=== PATIENT | male | born 1990 | race Caucasian/White ===

== ENCOUNTER 2018-10-24 18:57 | Emergency (ER) | payer MEDICAID, OTHER ==
[~2018-10-24] VITALS: Ht 182.9 cm; Wt 72.6 kg
[~2018-10-24 18:57] MED LIST: HUM7525 SQ; INSU100C4 SQ; INSU100I25 SQ; INSU100V12 SQ; MAGN400C PO; NEED-136 SQ; NO HOME MEDS; POTA10TA36 PO; [UNRECOGNIZED DRUG - CODE]
[2018-10-24 19:23] LABS: EOSINOPHILS % (AUTO) 0 % (0-6); LYMPHOCYTES # (AUTO) 1.1 X10'3 (1.1-4.8); NEUTROPHILS # (AUTO) 12.8 X10'3 (1.8-7.7)
[2018-10-24 19:25] LABS: BASOPHILS % (AUTO) 0.1 % (0-1); HEMATOCRIT 42.3 % (42.0-52.0); HEMOGLOBIN 14.5 g/dl (14.0-17.9); MEAN CORPUSCULAR HGB CONC 34.4 g/dL (33.0-36.5); MEAN CORPUSCULAR VOLUME 93.3 FL (78-98); MONOCYTES # (AUTO) 1.4 X10'3 (0-0.9); MONOCYTES % (AUTO) 9.3 % (2-12); NEUTROPHILS % (AUTO) 83.6 % (42-75); PLATELET COUNT 403 X10'3 (140-440); RED BLOOD COUNT 4.53 X10'6 (4.70-6.10); WHITE BLOOD COUNT 15.4 X10'3 (4.5-11.0)
--- NOTE | 2018-10-24 19:27 | NUR ---
IN ROUTE EMS GAVE IL NS
[2018-10-24 19:32] LABS: ALANINE AMINOTRANSFERASE 63 U/L (12-78); ALBUMIN 3.3 G/DL (3.4-5.0); ALBUMIN/GLOBULIN RATIO 0.9 (1.1-1.5); ALKALINE PHOSPHATASE 129 IU/L (46-116); AMYLASE 29 U/L (25-115); ANION GAP 15 (8-16); ASPARTATE AMINO TRANSFERASE 20 U/L (10-37); BILIRUBIN,TOTAL 0.4 MG/DL (0.1-1.0); BLOOD UREA NITROGEN 34 MG/DL (7-18); BUN/CREATININE RATIO 21.1 (5.4-32.0); CALCIUM 8.6 MG/DL (8.5-10.1); CHLORIDE 108 MMOL/L (99-107); CREATININE 1.61 MG/DL (0.60-1.10); GLUCOSE 215 MG/DL (70-104); LIPASE 54 U/L (73-393); POTASSIUM 3.6 MMOL/L (3.5-5.1); SODIUM 146 MMOL/L (135-145); TOTAL CARBON DIOXIDE 22.8 MMOL/L (24-32); TOTAL PROTEIN 7.1 G/DL (6.4-8.2); eGFR 51 ML/MIN
[2018-10-24 19:36] LABS: PROTHROMBIN TIME 10.4 SECONDS (9.0-12.0)
[2018-10-24] MEDS ORDERED: morphine 4 MG/ML inj SYRINge IV ONE (19:55)
[2018-10-24] MEDS ORDERED: normal saline 1000ML IV soln IVB ONE (19:55)
[2018-10-24] MEDS ORDERED: pantoprazole 40 MG vial IV ONE (19:55)
[2018-10-24] MEDS ORDERED: LORazepam 2 mg/ml vial IV ONE (19:55)
[2018-10-24] MEDS ORDERED: ondansetron/PF 4mg/2ml inj IV ONE (19:55)
[2018-10-24] MEDS ORDERED: iohexol 300mg/ml 100ml inj. ONE (20:27)
--- NOTE | 2018-10-24 20:37 | NUR ---
PT TO CT
[2018-10-24] MEDS ORDERED: PANT-47 PO (21:38)
[2018-10-24] MEDS ORDERED: ONDA8TAB13 PO (21:38)
--- NOTE | 2018-10-24 21:53 | NUR ---
Requested to PO challenge patient. Water and apple juice offered and patient chose apple juice. I was unaware the patient was diabetic and saw an order for accucheck which was 274. Dr. May notified of patient's blood sugar and juice provided prior to checking.
[2018-10-24 22:38] VITALS: BP 159/89
== END 2018-10-24 22:43 | disposition home or self-care (01) ==
LOC: ER 18:58
DX: R10.13 Epigastric pain (principal); R11.10 Vomiting, unspecified; E11.65 Type 2 diabetes mellitus with hyperglycemia; F17.200 Nicotine dependence, unspecified, uncomplicated; F12.90 Cannabis use, unspecified, uncomplicated; Z88.2 Allergy status to sulfonamides; Z79.4 Long term (current) use of insulin; Z79.899 Other long term (current) drug therapy
CPT/HCPCS: 36415; 74176; 80053; 82150; 82948; 83690; 85025; 85610; 96374; 96375; 99284; C9113; J2060; J2270; J2405; J7030; Q9967

== ENCOUNTER 2018-10-27 09:11 | Emergency (ER) | payer MEDICAID ==
[~2018-10-27] VITALS: Ht 183.5 cm; Wt 70.0 kg
[~2018-10-27 09:11] MED LIST changes: +ONDA8TAB13 PO; +PANT-47 PO
[2018-10-27] MEDS ORDERED: ondansetron/PF 4mg/2ml inj IV ONE (09:35)
[2018-10-27] MEDS ORDERED: normal saline 1000ML IV soln IVB ONE (09:35)
[2018-10-27] MEDS ORDERED: LORazepam 2 mg/ml vial IV ONE (09:35)
[2018-10-27] MEDS ORDERED: morphine 4 MG/ML inj SYRINge IV ONE (09:40)
[2018-10-27 10:09] LABS: BASOPHILS % (AUTO) 0.4 % (0-1); EOSINOPHILS % (AUTO) 0.4 % (0-6); HEMATOCRIT 40.3 % (42.0-52.0); HEMOGLOBIN 13.8 g/dl (14.0-17.9); LYMPHOCYTES % (AUTO) 27.3 % (21-51); MEAN CORPUSCULAR HEMOGLOBIN 31.4 PG (27.0-31.0); MEAN CORPUSCULAR HGB CONC 34.2 g/dL (33.0-36.5); MEAN CORPUSCULAR VOLUME 91.9 FL (78-98); MEAN PLATELET VOLUME 7.6 FL (7.4-10.4); MONOCYTES # (AUTO) 0.5 X10'3 (0-0.9); MONOCYTES % (AUTO) 6.9 % (2-12); NEUTROPHILS # (AUTO) 4.7 X10'3 (1.8-7.7); PLATELET COUNT 387 X10'3 (140-440); RED BLOOD COUNT 4.38 X10'6 (4.70-6.10); RED CELL DISTRIBUTION WIDTH 11.5 % (11.5-14.5); WHITE BLOOD COUNT 7.2 X10'3 (4.5-11.0)
[2018-10-27 10:24] LABS: PROTHROMBIN TIME 10.5 SECONDS (9.0-12.0)
[2018-10-27 10:28] LABS: ANION GAP 13 (8-16); BLOOD UREA NITROGEN 21 MG/DL (7-18); BUN/CREATININE RATIO 25.3 (5.4-32.0); CHLORIDE 96 MMOL/L (99-107); CREATININE 0.83 MG/DL (0.60-1.10); GLUCOSE 246 MG/DL (70-104); POTASSIUM 3.8 MMOL/L (3.5-5.1); SODIUM 131 MMOL/L (135-145); TOTAL CARBON DIOXIDE 22.2 MMOL/L (24-32)
[2018-10-27 10:29] LABS: ALANINE AMINOTRANSFERASE 48 U/L (12-78); ALBUMIN/GLOBULIN RATIO 0.9 (1.1-1.5); ALKALINE PHOSPHATASE 126 IU/L (46-116); ASPARTATE AMINO TRANSFERASE 23 U/L (10-37); BILIRUBIN,TOTAL 1.1 MG/DL (0.1-1.0); CALCIUM 8.6 MG/DL (8.5-10.1); LIPASE 109 U/L (73-393); TOTAL PROTEIN 6.5 G/DL (6.4-8.2); eGFR > 90 ML/MIN
[2018-10-27 11:24] LABS: CLARITY,URINE CLEAR (Clear); COLOR,URINE YELLOW (Yellow); GLUCOSE, URINE 500 mg/dl (Neg); KETONES,URINE >=80 mg/dl (Neg); LEUKOCYTE ESTERASE ,URINE NEGATIVE (Neg); NITRITES, URINE NEGATIVE (Neg); OCCULT BLOOD,URINE NEGATIVE (Neg); PH,URINE 5.5 (4.8-8.0); PROTEIN,URINE NEGATIVE (Neg)
[2018-10-27 11:25] LABS: UA COLLECTION TYPE URINAL
[2018-10-27 11:34] LABS: URINE AMPHETAMINE SCREEN NEGATIVE (Neg); URINE BARBITUATE SCREEN NEGATIVE (Neg); URINE BENZODIAZEPINES SCREEN NEGATIVE (Neg); URINE CANNABINOID SCREEN POSITIVE (Neg); URINE COCAINE SCREEN NEGATIVE (Neg); URINE METHADONE SCREEN NEGATIVE (Neg); URINE OPIATE SCREEN POSITIVE (Neg); URINE PHENCYCLIDINE SCREEN NEGATIVE (Neg)
[2018-10-27] MEDS ORDERED: PHE12.5T PO (11:58)
[2018-10-27 12:20] VITALS: BP 122/82
== END 2018-10-27 12:22 | disposition home or self-care (01) ==
LOC: ER 09:12
DX: F12.988 Cannabis use, unspecified with other cannabis-induced disorder (principal); R11.2 Nausea with vomiting, unspecified; E10.9 Type 1 diabetes mellitus without complications; R10.10 Upper abdominal pain, unspecified; R10.84 Generalized abdominal pain; Z88.2 Allergy status to sulfonamides; Z79.4 Long term (current) use of insulin
CPT/HCPCS: 36415; 80053; 80305; 81003; 82948; 83690; 85025; 85610; 96374; 96375; 99283; J2060; J2270; J2405; J7030

== ENCOUNTER 2019-09-24 10:22 | Emergency (ER) | payer MEDICAID ==
[~2019-09-24] VITALS: Ht 188 cm; Wt 72.7 kg
[~2019-09-24 10:22] MED LIST changes: +PROM12.512 PO
[2019-09-24] MEDS ORDERED: insulin regular, human 10 units/0.1 ml syringe IV ONE ×2 (10:50→13:30)
[2019-09-24] MEDS ORDERED: insulin regular, human 10 units/0.1 ml syringe SQ ONE ×2 (10:50→13:30)
[2019-09-24] MEDS ORDERED: ondansetron/PF 4mg/2ml inj IV ONE (10:50)
[2019-09-24 11:05] LABS: BASOPHILS % (AUTO) 0.2 % (0-1); EOSINOPHILS % (AUTO) 0 % (0-6); HEMATOCRIT 44.9 % (42.0-52.0); HEMOGLOBIN 15.1 g/dl (14.0-17.9); LYMPHOCYTES # (AUTO) 1.5 X10'3 (1.1-4.8); LYMPHOCYTES % (AUTO) 8.1 % (21-51); MEAN CORPUSCULAR HEMOGLOBIN 30.8 PG (27.0-31.0); MEAN CORPUSCULAR HGB CONC 33.6 g/dL (33.0-36.5); MEAN CORPUSCULAR VOLUME 91.9 FL (78-98); MEAN PLATELET VOLUME 7.8 FL (7.4-10.4); MONOCYTES # (AUTO) 1.2 X10'3 (0-0.9); MONOCYTES % (AUTO) 6.2 % (2-12); NEUTROPHILS # (AUTO) 15.8 X10'3 (1.8-7.7); NEUTROPHILS % (AUTO) 85.5 % (42-75); PLATELET COUNT 414 X10'3 (140-440); RED BLOOD COUNT 4.88 X10'6 (4.70-6.10); WHITE BLOOD COUNT 18.5 X10'3 (4.5-11.0)
[2019-09-24] MEDS ORDERED: LORazepam 2 mg/ml vial IV ONE (11:20)
[2019-09-24] MEDS ORDERED: normal saline 1000ML IV soln IVB ONE (11:20)
[2019-09-24] MEDS ORDERED: diphenhydrAMINE 50 mg/ml inj IV ONE (11:20)
[2019-09-24] MEDS ORDERED: normal saline 1000ml 1,000 ML IV ONE ×2 (11:20)
[2019-09-24] MEDS ORDERED: metoclopramide 5 mg/ml inj IV ONE (11:20)
[2019-09-24 11:31] LABS: ALANINE AMINOTRANSFERASE 70 U/L (12-78); ALBUMIN/GLOBULIN RATIO 1.2 (1.1-1.5); ALKALINE PHOSPHATASE 134 IU/L (46-116); ANION GAP 21 (8-16); ASPARTATE AMINO TRANSFERASE 39 U/L (10-37); BILIRUBIN,TOTAL 1.2 MG/DL (0.1-1.0); BLOOD UREA NITROGEN 28 MG/DL (7-18); BUN/CREATININE RATIO 18.8 (5.4-32.0); CHLORIDE 86 MMOL/L (99-107); CREATININE 1.49 MG/DL (0.60-1.10); POTASSIUM 5.2 MMOL/L (3.5-5.1); SODIUM 125 MMOL/L (135-145); TOTAL CARBON DIOXIDE 17.6 MMOL/L (24-32); TOTAL PROTEIN 7.4 G/DL (6.4-8.2); eGFR 55 ML/MIN
[2019-09-24 11:34] LABS: GLUCOSE 575 MG/DL (70-104)
[2019-09-24 12:51] VITALS: BP 117/76
[2019-09-24 13:08] LABS: CLARITY,URINE CLEAR (Clear); COLOR,URINE YELLOW (Yellow); GLUCOSE, URINE >=1000 mg/dl (Neg); KETONES,URINE >=80 mg/dl (Neg); LEUKOCYTE ESTERASE ,URINE NEGATIVE (Neg); NITRITES, URINE NEGATIVE (Neg); OCCULT BLOOD,URINE NEGATIVE (Neg); PH,URINE 5.5 (4.8-8.0); PROTEIN,URINE NEGATIVE (Neg); UROBILINOGEN,URINE 0.2 E.U/dL (0.2-1.0)
[2019-09-24 13:11] LABS: UA COLLECTION TYPE URINAL
[2019-09-24 13:24] LABS: BACTERIA,URINE NONE SEEN /HPF (Neg); MUCUS STRANDS NONE SEEN /LPF (Neg); RBC,URINE NONE SEEN /HPF (0-2); SQUAMOUS EPITHELIAL CELL,UR NONE SEEN /LPF (FEW); WBC,URINE NONE SEEN /HPF (0-4)
[2019-09-24] MEDS ORDERED: ONDA4TAB12 PO (13:36)
== END 2019-09-24 15:37 | disposition home or self-care (01) ==
LOC: ER 10:22
DX: E10.65 Type 1 diabetes mellitus with hyperglycemia (principal); E86.0 Dehydration; F12.90 Cannabis use, unspecified, uncomplicated; F10.99 Alcohol use, unspecified with unspecified alcohol-induced disorder; Z88.2 Allergy status to sulfonamides; Z79.4 Long term (current) use of insulin; Z79.899 Other long term (current) drug therapy; Y90.9 Presence of alcohol in blood, level not specified
CPT/HCPCS: 36415; 80053; 81001; 82948; 83605; 85025; 96361; 96372; 96374; 96375; 99283; J1200; J1815; J2060; J2405; J2765; J7030

== ENCOUNTER 2019-11-04 11:40 | Emergency (ER) | payer MEDICAID ==
[~2019-11-04] VITALS: Ht 182.9 cm; Wt 74.0 kg
[~2019-11-04 11:40] MED LIST changes: +ONDA4TAB12 PO
[2019-11-04] MEDS ORDERED: normal saline 1000ML IV soln IVB ONE (12:35)
[2019-11-04] MEDS ORDERED: insulin regular, human U-100 3ml vial - multi-dose SQ ONE (12:35)
[2019-11-04] MEDS ORDERED: insulin regular, human U-100 3ml vial - multi-dose IV ONE (12:35)
[2019-11-04] MEDS ORDERED: ondansetron/PF 4mg/2ml inj IV ONE (12:35)
[2019-11-04] MEDS ORDERED: insulin regular, human 10 units/0.1 ml syringe IV ONE (12:35)
[2019-11-04 12:51] LABS: BASOPHILS # (AUTO) 0.1 X10'3 (0-0.2); EOSINOPHILS # (AUTO) 0.2 X10'3 (0-0.9); EOSINOPHILS % (AUTO) 2.1 % (0-6); HEMATOCRIT 46.7 % (42.0-52.0); LYMPHOCYTES # (AUTO) 2.7 X10'3 (1.1-4.8); LYMPHOCYTES % (AUTO) 24.2 % (21-51); MEAN CORPUSCULAR HEMOGLOBIN 31.6 PG (27.0-31.0); MEAN CORPUSCULAR HGB CONC 34.4 g/dL (33.0-36.5); MEAN CORPUSCULAR VOLUME 91.9 FL (78-98); MEAN PLATELET VOLUME 7.6 FL (7.4-10.4); MONOCYTES # (AUTO) 0.5 X10'3 (0-0.9); MONOCYTES % (AUTO) 4.9 % (2-12); NEUTROPHILS # (AUTO) 7.4 X10'3 (1.8-7.7); NEUTROPHILS % (AUTO) 67.8 % (42-75); PLATELET COUNT 513 X10'3 (140-440); RED BLOOD COUNT 5.08 X10'6 (4.70-6.10); RED CELL DISTRIBUTION WIDTH 12.7 % (11.5-14.5)
[2019-11-04 13:05] LABS: ALANINE AMINOTRANSFERASE 53 U/L (12-78); ALBUMIN 3.8 G/DL (3.4-5.0); ALKALINE PHOSPHATASE 131 IU/L (46-116); ANION GAP 8 (8-16); ASPARTATE AMINO TRANSFERASE 28 U/L (10-37); BILIRUBIN,TOTAL 0.5 MG/DL (0.1-1.0); BLOOD UREA NITROGEN 23 MG/DL (7-18); BUN/CREATININE RATIO 22.5 (5.4-32.0); CALCIUM 9.3 MG/DL (8.5-10.1); CHLORIDE 94 MMOL/L (99-107); CREATININE 1.02 MG/DL (0.60-1.10); POTASSIUM 5.6 MMOL/L (3.5-5.1); SODIUM 129 MMOL/L (135-145); TOTAL CARBON DIOXIDE 27.5 MMOL/L (24-32); TOTAL PROTEIN 7.8 G/DL (6.4-8.2); eGFR 86 ML/MIN
[2019-11-04 13:09] LABS: GLUCOSE 557 MG/DL (70-104)
[2019-11-04] MEDS ORDERED: INSU100C4 SQ (13:34)
[2019-11-04 13:57] VITALS: BP 110/76
== END 2019-11-04 13:52 | disposition home or self-care (01) ==
LOC: ER 11:40
DX: E10.65 Type 1 diabetes mellitus with hyperglycemia (principal); E86.0 Dehydration; F12.90 Cannabis use, unspecified, uncomplicated; Z72.89 Other problems related to lifestyle; Z88.2 Allergy status to sulfonamides; Z79.4 Long term (current) use of insulin; Z79.899 Other long term (current) drug therapy
CPT/HCPCS: 36415; 80053; 82948; 85025; 96361; 96372; 96374; 96375; 99284; J1815; J2405; J7030

== ENCOUNTER 2020-02-03 23:53 | Inpatient (IN) | payer MEDICAID ==
[~2020-02-03] VITALS: Ht 182.9 cm; Wt 71.0 kg
[2020-02-04 00:15] LABS: BASOPHILS # (AUTO) 0.1 X10'3 (0-0.2); BASOPHILS % (AUTO) 0.9 % (0-1); EOSINOPHILS # (AUTO) 0.1 X10'3 (0-0.9); EOSINOPHILS % (AUTO) 1.2 % (0-6); HEMATOCRIT 48.4 % (42.0-52.0); HEMOGLOBIN 16.4 g/dl (14.0-17.9); LYMPHOCYTES # (AUTO) 3.2 X10'3 (1.1-4.8); LYMPHOCYTES % (AUTO) 31.2 % (21-51); MEAN CORPUSCULAR HGB CONC 33.9 g/dL (33.0-36.5); MEAN CORPUSCULAR VOLUME 94.4 FL (78-98); MEAN PLATELET VOLUME 7.6 FL (7.4-10.4); MONOCYTES # (AUTO) 0.4 X10'3 (0-0.9); MONOCYTES % (AUTO) 3.6 % (2-12); NEUTROPHILS # (AUTO) 6.6 X10'3 (1.8-7.7); NEUTROPHILS % (AUTO) 63.1 % (42-75); PLATELET COUNT 522 X10'3 (140-440); RED BLOOD COUNT 5.13 X10'6 (4.70-6.10); RED CELL DISTRIBUTION WIDTH 12.1 % (11.5-14.5); WHITE BLOOD COUNT 10.4 X10'3 (4.5-11.0)
[2020-02-04 00:31] LABS: ALANINE AMINOTRANSFERASE 83 U/L (12-78); ALBUMIN 4.2 G/DL (3.4-5.0); ALBUMIN/GLOBULIN RATIO 1.1 (1.1-1.5); ALKALINE PHOSPHATASE 186 IU/L (46-116); ANION GAP 22 (8-16); ASPARTATE AMINO TRANSFERASE 50 U/L (10-37); BILIRUBIN,TOTAL 0.9 MG/DL (0.1-1.0); BLOOD UREA NITROGEN 24 MG/DL (7-18); BUN/CREATININE RATIO 15.3 (5.4-32.0); CHLORIDE 96 MMOL/L (99-107); CREATININE 1.57 MG/DL (0.60-1.10); GLUCOSE 371 MG/DL (70-104); POTASSIUM 4.7 MMOL/L (3.5-5.1); SODIUM 134 MMOL/L (135-145); TOTAL CARBON DIOXIDE 15.8 MMOL/L (24-32); eGFR 52 ML/MIN
[2020-02-04] MEDS ORDERED: ondansetron/PF 4mg/2ml inj IV ONE (01:05)
[2020-02-04] MEDS ORDERED: normal saline 1000ML IV soln IVB ONE (01:05)
[2020-02-04] MEDS ORDERED: insulin regular, human U-100 3ml vial - multi-dose IV ONE (01:05)
[2020-02-04] MEDS ORDERED: morphine 4 MG/ML inj SYRINge IV ONE (01:05)
[2020-02-04] MEDS ORDERED: proCHLORperazine 10 MG/2 ml inj IV ONE (01:05)
[2020-02-04] MEDS ORDERED: insulin regular, human 10 units/0.1 ml syringe IV ONE (01:05)
[2020-02-04 01:25] LABS: ABG BASE EXCESS -12.8 mmol/L (-2.0-3.0); ABG HCO3 12.7 mmol/L (22.0-26.0); ABG OXYGEN SATURATION 97.2 % (95-98); ABG PCO2 (T) 30.1 mmHg (35.0-45.0); ABG PO2 (T) 106.2 mmHg (83-108); ALLEN'S TEST POSITIVE; FCOHb 0.8 % (0.5-1.5); FMetHb 0.3 % (0.3-1.12); FO2Hb 96.1 % (94-100); PATIENT TEMPERATURE 37.6; TOTAL HEMOGLOBIN 16.7 G/dl (14.0-17.9)
[2020-02-04] MEDS ORDERED: Insulin Reg/NS 100units/100mL 100 ML IV SCH ×2 (01:28→06:00)
[2020-02-04] MEDS ORDERED: sodium bicarbonate (8.4%) inj. 50 MEQ in dextrose 5% water 500ml 250 ML IV PRN ×2 (01:28→02:00)
[2020-02-04] MEDS ORDERED: normal saline 1000ml 1,000 ML IV SCH ×4 (01:28→02:00)
[2020-02-04] MEDS ORDERED: potassium CL 20mEq in D5-1/2NS 1,000 ML IV PRN ×2 (01:28→02:00)
[2020-02-04] MEDS ORDERED: sodium bicarbonate (8.4%) inj. 100 MEQ in dextrose 5% water 500ml 500 ML IV PRN ×2 (01:28→02:00)
[2020-02-04] MEDS ORDERED: sodium phosphate inj. 30 MMOL in dextrose 5%-water 240 ML IV PRN (01:30)
[2020-02-04] MEDS ORDERED: Neutra Phos packet PO PRN (01:30)
[2020-02-04] MEDS ORDERED: potassium CL 10mEq/100ml bag 100 ML IV PRN ×6 (01:30→02:00)
[2020-02-04] MEDS ORDERED: insulin regular, human U-100 3ml vial - multi-dose IV PRN ×2 (01:30→02:00)
[2020-02-04] MEDS ORDERED: potassium Cl 20 mEq SR tablet PO PRN ×6 (01:30→02:00)
[2020-02-04] MEDS ORDERED: sodium phosphate inj. 15 MMOL in dextrose 5%-water 245 ML IV PRN (01:30)
[2020-02-04] MEDS ORDERED: magnesium Cl slow-release 64mg tablet PO PRN (02:00)
[2020-02-04] MEDS: normal saline 1000ml 1,000 ML IV SCH ×4 (02:00→18:05)
[2020-02-04] MEDS ORDERED: HYDROcodone/acetaminophen 5mg/325mg tablet PO PRN (02:00)
[2020-02-04] MEDS ORDERED: morphine 2 MG/ML inj. syringe IV PRN (02:00)
[2020-02-04] MEDS ORDERED: ondansetron/PF 4mg/2ml inj IV PRN (02:00)
[2020-02-04] MEDS ORDERED: acetaminophen 325mg tablet PO PRN ×2 (02:00)
[2020-02-04] MEDS ORDERED: magnesium 2GM in 50ml NS 50 ML IV PRN (02:00)
[2020-02-04] MEDS ORDERED: magnesium 4gm in 100ml NS 100 ML IV PRN (02:00)
[2020-02-04 02:25] LABS: PHOSPHORUS 5.6 MG/DL (2.3-4.5)
[2020-02-04 02:28] LABS: HEMOGLOBIN A1C 9.3 % (4.5-6.2)
[2020-02-04] MEDS ORDERED: LORazepam 2 mg/ml vial IV PRN (02:55)
[2020-02-04] MEDS ORDERED: LORazepam 1 MG tablet PO PRN (02:55)
[2020-02-04 03:18] LABS: ALBUMIN 3.6 G/DL (3.4-5.0); ANION GAP 21 (8-16); BLOOD UREA NITROGEN 23 MG/DL (7-18); BUN/CREATININE RATIO 15.4 (5.4-32.0); CALCIUM 8.7 MG/DL (8.5-10.1); CHLORIDE 102 MMOL/L (99-107); CREATININE 1.49 MG/DL (0.60-1.10); GLUCOSE 242 MG/DL (70-104); POTASSIUM 4.1 MMOL/L (3.5-5.1); SODIUM 141 MMOL/L (135-145); TOTAL CARBON DIOXIDE 18.5 MMOL/L (24-32); eGFR 55 ML/MIN
[2020-02-04] MEDS ORDERED: dextrose 5%-1/2 normal saline 1,000 ML IV ONE (04:32)
--- NOTE | 2020-02-04 04:50 | NUR ---
Patient in room ED 5. I have received report from Deepthi HOLCOMB and had the opportunity to ask questions and awaiting arrival of patient to the PCU unit.
[2020-02-04 05:19] VITALS: BP 113/71
--- NOTE | 2020-02-04 05:20 | NUR ---
Patient arrived to the PCU unit at this time. He is alert and oriented and able to make his needs known but he is very fatigued. He was able to transfer from the rprewitt to the bed independently without issues. No complaints of nausea at this time. He fell asleep quickly after getting into bed but does answer questions appropriately when asked. He is on room air. Vitals are stable. His blood sugar at this time is 111 so D5 1/2 with K was increased to the max rate at 250mls/hr and will reassess on the next blood sugar check if he needs to switch to D10 or decrease the insulin. Currently the insulin is going at 5 units/hr. All safety precautions in place. Call light in reach. Will continue to monitor.
[2020-02-04] MEDS ORDERED: DEXTROSE 10 % AND 0.45 % NACL 1,000 ML IV SCH (05:45)
[2020-02-04] MEDS ORDERED: Potassium Cl inj 20 MEQ in DEXTROSE 10 % AND 0.45 % NACL 1,000 ML IV SCH (05:50)
--- NOTE | 2020-02-04 05:50 | NUR ---
Spoke with Dr. Craig about patient's glucose already being down to 111. She did not order any change on the insulin rate but did order to change to D10 1/2 NS with 20 mEq K.
[2020-02-04 06:00] VITALS: BP 111/69
--- NOTE | 2020-02-04 06:00 | NUR ---
Called pharmacy back and fluids are still not ready yet but pharmacy will notify nursing when they are prepared.
--- NOTE | 2020-02-04 06:00 | NUR ---
Patient in room PCU 3026. I have received report from Trupti and had the opportunity to ask questions and assume patient care.
--- NOTE | 2020-02-04 06:13 | NUR ---
Patient in room PCU 3026. I have received report from Ira HOLCOMB and had the opportunity to ask questions and assume patient care. Patient on DKA protocol, insulin gtt at 5, D51/2NS at 250 blood glucose was 111. Patient resting in bed, offers no complaints, will continue to monitor.
--- NOTE | 2020-02-04 06:17 | NUR ---
Problems reprioritized. Patient report given, questions answered & plan of care reviewed with Candelaria HOLCOMB and Lisa HOLCOMB.
--- NOTE | 2020-02-04 06:17 | NUR ---
Problems reprioritized. Patient report given, questions answered & plan of care reviewed with Candelaria HOLCOMB and Lisa HOCLOMB.
[2020-02-04 06:49] LABS: ALBUMIN 3.3 G/DL (3.4-5.0); ANION GAP 13 (8-16); BLOOD UREA NITROGEN 21 MG/DL (7-18); BUN/CREATININE RATIO 17.6 (5.4-32.0); CALCIUM 8.4 MG/DL (8.5-10.1); CHLORIDE 106 MMOL/L (99-107); CREATININE 1.19 MG/DL (0.60-1.10); GLUCOSE 111 MG/DL (70-104); PHOSPHORUS 4.1 MG/DL (2.3-4.5); POTASSIUM 4.1 MMOL/L (3.5-5.1); SODIUM 143 MMOL/L (135-145); eGFR 72 ML/MIN
[2020-02-04] MEDS: K and/or MAG REPLACEMENT MC SCH ×2 (07:39→19:35)
[2020-02-04] MEDS: nicotine 14mg patch - 24hr TD SCH (07:42)
[2020-02-04] MEDS: heparin, porcine 5000 units/ml vial SQ SCH ×2 (07:42→20:36)
[2020-02-04] MEDS ORDERED: insulin Lispro (HumaLOG) vial - multi-dose SQ SCH (07:55)
[2020-02-04] MEDS ORDERED: glucagon, human recombinant 1mg kit SUBCUT PRN ×2 (07:55→10:10)
[2020-02-04] MEDS ORDERED: dextrose 50%-water 50ml dispensing syringe IV PRN ×4 (07:55→10:10)
[2020-02-04] MEDS ORDERED: dextrose ORAL solution 15 GM/59 ML bottle PO PRN ×4 (07:55→10:10)
[2020-02-04] MEDS ORDERED: MESSAGE TO PHARMACY PO ONE ×2 (07:55→10:10)
[2020-02-04] MEDS ORDERED: K and/or MAG REPLACEMENT MC SCH ×2 (08:00)
--- NOTE | 2020-02-04 08:05 | NUR ---
promotional table spacer PAGER ID: [phone] MESSAGE: Jag [id number]. Pt's BG is currently 128 on D10 1/2 NS and 5 units on insulin with the DKA protocol. Can we decrease the insulin to 3 and keep him on the protocol? Thanks, Candelaria [phone]
[2020-02-04] MEDS ORDERED: INSU100V40 SQ (10:30)
[2020-02-04 11:00] VITALS: BP 103/61
[2020-02-04] MEDS: insulin Lispro (HumaLOG) vial - multi-dose SQ SCH (13:39)
--- NOTE | 2020-02-04 14:31 | NUR ---
DM Consult: Pt admit w/ DKA hx T1DM A1C 9.3; pt reports no insulin past 2 days per EMR. Hx chronic etoh, smoking, and cannabis abuse per MD note. Advanced to carb controlled diet from NPO PO 50-75% first meal. LBM 02/02 w/ abdominal pain and nausea present per EMR. BAR d/w RN regarding thiamin, folic, MVI given etoh hx if MD agreeable. GLU 151 down from 400 on admit. Pt would benefit from DM ed once more stable prior to discharge. Rec: 1. continue carb controlled diet 2. monitor for ONS needs 3. thiamin, folic, MVI for etoh hx if MD agreeable 4. bowel care as needed 5. wt per rx 6. DM ed once stable prior to discharge Addendum: 02/04/20 at [address] Amended: Links added.
[2020-02-04 15:00] VITALS: BP 104/65
--- NOTE | 2020-02-04 17:38 | NUR ---
Orientee documentation: I have reviewed and agree with interventions, assessments performed and documented by Deirdre HOLCOMB. Orientee Medication Administration: For this medication-pass time frame, medication were reviewed, dispensed, administered and documented per hospital policy by Deirdre HOLCOMB.
--- NOTE | 2020-02-04 18:14 | NUR ---
Problems reprioritized. Patient report given, questions answered & plan of care reviewed with Ira HOLCOMB and Virginia HOLCOMB[].
--- NOTE | 2020-02-04 18:16 | NUR ---
Problems reprioritized. Patient report given, questions answered & plan of care reviewed with Ira HOLCOMB. Patient stable at transfer of care.
--- NOTE | 2020-02-04 18:28 | NUR ---
Patient in room PCU 3026. I have received report from Candelaria BO and Lisa Bo and had the opportunity to ask questions and assume patient care.
--- NOTE | 2020-02-04 18:28 | NUR ---
Patient in room PCU 3012. I have received report from Candelaria HOLCOMB and Lisa HOLCOMB and had the opportunity to ask questions and assume patient care.
[2020-02-04 18:40] LABS: CLARITY,URINE SLIGHTLY CLOUDY (Clear); COLOR,URINE YELLOW (Yellow); GLUCOSE, URINE 500 mg/dl (Neg); KETONES,URINE 40 mg/dl (Neg); LEUKOCYTE ESTERASE ,URINE NEGATIVE (Neg); NITRITES, URINE NEGATIVE (Neg); OCCULT BLOOD,URINE TRACE-INTACT (Neg); PROTEIN,URINE NEGATIVE (Neg); UROBILINOGEN,URINE 0.2 E.U/dL (0.2-1.0)
[2020-02-04 18:48] LABS: UA COLLECTION TYPE URINAL
[2020-02-04 18:50] LABS: BACTERIA,URINE NONE SEEN /HPF (Neg); RBC,URINE 0-2 /HPF (0-2); SQUAMOUS EPITHELIAL CELL,UR FEW /LPF (FEW); WBC,URINE 0-4 /HPF (0-4)
[2020-02-04 18:56] LABS: URINE AMPHETAMINE SCREEN POSITIVE (Neg); URINE BARBITUATE SCREEN NEGATIVE (Neg); URINE BENZODIAZEPINES SCREEN NEGATIVE (Neg); URINE CANNABINOID SCREEN POSITIVE (Neg); URINE COCAINE SCREEN NEGATIVE (Neg); URINE METHADONE SCREEN NEGATIVE (Neg); URINE OPIATE SCREEN POSITIVE (Neg); URINE PHENCYCLIDINE SCREEN NEGATIVE (Neg)
--- NOTE | 2020-02-04 19:54 | NUR ---
PAGER ID: [phone] MESSAGE: Patient David Becerra RM [id number] Patient just had a 3 beat run of V-tach. He is asymptomatic. Thanks. Ira HOLCOMB ext.
[2020-02-04] MEDS ORDERED: temazepam 15mg capsule PO PRN (21:00)
[2020-02-04] MEDS ORDERED: insulin glargine (Lantus) pen - multi-dose SQ SCH ×2 (21:00)
[2020-02-04 22:00] VITALS: BP 115/68
[2020-02-05 02:00] VITALS: BP 114/71
[2020-02-05] MEDS: normal saline 1000ml 1,000 ML IV SCH ×2 (02:27→09:27)
[2020-02-05 05:47] LABS: BASOPHILS # (AUTO) 0.1 X10'3 (0-0.2); BASOPHILS % (AUTO) 0.8 % (0-1); EOSINOPHILS # (AUTO) 0.2 X10'3 (0-0.9); EOSINOPHILS % (AUTO) 3.5 % (0-6); HEMOGLOBIN 13.1 g/dl (14.0-17.9); LYMPHOCYTES # (AUTO) 2.9 X10'3 (1.1-4.8); LYMPHOCYTES % (AUTO) 42.1 % (21-51); MEAN CORPUSCULAR HGB CONC 34.4 g/dL (33.0-36.5); MEAN CORPUSCULAR VOLUME 92.8 FL (78-98); MEAN PLATELET VOLUME 7.4 FL (7.4-10.4); MONOCYTES # (AUTO) 0.4 X10'3 (0-0.9); MONOCYTES % (AUTO) 5.1 % (2-12); NEUTROPHILS # (AUTO) 3.4 X10'3 (1.8-7.7); NEUTROPHILS % (AUTO) 48.5 % (42-75); PLATELET COUNT 320 X10'3 (140-440); RED BLOOD COUNT 4.09 X10'6 (4.70-6.10); RED CELL DISTRIBUTION WIDTH 12.2 % (11.5-14.5)
[2020-02-05 06:00] VITALS: BP 106/71
--- NOTE | 2020-02-05 06:02 | NUR ---
Problems reprioritized. Patient report given, questions answered & plan of care reviewed with Candelaria HOLCOMB and Deirdre HOLCOMB.
[2020-02-05 06:05] LABS: ALANINE AMINOTRANSFERASE 49 U/L (12-78); ALBUMIN 2.6 G/DL (3.4-5.0); ALKALINE PHOSPHATASE 118 IU/L (46-116); ANION GAP 4 (8-16); ASPARTATE AMINO TRANSFERASE 26 U/L (10-37); BILIRUBIN,TOTAL 0.6 MG/DL (0.1-1.0); BLOOD UREA NITROGEN 11 MG/DL (7-18); BUN/CREATININE RATIO 10.7 (5.4-32.0); CALCIUM 8.1 MG/DL (8.5-10.1); CHLORIDE 107 MMOL/L (99-107); CREATININE 1.03 MG/DL (0.60-1.10); GLUCOSE 179 MG/DL (70-104); MAGNESIUM 1.5 MG/DL (1.5-2.4); PHOSPHORUS 2.5 MG/DL (2.3-4.5); POTASSIUM 3.8 MMOL/L (3.5-5.1); SODIUM 139 MMOL/L (135-145); TOTAL CARBON DIOXIDE 27.6 MMOL/L (24-32); TOTAL PROTEIN 5.3 G/DL (6.4-8.2); eGFR 85 ML/MIN
--- NOTE | 2020-02-05 06:05 | NUR ---
Patient in room PCU 3012. I have received report from Ira HOLCOMB and Becca HOLCOMB and had the opportunity to ask questions and assume patient care.
[2020-02-05] MEDS: K and/or MAG REPLACEMENT MC SCH (08:00)
[2020-02-05] MEDS: heparin, porcine 5000 units/ml vial SQ SCH (08:00)
[2020-02-05] MEDS: nicotine 14mg patch - 24hr TD SCH (08:00)
[2020-02-05] MEDS: insulin Lispro (HumaLOG) vial - multi-dose SQ SCH (08:10)
[2020-02-05] MEDS ORDERED: INSU100I31 SQ (10:55)
--- NOTE | 2020-02-05 11:47 | NUR ---
Patient was discharged to home. He was picked up by his father at 1143. I went over the discharge instructions and medications with the patient and he verbalized understanding of the information. Rx was faxed to [facility] on [address] in [place] . PIV was removed with cannula intact.
--- NOTE | 2020-02-05 11:51 | NUR ---
F/u: Pt seen at bedside prior to discharge for written and verbal DM education. Pt states he goes to [facility] q month for diabetes. Pt states he checks his BG levels before and after meals with additional checks if he's not feeling well. Pt reports BG levels 200-300s after meals and states he uses a sliding scale for insulin rx. Pt states he believes his current admit dx is r/t not having insulin for the last couple of days. Pt states he has a f/u appointment at the clinic tomorrow and will further discuss med rx and BG levels with MD in view of A1c of 9.3%. RD contact information provided. Pt endorses a good appetite and denies food allergies, difficulty chewing/swallowing, or constipation/diarrhea. Will remain available. Addendum: 02/05/20 at [address] Amended: Links added.
== END 2020-02-05 11:43 | disposition home or self-care (01) | DRG 420 ==
LOC: ER 23:53 → PCU 3S 02-04 02:00 → UNDOADMIN 02-04 03:13 → ED HOLD 02-04 03:13 → PCU 3S 02-04 05:09
PROVIDERS: ADMIT Internal Medicine; ATTEND Internal Medicine
DX: E10.10 Type 1 diabetes mellitus with ketoacidosis without coma (principal); N17.0 Acute kidney failure with tubular necrosis; E10.22 Type 1 diabetes mellitus with diabetic chronic kidney disease; E10.51 Type 1 diabetes mellitus with diabetic peripheral angiopathy without gangrene; N18.9 Chronic kidney disease, unspecified; Z91.19 Patient's noncompliance with other medical treatment and regimen; F10.10 Alcohol abuse, uncomplicated; F12.10 Cannabis abuse, uncomplicated; F15.10 Other stimulant abuse, uncomplicated; F17.200 Nicotine dependence, unspecified, uncomplicated; E78.00 Pure hypercholesterolemia, unspecified; F02.80 Dementia in other diseases classified elsewhere, unspecified severity, without behavioral disturbance, psychotic disturbance, mood disturbance, and anxiety; Z71.6 Tobacco abuse counseling; Z79.4 Long term (current) use of insulin; Z86.73 Personal history of transient ischemic attack (TIA), and cerebral infarction without residual deficits
CPT/HCPCS: 36415; 36600; 80048; 80053; 80305; 81001; 82803; 82948; 83036; 83735; 84100; 84443; 85018; 85025; 87081; 96361; 96365; 96375; 96376; 99285; G0378; J0780; J1644; J1815; J2270; J2405; J3480; J7030

== ENCOUNTER 2021-06-19 18:18 | Emergency (ER) | payer MEDICAID ==
[~2021-06-19] VITALS: Ht 182.9 cm; Wt 72.7 kg
[~2021-06-19 18:18] MED LIST changes: -HUM7525 SQ; -INSU100C4 SQ; -INSU100I25 SQ; +INSU100I31 SQ; -INSU100V12 SQ; +INSU100V40 SQ; -MAGN400C PO; -NEED-136 SQ; -NO HOME MEDS; -ONDA4TAB12 PO; -ONDA8TAB13 PO; -PANT-47 PO; -POTA10TA36 PO; -PROM12.512 PO; -[UNRECOGNIZED DRUG - CODE]
[2021-06-19 18:30] VITALS: BP 120/88
[2021-06-19 19:07] LABS: BASOPHILS % (AUTO) 0.7 % (0-1); EOSINOPHILS % (AUTO) 0.8 % (0-6); HEMATOCRIT 39.1 % (42.0-52.0); HEMOGLOBIN 13.8 g/dl (14.0-17.9); LYMPHOCYTES # (AUTO) 1.7 X10'3 (1.1-4.8); LYMPHOCYTES % (AUTO) 29.5 % (21-51); MEAN CORPUSCULAR HEMOGLOBIN 31.9 PG (27.0-31.0); MEAN CORPUSCULAR HGB CONC 35.4 g/dL (33.0-36.5); MEAN CORPUSCULAR VOLUME 90.1 FL (78-98); MEAN PLATELET VOLUME 7.7 FL (7.4-10.4); MONOCYTES # (AUTO) 0.5 X10'3 (0-0.9); MONOCYTES % (AUTO) 9.4 % (2-12); NEUTROPHILS # (AUTO) 3.4 X10'3 (1.8-7.7); NEUTROPHILS % (AUTO) 59.6 % (42-75); PLATELET COUNT 234 X10'3 (140-440); RED BLOOD COUNT 4.34 X10'6 (4.70-6.10); RED CELL DISTRIBUTION WIDTH 11.9 % (11.5-14.5); WHITE BLOOD COUNT 5.7 X10'3 (4.5-11.0)
[2021-06-19 19:20] LABS: CLARITY,URINE CLEAR (Clear); COLOR,URINE YELLOW (Yellow); GLUCOSE, URINE >=1000 mg/dl (Neg); KETONES,URINE NEGATIVE (Neg); PROTEIN,URINE NEGATIVE (Neg); UA COLLECTION TYPE CLN CATCH MIDSTREAM
[2021-06-19 19:21] LABS: ALANINE AMINOTRANSFERASE 39 U/L (12-78); ALBUMIN 3.2 G/DL (3.4-5.0); ALBUMIN/GLOBULIN RATIO 0.9 (1.1-1.5); ALKALINE PHOSPHATASE 90 IU/L (46-116); ANION GAP 7 (8-16); ASPARTATE AMINO TRANSFERASE 29 U/L (10-37); BILIRUBIN,TOTAL 0.2 MG/DL (0.1-1.0); BLOOD UREA NITROGEN 10 MG/DL (7-18); CALCIUM 8.7 MG/DL (8.5-10.1); CHLORIDE 100 MMOL/L (99-107); CREATININE 0.77 MG/DL (0.60-1.10); GLUCOSE 195 MG/DL (70-104); LIPASE 82 U/L (73-393); POTASSIUM 3.9 MMOL/L (3.5-5.1); SODIUM 135 MMOL/L (135-145); TOTAL CARBON DIOXIDE 27.6 MMOL/L (24-32); TOTAL PROTEIN 6.7 G/DL (6.4-8.2); eGFR > 90 ML/MIN
[2021-06-19 19:21] LABS: LEUKOCYTE ESTERASE ,URINE NEGATIVE (Neg); NITRITES, URINE NEGATIVE (Neg); OCCULT BLOOD,URINE TRACE-INTACT (Neg); UROBILINOGEN,URINE 0.2 E.U/dL (0.2-1.0)
[2021-06-19 19:24] LABS: WBC,URINE NONE SEEN /HPF (0-4)
[2021-06-19 19:25] LABS: BACTERIA,URINE NONE SEEN /HPF (Neg); RBC,URINE 0-2 /HPF (0-2); SQUAMOUS EPITHELIAL CELL,UR NONE SEEN /LPF (FEW)
== END 2021-06-19 23:23 | disposition left against medical advice (07) ==
LOC: ER 18:19
DX: Z53.21 Procedure and treatment not carried out due to patient leaving prior to being seen by health care provider (principal)
CPT/HCPCS: 36415; 80053; 81001; 82948; 83690; 85025

== ENCOUNTER 2022-07-11 14:12 | Emergency (ER) | payer MEDICAID ==
[~2022-07-11] VITALS: Ht 188 cm; Wt 79.5 kg
[2022-07-11] MEDS ORDERED: normal saline 1000ML IV soln IVB ONE ×2 (15:30→21:05)
[2022-07-11 16:02] LABS: BASOPHILS % (AUTO) 0.3 % (0-1); EOSINOPHILS % (AUTO) 0.1 % (0-6); HEMATOCRIT 43.1 % (42.0-52.0); HEMOGLOBIN 14.8 g/dl (14.0-17.9); LYMPHOCYTES # (AUTO) 1.6 X10'3 (1.1-4.8); LYMPHOCYTES % (AUTO) 11.5 % (21-51); MEAN CORPUSCULAR HEMOGLOBIN 31.4 PG (27.0-31.0); MEAN CORPUSCULAR HGB CONC 34.5 g/dL (33.0-36.5); MEAN CORPUSCULAR VOLUME 91.1 FL (78-98); MEAN PLATELET VOLUME 7.2 FL (7.4-10.4); MONOCYTES # (AUTO) 0.7 X10'3 (0-0.9); MONOCYTES % (AUTO) 4.9 % (2-12); NEUTROPHILS # (AUTO) 11.4 X10'3 (1.8-7.7); NEUTROPHILS % (AUTO) 83.2 % (42-75); PLATELET COUNT 385 X10'3 (140-440); RED BLOOD COUNT 4.73 X10'6 (4.70-6.10); RED CELL DISTRIBUTION WIDTH 12.1 % (11.5-14.5); WHITE BLOOD COUNT 13.8 X10'3 (4.5-11.0)
[2022-07-11 16:09] LABS: ALANINE AMINOTRANSFERASE 89 U/L (12-78); ALBUMIN 2.9 G/DL (3.4-5.0); ALBUMIN/GLOBULIN RATIO 0.9 (1.1-1.5); ALKALINE PHOSPHATASE 156 IU/L (46-116); ANION GAP 11 (8-16); ASPARTATE AMINO TRANSFERASE 55 U/L (10-37); BILIRUBIN,TOTAL 0.6 MG/DL (0.1-1.0); BLOOD UREA NITROGEN 22 MG/DL (7-18); BUN/CREATININE RATIO 22.9 (5.4-32.0); CALCIUM 8.7 MG/DL (8.5-10.1); CHLORIDE 101 MMOL/L (99-107); CREATININE 0.96 MG/DL (0.60-1.10); GLUCOSE 101 MG/DL (70-104); POTASSIUM 3.2 MMOL/L (3.5-5.1); SODIUM 140 MMOL/L (135-145); TOTAL CARBON DIOXIDE 28.3 MMOL/L (24-32); TOTAL PROTEIN 6.3 G/DL (6.4-8.2); eGFR > 90 ML/MIN
[2022-07-11 16:20] LABS: MAGNESIUM 1.9 MG/DL (1.5-2.4); PHOSPHORUS 2.4 MG/DL (2.3-4.5)
[2022-07-11] MEDS ORDERED: potassium Cl 20 mEq SR tablet PO ONE (16:20)
[2022-07-11 16:33] LABS: LIPASE 62 U/L (73-393)
[2022-07-11] MEDS ORDERED: ondansetron/PF 4mg/2ml inj IV ONE (20:45)
[2022-07-11 20:57] LABS: ABG BASE EXCESS 1.4 mmol/L (-2.0-2.0); ABG OXYGEN SATURATION 97.4 % (94-97); ABG PCO2 (T) 36.3 mmHg (35.0-48.0); ABG PO2 (T) 93.2 mmHg (75.0-100.0); ALLEN'S TEST POSITIVE; FCOHb 0.7 % (0.0-3.9); FMetHb 0.2 % (0.0-1.5); FO2Hb 96.5 % (94-97); PATIENT TEMPERATURE 36.8; TOTAL HEMOGLOBIN 14.2 G/dl (14.0-17.9)
[2022-07-11] MEDS ORDERED: ONDA4TAB12 PO (22:25)
[2022-07-11 23:02] VITALS: BP 121/76
== END 2022-07-11 22:45 | disposition home or self-care (01) ==
LOC: ER 14:12
DX: E10.65 Type 1 diabetes mellitus with hyperglycemia (principal)
CPT/HCPCS: 36415; 36600; 80053; 82803; 82948; 83690; 83735; 84100; 84443; 84484; 85018; 85025; 96361; 96374; 99283; J2405; J7030

== ENCOUNTER 2023-07-06 07:38 | Inpatient (IN) | payer MEDICAID ==
[~2023-07-06] VITALS: Ht 182.9 cm; Wt 88.0 kg
[~2023-07-06 07:38] MED LIST changes: +ONDA4TAB12 PO
[2023-07-06] MEDS ORDERED: normal saline 1000ML IV soln IVB ONE (08:05)
[2023-07-06] MEDS ORDERED: chlorproMAZINE 25mg/ml inj. IV ONE (08:05)
[2023-07-06 08:35] LABS: ABG BASE EXCESS -9.4 mmol/L (-2.0-2.0); ABG HCO3 14.7 mmol/L (22.0-26.0); ABG PCO2 (T) 27.5 mmHg (35.0-48.0); ABG PH (T) 7.346 (7.340-7.440); ABG PO2 (T) 91.4 mmHg (75.0-100.0); ALLEN'S TEST POSITIVE; FCOHb 0.7 % (0.0-3.9); FLOW 0 L/min; FMetHb 0.3 % (0.0-1.5); MODE ROOM AIR; PATIENT TEMPERATURE 36.9; TOTAL HEMOGLOBIN 13.7 G/dl (14.0-17.9)
[2023-07-06 08:40] LABS: BASOPHILS # (AUTO) 0.1 X10'3 (0-0.2); BASOPHILS % (AUTO) 0.5 % (0-1); EOSINOPHILS % (AUTO) 0 % (0-6); HEMATOCRIT 38.6 % (42.0-52.0); HEMOGLOBIN 12.9 g/dl (14.0-17.9); LYMPHOCYTES % (AUTO) 4.5 % (21-51); MEAN CORPUSCULAR HEMOGLOBIN 30.2 PG (27.0-31.0); MEAN CORPUSCULAR HGB CONC 33.5 g/dL (33.0-36.5); MEAN CORPUSCULAR VOLUME 90.3 FL (78-98); MEAN PLATELET VOLUME 8.8 FL (7.4-10.4); MONOCYTES # (AUTO) 0.9 X10'3 (0-0.9); MONOCYTES % (AUTO) 4.3 % (2-12); NEUTROPHILS # (AUTO) 19.8 X10'3 (1.8-7.7); NEUTROPHILS % (AUTO) 90.7 % (42-75); PLATELET COUNT 370 X10'3 (140-440); RED BLOOD COUNT 4.28 X10'6 (4.70-6.10); RED CELL DISTRIBUTION WIDTH 12.4 % (11.5-14.5); WHITE BLOOD COUNT 21.8 X10'3 (4.5-11.0)
[2023-07-06 08:51] LABS: BILIRUBIN,URINE SMALL (Neg); CLARITY,URINE CLEAR (Clear); COLOR,URINE YELLOW (Yellow); GLUCOSE, URINE 500 mg/dl (Neg); KETONES,URINE >=80 mg/dl (Neg); LEUKOCYTE ESTERASE ,URINE NEGATIVE (Neg); NITRITES, URINE NEGATIVE (Neg); OCCULT BLOOD,URINE TRACE-INTACT (Neg); PROTEIN,URINE 100 mg/dl (Neg); UROBILINOGEN,URINE 0.2 E.U/dL (0.2-1.0)
[2023-07-06 08:53] LABS: UA COLLECTION TYPE CLN CATCH MIDSTREAM
[2023-07-06 09:18] LABS: ALANINE AMINOTRANSFERASE 38 U/L (12-78); ALBUMIN 3.6 G/DL (3.4-5.0); ALBUMIN/GLOBULIN RATIO 1.3 (1.1-1.5); ALKALINE PHOSPHATASE 71 IU/L (46-116); ANION GAP 19 (8-16); ASPARTATE AMINO TRANSFERASE 23 U/L (10-37); BLOOD UREA NITROGEN 28 MG/DL (7-18); BUN/CREATININE RATIO 31.1 (10.0-20.0); CALCIUM 8.6 MG/DL (8.5-10.1); CHLORIDE 101 MMOL/L (99-107); GLUCOSE 313 MG/DL (70-104); LIPASE 13 U/L (16-77); MAGNESIUM 1.7 MG/DL (1.5-2.4); SODIUM 139 MMOL/L (135-145); TOTAL CARBON DIOXIDE 18.9 MMOL/L (24-32); TOTAL PROTEIN 6.3 G/DL (6.4-8.2); eCRCL 128 ML/MIN; eGFR > 90 ML/MIN
[2023-07-06 09:19] LABS: HYALINE CASTS 0-3 /LPF (NEGATIVE); MUCUS STRANDS MODERATE /LPF (Neg); SQUAMOUS EPITHELIAL CELL,UR FEW /LPF (FEW)
[2023-07-06 09:21] LABS: BACTERIA,URINE FEW /HPF (Neg); RBC,URINE 0-2 /HPF (0-2); WBC,URINE 0-4 /HPF (0-4)
[2023-07-06] MEDS: normal saline 1000ml 1,000 ML IV SCH ×10 (09:30→23:01)
[2023-07-06] MEDS ORDERED: Neutra Phos packet PO PRN ×2 (09:30→11:35)
[2023-07-06] MEDS ORDERED: Insulin Reg/NS 100units/100mL 100 ML IV SCH ×2 (09:30→11:35)
[2023-07-06] MEDS ORDERED: potassium CL 20mEq in D5-1/2NS 1,000 ML IV PRN ×2 (09:30→11:35)
[2023-07-06] MEDS ORDERED: iohexol 300mg/ml 100ml inj. ONE (09:35)
[2023-07-06] MEDS ORDERED: insulin regular, human 10 units/0.1 ml syringe IV ONE (10:40)
--- NOTE | 2023-07-06 10:40 | NUR ---
STILL AWAITING FOR INSULIN FROM THE PHARMACY
[2023-07-06 10:50] LABS: PHOSPHORUS 3.5 MG/DL (2.3-4.5)
[2023-07-06 11:00] LABS: ACETONE MODERATE (NEGATIVE)
[2023-07-06 11:03] LABS: ALBUMIN 3.4 G/DL (3.4-5.0); ANION GAP 16 (8-16); BLOOD UREA NITROGEN 26 MG/DL (7-18); BUN/CREATININE RATIO 26.3 (10.0-20.0); CALCIUM 8.3 MG/DL (8.5-10.1); CHLORIDE 104 MMOL/L (99-107); CREATININE 0.99 MG/DL (0.60-1.10); GLUCOSE 303 MG/DL (70-104); POTASSIUM 4.3 MMOL/L (3.5-5.1); SODIUM 139 MMOL/L (135-145); TOTAL CARBON DIOXIDE 18.8 MMOL/L (24-32); eCRCL 116 ML/MIN; eGFR 87 ML/MIN
[2023-07-06] MEDS ORDERED: acetaminophen 325mg tablet PO PRN (11:35)
[2023-07-06] MEDS ORDERED: HYDROmorphone/PF 0.2 MG/ML SYRINGE IV PRN (11:35)
[2023-07-06] MEDS ORDERED: sodium phosphate inj. 15 MMOL in dextrose 5%-water 250 ML IV PRN (11:35)
[2023-07-06] MEDS ORDERED: magnesium 2GM in 50ml NS 50 ML IV PRN (11:35)
[2023-07-06] MEDS ORDERED: sodium bicarbonate (8.4%) inj. 50 MEQ in dextrose 5% water 500ml 250 ML IV PRN (11:35)
[2023-07-06] MEDS ORDERED: magnesium 4gm in 100ml NS 100 ML IV PRN (11:35)
[2023-07-06] MEDS ORDERED: magnesium hydroxide 30ml (MOM) UD suspension PO PRN (11:35)
[2023-07-06] MEDS ORDERED: sodium bicarbonate (8.4%) inj. 100 MEQ in dextrose 5% water 500ml 500 ML IV PRN (11:35)
[2023-07-06] MEDS ORDERED: HYDROmorphone inj. 0.5 MG/0.5 ML DISP.SYRIN IV PRN (11:35)
[2023-07-06] MEDS ORDERED: potassium Cl 40MEQ/1/2NS 520ml 520 ML IV PRN ×3 (11:35)
[2023-07-06] MEDS ORDERED: sodium phosphate inj. 30 MMOL in dextrose 5%-water 250 ML IV PRN (11:35)
[2023-07-06] MEDS ORDERED: mag hydrox/Alum hydrox/simeth 30ml oral suspension PO PRN (11:35)
[2023-07-06] MEDS ORDERED: potassium Cl 20 mEq SR tablet PO PRN ×4 (11:35)
--- NOTE | 2023-07-06 14:58 | NUR ---
Giving 10 unit bolus per protocol, top trimmer, Olesya, advised to keep drip at 8.8 units/hr.
[2023-07-06] MEDS: insulin regular, human U-100 3ml vial - multi-dose IV PRN ×2 (15:03→15:15)
--- NOTE | 2023-07-06 15:06 | NUR ---
Dr. Vitale ordered 5 units push now, and stat BMP.
[2023-07-06] MEDS ORDERED: piperacillin/tazo 4.5gm/100ml 100 ML IV SCH (16:00)
[2023-07-06 16:39] LABS: BASOPHILS % (AUTO) 0.3 % (0-1); EOSINOPHILS % (AUTO) 0.1 % (0-6); HEMATOCRIT 32.7 % (42.0-52.0); HEMOGLOBIN 11.1 g/dl (14.0-17.9); LYMPHOCYTES # (AUTO) 1.3 X10'3 (1.1-4.8); LYMPHOCYTES % (AUTO) 9.3 % (21-51); MEAN CORPUSCULAR HEMOGLOBIN 30.6 PG (27.0-31.0); MEAN CORPUSCULAR HGB CONC 34.1 g/dL (33.0-36.5); MEAN CORPUSCULAR VOLUME 89.9 FL (78-98); MEAN PLATELET VOLUME 7.9 FL (7.4-10.4); MONOCYTES # (AUTO) 0.8 X10'3 (0-0.9); MONOCYTES % (AUTO) 5.4 % (2-12); NEUTROPHILS # (AUTO) 12.1 X10'3 (1.8-7.7); NEUTROPHILS % (AUTO) 84.9 % (42-75); PLATELET COUNT 331 X10'3 (140-440); RED BLOOD COUNT 3.63 X10'6 (4.70-6.10); RED CELL DISTRIBUTION WIDTH 12.3 % (11.5-14.5); WHITE BLOOD COUNT 14.3 X10'3 (4.5-11.0)
[2023-07-06 16:48] LABS: ALBUMIN 3.1 G/DL (3.4-5.0); ANION GAP 10 (8-16); BLOOD UREA NITROGEN 27 MG/DL (7-18); CALCIUM 8.1 MG/DL (8.5-10.1); CHLORIDE 109 MMOL/L (99-107); CREATININE 0.93 MG/DL (0.60-1.10); GLUCOSE 144 MG/DL (70-104); POTASSIUM 3.5 MMOL/L (3.5-5.1); SODIUM 141 MMOL/L (135-145); TOTAL CARBON DIOXIDE 21.8 MMOL/L (24-32); eCRCL 124 ML/MIN; eGFR > 90 ML/MIN
--- NOTE | 2023-07-06 17:00 | NUR ---
MD Vitale ordered lower insulin drip rate from 8.8 units/hr to 3 units/hr d/t pt's blood sugar 121. "Anion gap is closed" per
--- NOTE | 2023-07-06 18:10 | NUR ---
Page sent to dr canales to review labs.
--- NOTE | 2023-07-06 18:23 | NUR ---
AT REQUEST OF PRIMARY RN, BARAK D5-1/2NS AT 151ML/HR PER PROTOCOL
[2023-07-06] MEDS: ondansetron/PF 4mg/2ml inj IV PRN (19:40)
[2023-07-06] MEDS: docusate sod 100mg capsule PO SCH (20:00)
[2023-07-06] MEDS ORDERED: K and/or MAG REPLACEMENT MC SCH ×2 (20:00)
[2023-07-06] MEDS: heparin, porcine 5000 units/ml vial SQ SCH (20:11)
[2023-07-06] MEDS: K and/or MAG REPLACEMENT MC SCH (20:13)
[2023-07-06] MEDS ORDERED: ondansetron/PF 4mg/2ml inj IM ONE (20:40)
[2023-07-06] MEDS ORDERED: LORazepam 2 mg/ml vial IM ONE (21:00)
[2023-07-06] MEDS ORDERED: LORazepam 2 mg/ml vial IV ONE (21:20)
[2023-07-06] MEDS ORDERED: dextrose 50%-water 50ml dispensing syringe IV PRN ×2 (23:35)
[2023-07-06] MEDS ORDERED: glucagon, human recombinant 1mg kit SUBCUT PRN (23:35)
[2023-07-06] MEDS ORDERED: DEXTROSE 15 GM of carb/4 tabs (each vial/BOTTLE has 4 tablets) PO PRN ×2 (23:35)
[2023-07-06] MEDS ORDERED: MESSAGE TO PHARMACY PO ONE (23:35)
--- NOTE | 2023-07-06 23:51 | NUR ---
POC glucose 270. Hyperglycemia protocol initiated. MD aware. Pharmacy aware.
--- NOTE | 2023-07-07 | NUR ---
12 units of Lantus and 1 unit of humalog given per Hyperglycemia protocol.
[2023-07-07] MEDS ORDERED: ondansetron/PF 4mg/2ml inj IV ONE (00:15)
[2023-07-07] MEDS: heparin, porcine 5000 units/ml vial SQ SCH ×3 (00:15→17:32)
--- NOTE | 2023-07-07 01:30 | NUR ---
repeat POC glucose post lantus and humalog, 232.
[2023-07-07] MEDS: potassium CL 20mEq in D5-1/2NS 1,000 ML IV PRN ×2 (02:36→02:42)
[2023-07-07] MEDS: piperacillin/tazo 4.5gm/100ml 100 ML IV SCH ×3 (03:42→19:20)
[2023-07-07] MEDS: insulin Lispro (HumaLOG) vial - multi-dose SQ SCH ×3 (04:00→19:57)
--- NOTE | 2023-07-07 04:13 | NUR ---
POC glucose 255, 3 units given per correctional dose.
[2023-07-07] MEDS: normal saline 1000ml 1,000 ML IV SCH ×5 (04:14→23:18)
[2023-07-07 07:16] LABS: BASOPHILS % (AUTO) 0.1 % (0-1); EOSINOPHILS % (AUTO) 0 % (0-6); HEMATOCRIT 35.8 % (42.0-52.0); HEMOGLOBIN 12.1 g/dl (14.0-17.9); LYMPHOCYTES # (AUTO) 2.1 X10'3 (1.1-4.8); LYMPHOCYTES % (AUTO) 8.9 % (21-51); MEAN CORPUSCULAR HEMOGLOBIN 30.9 PG (27.0-31.0); MEAN CORPUSCULAR HGB CONC 33.8 g/dL (33.0-36.5); MEAN CORPUSCULAR VOLUME 91.6 FL (78-98); MONOCYTES # (AUTO) 1.6 X10'3 (0-0.9); MONOCYTES % (AUTO) 6.9 % (2-12); NEUTROPHILS # (AUTO) 19.8 X10'3 (1.8-7.7); NEUTROPHILS % (AUTO) 84.1 % (42-75); PLATELET COUNT 312 X10'3 (140-440); RED BLOOD COUNT 3.91 X10'6 (4.70-6.10); RED CELL DISTRIBUTION WIDTH 12.3 % (11.5-14.5); WHITE BLOOD COUNT 23.5 X10'3 (4.5-11.0)
[2023-07-07] MEDS: ondansetron/PF 4mg/2ml inj IV PRN ×3 (07:32→21:00)
[2023-07-07 07:35] LABS: ALANINE AMINOTRANSFERASE 29 U/L (12-78); ALBUMIN 3.2 G/DL (3.4-5.0); ALBUMIN/GLOBULIN RATIO 1.2 (1.1-1.5); ALKALINE PHOSPHATASE 66 IU/L (46-116); ANION GAP 11 (8-16); ASPARTATE AMINO TRANSFERASE 15 U/L (10-37); BILIRUBIN,TOTAL 0.9 MG/DL (0.1-1.0); BLOOD UREA NITROGEN 24 MG/DL (7-18); BUN/CREATININE RATIO 23.8 (10.0-20.0); CALCIUM 8.2 MG/DL (8.5-10.1); CHLORIDE 107 MMOL/L (99-107); CREATININE 1.01 MG/DL (0.60-1.10); GLUCOSE 193 MG/DL (70-104); PHOSPHORUS 2.7 MG/DL (2.3-4.5); POTASSIUM 3.7 MMOL/L (3.5-5.1); SODIUM 140 MMOL/L (135-145); TOTAL CARBON DIOXIDE 21.6 MMOL/L (24-32); TOTAL PROTEIN 5.9 G/DL (6.4-8.2); eCRCL 114 ML/MIN; eGFR 85 ML/MIN
[2023-07-07] MEDS: docusate sod 100mg capsule PO SCH ×2 (09:04→20:00)
[2023-07-07] MEDS ORDERED: INSU100I31 SQ (09:17)
--- NOTE | 2023-07-07 09:49 | NUR ---
Spoke w/ Dr North at bedside regarding insulin gtt was stopped by shift coordinator RN, pt still vomiting, NPO order still active, no diet order. Orders for reglan 10 mg q 6 prn N/V, rpt bmp at 1330 today to make sure pt doesn't go back into DKA. Orders to keep pt NPO with accuchecks d/t active vomiting.
[2023-07-07] MEDS: metoclopramide 5 mg/ml inj IV PRN ×2 (09:57→17:03)
[2023-07-07] MEDS: K and/or MAG REPLACEMENT MC SCH ×2 (10:51→20:01)
--- NOTE | 2023-07-07 11:02 | NUR ---
recd report from [facility]
[2023-07-07 11:11] VITALS: BP 156/100; PULSE 75; RESP 15; TEMP 99.8; O2SAT 98
--- NOTE | 2023-07-07 11:49 | NUR ---
notified dr canales re: bp 156/100. ok to restart home bp med, decrease iv fluids to 100mls/hr, start clear liq diet
[2023-07-07] MEDS: lisinopril 10 MG tablet PO SCH (12:49)
[2023-07-07 15:00] VITALS: BP 126/80; PULSE 83; RESP 12; TEMP 98.2; O2SAT 99
[2023-07-07 15:34] LABS: ALBUMIN 3.1 G/DL (3.4-5.0); ANION GAP 14 (8-16); BLOOD UREA NITROGEN 20 MG/DL (7-18); BUN/CREATININE RATIO 23.5 (10.0-20.0); CALCIUM 8.3 MG/DL (8.5-10.1); CHLORIDE 104 MMOL/L (99-107); CREATININE 0.85 MG/DL (0.60-1.10); GLUCOSE 169 MG/DL (70-104); POTASSIUM 3.4 MMOL/L (3.5-5.1); SODIUM 140 MMOL/L (135-145); TOTAL CARBON DIOXIDE 22.5 MMOL/L (24-32); eCRCL 136 ML/MIN; eGFR > 90 ML/MIN
[2023-07-07 18:00] VITALS: BP 126/85; PULSE 90; RESP 14; TEMP 99.5; O2SAT 99
[2023-07-07] MEDS ORDERED: insulin glargine (Lantus) pen - multi-dose SQ SCH (21:00)
[2023-07-07 22:43] VITALS: BP 124/69; PULSE 77; RESP 18; TEMP 97.8; O2SAT 96
[2023-07-08] MEDS: metoclopramide 5 mg/ml inj IV PRN (01:35)
[2023-07-08 03:04] VITALS: BP 114/72; PULSE 91; RESP 20; TEMP 97.6; O2SAT 98
--- NOTE | 2023-07-08 03:22 | NUR ---
Problems reprioritized. Patient report given, questions answered & plan of care reviewed with samuel nick.
[2023-07-08] MEDS ORDERED: proCHLORperazine 10 MG/2 ml inj IV ONE (03:45)
[2023-07-08] MEDS: piperacillin/tazo 4.5gm/100ml 100 ML IV SCH (04:09)
[2023-07-08 07:00] VITALS: BP 134/84; PULSE 80; RESP 22; TEMP 97.6; O2SAT 97
--- NOTE | 2023-07-08 07:08 | NUR ---
Patient in room PCU 3028. I have received report from EVERTON Ledbetter and had the opportunity to ask questions and assume patient care. Patient asleep in bed and in no acute distress.
[2023-07-08 07:40] LABS: BASOPHILS % (AUTO) 0.2 % (0-1); EOSINOPHILS % (AUTO) 0 % (0-6); HEMATOCRIT 33.2 % (42.0-52.0); HEMOGLOBIN 11.5 g/dl (14.0-17.9); LYMPHOCYTES # (AUTO) 1.9 X10'3 (1.1-4.8); LYMPHOCYTES % (AUTO) 14.5 % (21-51); MEAN CORPUSCULAR HEMOGLOBIN 30.8 PG (27.0-31.0); MEAN CORPUSCULAR HGB CONC 34.6 g/dL (33.0-36.5); MEAN CORPUSCULAR VOLUME 89.2 FL (78-98); MEAN PLATELET VOLUME 7.9 FL (7.4-10.4); MONOCYTES % (AUTO) 7.5 % (2-12); NEUTROPHILS # (AUTO) 9.9 X10'3 (1.8-7.7); NEUTROPHILS % (AUTO) 77.8 % (42-75); PLATELET COUNT 279 X10'3 (140-440); RED BLOOD COUNT 3.73 X10'6 (4.70-6.10); RED CELL DISTRIBUTION WIDTH 12.1 % (11.5-14.5); WHITE BLOOD COUNT 12.8 X10'3 (4.5-11.0)
[2023-07-08 07:50] LABS: ALANINE AMINOTRANSFERASE 27 U/L (12-78); ALBUMIN 2.8 G/DL (3.4-5.0); ALKALINE PHOSPHATASE 63 IU/L (46-116); ANION GAP 8 (8-16); ASPARTATE AMINO TRANSFERASE 14 U/L (10-37); BLOOD UREA NITROGEN 21 MG/DL (7-18); BUN/CREATININE RATIO 23.9 (10.0-20.0); CALCIUM 8.4 MG/DL (8.5-10.1); CHLORIDE 102 MMOL/L (99-107); CREATININE 0.88 MG/DL (0.60-1.10); GLUCOSE 188 MG/DL (70-104); MAGNESIUM 1.9 MG/DL (1.5-2.4); POTASSIUM 3.5 MMOL/L (3.5-5.1); SODIUM 136 MMOL/L (135-145); TOTAL CARBON DIOXIDE 25.8 MMOL/L (24-32); TOTAL PROTEIN 5.5 G/DL (6.4-8.2); eCRCL 131 ML/MIN; eGFR > 90 ML/MIN
[2023-07-08 08:00] VITALS: RESP 22; O2SAT 97
[2023-07-08] MEDS: K and/or MAG REPLACEMENT MC SCH (08:00)
[2023-07-08] MEDS: docusate sod 100mg capsule PO SCH (08:16)
[2023-07-08 08:17] VITALS: BP_SYST 134; PULSE 80
[2023-07-08] MEDS: heparin, porcine 5000 units/ml vial SQ SCH ×2 (08:17)
[2023-07-08] MEDS: lisinopril 10 MG tablet PO SCH (08:17)
[2023-07-08] MEDS: insulin Lispro (HumaLOG) vial - multi-dose SQ SCH (09:12)
--- NOTE | 2023-07-08 10:08 | NUR ---
ORDERS TO ADVANCE DIET TO CARB CONTROLLED DIET PUT IN PER DR. HAINES.
[2023-07-08] MEDS ORDERED: PROC-8 PO (11:29)
[2023-07-08] MEDS ORDERED: AMOX-580 PO (11:29)
--- NOTE | 2023-07-08 12:23 | NUR ---
CONTACTED PT'S GRANDMOTHER, ESTRELLA, SHE WILL FIND A RIDE HOME FOR HOME, [place] AT THIS TIME, ASSISTING RN WITH PT CARE
--- NOTE | 2023-07-08 12:36 | NUR ---
PT IS GETTING DRESSED, IV X2 DC'D, CANNULA INTACT, FAMILY WILL BE HERE AT 1500 TO TAKE PT HOME, PT TO WAIT IN LOBBY
--- NOTE | 2023-07-08 12:45 | NUR ---
Patient stable for discharge per MD orders. New prescriptions e-scripted to pharmacy. Belongings collected and sent with patient. Discharge instructions reviewed with patient by AICHA Silva. PIV discontinued and cannula intact. exhibit designer discontinued. Patient wheeled down to lobby and will wait for ride to pick him up down there.
--- NOTE | 2023-07-08 13:04 | NUR ---
Per EMR pt with T1DM and DKA on admit, current A1c 10.0%. Pt discharged prior to RD being available for bedside visit. Written DM education with RD contact information mailed to patient's address found in EMR. Addendum: 07/08/23 at [address] Amended: Links added.
== END 2023-07-08 12:45 | disposition home or self-care (01) | DRG 420 ==
LOC: ER 07:38 → ED HOLD 11:38 → PCU 3S 07-07 11:15
PROVIDERS: ADMIT Family Medicine; ATTEND Family Medicine
DX: E10.10 Type 1 diabetes mellitus with ketoacidosis without coma (principal); I50.9 Heart failure, unspecified; E78.00 Pure hypercholesterolemia, unspecified; K52.9 Noninfective gastroenteritis and colitis, unspecified; I25.10 Atherosclerotic heart disease of native coronary artery without angina pectoris; I25.2 Old myocardial infarction; J44.9 Chronic obstructive pulmonary disease, unspecified; Z79.4 Long term (current) use of insulin; Z86.73 Personal history of transient ischemic attack (TIA), and cerebral infarction without residual deficits; Z88.2 Allergy status to sulfonamides; Z95.1 Presence of aortocoronary bypass graft; Z86.74 Personal history of sudden cardiac arrest
CPT/HCPCS: 36415; 36600; 74177; 80048; 80053; 81001; 82009; 82803; 82948; 83036; 83690; 83735; 84100; 85018; 85025; 87081; 99285; G0378; J0780; J1170; J1644; J1815; J2060; J2405; J2543; J2765; J3230; J3480; J3490; J7030; Q9967

== ENCOUNTER 2023-08-02 14:31 | Inpatient (IN) | payer MEDICAID ==
[~2023-08-02] VITALS: Ht 182.9 cm; Wt 81.0 kg
[~2023-08-02 14:31] MED LIST changes: +AMOX-580 PO; -ONDA4TAB12 PO; +PROC-8 PO
[2023-08-02 15:20] LABS: BASOPHILS # (AUTO) 0.1 X10'3 (0-0.2); BASOPHILS % (AUTO) 0.5 % (0-1); EOSINOPHILS # (AUTO) 0.1 X10'3 (0-0.9); EOSINOPHILS % (AUTO) 0.5 % (0-6); HEMATOCRIT 41.7 % (42.0-52.0); HEMOGLOBIN 14.3 g/dl (14.0-17.9); LYMPHOCYTES # (AUTO) 1.4 X10'3 (1.1-4.8); LYMPHOCYTES % (AUTO) 10.8 % (21-51); MEAN CORPUSCULAR HEMOGLOBIN 30.5 PG (27.0-31.0); MEAN CORPUSCULAR HGB CONC 34.4 g/dL (33.0-36.5); MEAN CORPUSCULAR VOLUME 88.8 FL (78-98); MEAN PLATELET VOLUME 7.8 FL (7.4-10.4); MONOCYTES # (AUTO) 0.8 X10'3 (0-0.9); MONOCYTES % (AUTO) 5.7 % (2-12); NEUTROPHILS # (AUTO) 10.8 X10'3 (1.8-7.7); NEUTROPHILS % (AUTO) 82.5 % (42-75); PLATELET COUNT 353 X10'3 (140-440); RED CELL DISTRIBUTION WIDTH 12.3 % (11.5-14.5); WHITE BLOOD COUNT 13.1 X10'3 (4.5-11.0)
[2023-08-02] MEDS ORDERED: famotidine/PF 10 mg/ml inj IV ONE (15:20)
[2023-08-02] MEDS ORDERED: diphenhydrAMINE 50 mg/ml inj IV ONE (15:20)
[2023-08-02] MEDS ORDERED: normal saline 1000ML IV soln IVB ONE (15:20)
[2023-08-02] MEDS ORDERED: proCHLORperazine 10 MG/2 ml inj IV ONE (15:20)
[2023-08-02 15:37] LABS: ALANINE AMINOTRANSFERASE 48 U/L (12-78); ALBUMIN 3.9 G/DL (3.4-5.0); ALBUMIN/GLOBULIN RATIO 1.2 (1.1-1.5); ALKALINE PHOSPHATASE 66 IU/L (46-116); ANION GAP 10 (8-16); ASPARTATE AMINO TRANSFERASE 23 U/L (10-37); BILIRUBIN,TOTAL 0.9 MG/DL (0.1-1.0); BLOOD UREA NITROGEN 17 MG/DL (7-18); BUN/CREATININE RATIO 20.5 (10.0-20.0); CALCIUM 9.5 MG/DL (8.5-10.1); CHLORIDE 102 MMOL/L (99-107); CREATININE 0.83 MG/DL (0.60-1.10); GLUCOSE 128 MG/DL (70-104); LIPASE 19 U/L (16-77); POTASSIUM 3.1 MMOL/L (3.5-5.1); SODIUM 135 MMOL/L (135-145); TOTAL PROTEIN 7.1 G/DL (6.4-8.2); eCRCL 143 ML/MIN; eGFR > 90 ML/MIN
[2023-08-02] MEDS ORDERED: potassium Cl 20 mEq SR tablet PO ONE (16:00)
[2023-08-02] MEDS ORDERED: LORazepam 2 mg/ml vial IV ONE (17:10)
[2023-08-02] MEDS ORDERED: magnesium 4gm in 100ml NS 100 ML IV PRN (19:00)
[2023-08-02] MEDS ORDERED: magnesium Cl slow-release 64mg tablet PO PRN (19:00)
[2023-08-02] MEDS ORDERED: potassium Cl 40MEQ/1/2NS 520ml 520 ML IV PRN (19:00)
[2023-08-02] MEDS ORDERED: potassium Cl 20 mEq SR tablet PO PRN ×2 (19:00)
[2023-08-02] MEDS ORDERED: magnesium 2GM in 50ml NS 50 ML IV PRN (19:00)
[2023-08-02] MEDS ORDERED: acetaminophen 325mg tablet PO PRN (19:00)
[2023-08-02] MEDS ORDERED: IOHEXOL 12MG/ML oral solution 500 ML BOTTLE PO ONE (19:50)
[2023-08-02] MEDS ORDERED: iohexol 300mg/ml 100ml inj. ONE (20:00)
[2023-08-02 20:56] LABS: BILIRUBIN,URINE NEGATIVE (Neg); CLARITY,URINE SLIGHTLY CLOUDY (Clear); COLOR,URINE YELLOW (Yellow); GLUCOSE, URINE 250 mg/dl (Neg); KETONES,URINE 40 mg/dl (Neg); LEUKOCYTE ESTERASE ,URINE NEGATIVE (Neg); NITRITES, URINE NEGATIVE (Neg); OCCULT BLOOD,URINE TRACE-INTACT (Neg); PROTEIN,URINE 100 mg/dl (Neg); UROBILINOGEN,URINE 0.2 E.U/dL (0.2-1.0)
[2023-08-02 21:00] LABS: UA COLLECTION TYPE URINAL
[2023-08-02 21:05] LABS: BACTERIA,URINE FEW /HPF (Neg); SQUAMOUS EPITHELIAL CELL,UR FEW /LPF (FEW); WBC,URINE 0-4 /HPF (0-4)
[2023-08-02 21:06] LABS: FINE GRANULAR CAST 0-3 /LPF (NEGATIVE); MUCUS STRANDS FEW /LPF (Neg); TRANSITIONAL EPI CELLS,URINE FEW /HPF
[2023-08-02 21:19] LABS: URINE AMPHETAMINE SCREEN POSITIVE (Neg); URINE BARBITUATE SCREEN NEGATIVE (Neg); URINE BENZODIAZEPINES SCREEN NEGATIVE (Neg); URINE CANNABINOID SCREEN POSITIVE (Neg); URINE COCAINE SCREEN NEGATIVE (Neg); URINE METHADONE SCREEN NEGATIVE (Neg); URINE OPIATE SCREEN NEGATIVE (Neg); URINE PHENCYCLIDINE SCREEN NEGATIVE (Neg)
[2023-08-02] MEDS: metroNIDAZOLE-Flagyl 500mg/NS 100 ML IV SCH (21:22)
[2023-08-02] MEDS: normal saline 1000ml 1,000 ML IV SCH (21:35)
[2023-08-02] MEDS: K and/or MAG REPLACEMENT MC SCH (22:15)
[2023-08-02] MEDS: ciprofloxacin lact 400MG/200ML 200 ML IV SCH (22:25)
[2023-08-02 23:00] LABS: ALANINE AMINOTRANSFERASE 39 U/L (12-78); ALBUMIN 3.2 G/DL (3.4-5.0); ALBUMIN/GLOBULIN RATIO 1.1 (1.1-1.5); ALKALINE PHOSPHATASE 58 IU/L (46-116); ANION GAP 12 (8-16); ASPARTATE AMINO TRANSFERASE 18 U/L (10-37); BILIRUBIN,TOTAL 0.8 MG/DL (0.1-1.0); BLOOD UREA NITROGEN 15 MG/DL (7-18); BUN/CREATININE RATIO 21.4 (10.0-20.0); CALCIUM 7.8 MG/DL (8.5-10.1); CHLORIDE 100 MMOL/L (99-107); GLUCOSE 232 MG/DL (70-104); MAGNESIUM 1.5 MG/DL (1.5-2.4); POTASSIUM 4.4 MMOL/L (3.5-5.1); SODIUM 132 MMOL/L (135-145); TOTAL CARBON DIOXIDE 20.4 MMOL/L (24-32); eCRCL 170 ML/MIN; eGFR > 90 ML/MIN
[2023-08-03] MEDS ORDERED: DEXTROSE 15 GM of carb/4 tabs (each vial/BOTTLE has 4 tablets) PO PRN ×2 (01:40)
[2023-08-03] MEDS ORDERED: glucagon, human recombinant 1mg kit SUBCUT PRN (01:40)
[2023-08-03] MEDS ORDERED: dextrose 50%-water 50ml dispensing syringe IV PRN ×2 (01:40)
[2023-08-03] MEDS ORDERED: MESSAGE TO PHARMACY PO ONE (01:40)
[2023-08-03] MEDS: normal saline 1000ml 1,000 ML IV SCH ×2 (05:01→15:00)
[2023-08-03] MEDS ORDERED: magnesium 2GM in 50ml NS 50 ML IV ONE (06:30)
[2023-08-03] MEDS ORDERED: LORazepam 2 mg/ml vial IV ONE (06:30)
[2023-08-03 07:40] VITALS: BP 126/71; PULSE 86; RESP 15; TEMP 97.8; O2SAT 99
[2023-08-03] MEDS: K and/or MAG REPLACEMENT MC SCH ×2 (08:00→19:52)
[2023-08-03] MEDS: metroNIDAZOLE-Flagyl 500mg/NS 100 ML IV SCH ×2 (09:34→21:58)
[2023-08-03] MEDS: ciprofloxacin lact 400MG/200ML 200 ML IV SCH ×2 (09:34→21:11)
[2023-08-03 10:06] LABS: BASOPHILS % (AUTO) 0.3 % (0-1); EOSINOPHILS % (AUTO) 0.1 % (0-6); HEMATOCRIT 37.4 % (42.0-52.0); HEMOGLOBIN 12.7 g/dl (14.0-17.9); LYMPHOCYTES # (AUTO) 1.6 X10'3 (1.1-4.8); LYMPHOCYTES % (AUTO) 14.1 % (21-51); MEAN CORPUSCULAR HEMOGLOBIN 30.3 PG (27.0-31.0); MEAN CORPUSCULAR HGB CONC 33.9 g/dL (33.0-36.5); MEAN CORPUSCULAR VOLUME 89.4 FL (78-98); MONOCYTES # (AUTO) 0.7 X10'3 (0-0.9); MONOCYTES % (AUTO) 6.5 % (2-12); NEUTROPHILS # (AUTO) 9.2 X10'3 (1.8-7.7); PLATELET COUNT 324 X10'3 (140-440); RED BLOOD COUNT 4.18 X10'6 (4.70-6.10); RED CELL DISTRIBUTION WIDTH 12.8 % (11.5-14.5); WHITE BLOOD COUNT 11.6 X10'3 (4.5-11.0)
[2023-08-03 10:13] LABS: ALBUMIN 3.1 G/DL (3.4-5.0); ANION GAP 8 (8-16); BLOOD UREA NITROGEN 17 MG/DL (7-18); BUN/CREATININE RATIO 23.6 (10.0-20.0); CALCIUM 8.4 MG/DL (8.5-10.1); CHLORIDE 103 MMOL/L (99-107); CREATININE 0.72 MG/DL (0.60-1.10); GLUCOSE 235 MG/DL (70-104); MAGNESIUM 2.1 MG/DL (1.5-2.4); POTASSIUM 3.9 MMOL/L (3.5-5.1); SODIUM 134 MMOL/L (135-145); eCRCL 165 ML/MIN; eGFR > 90 ML/MIN
[2023-08-03 11:00] VITALS: BP 134/65; PULSE 111; RESP 24; TEMP 98; O2SAT 98
[2023-08-03] MEDS: insulin Lispro (HumaLOG) vial - multi-dose SQ SCH (14:22)
[2023-08-03 15:00] VITALS: BP 133/86; PULSE 84; RESP 16; TEMP 97.9; O2SAT 98
[2023-08-03] MEDS ORDERED: LISI10TA27 PO (15:47)
[2023-08-03 18:00] VITALS: BP 122/76; PULSE 80; RESP 14; TEMP 98.1; O2SAT 99
[2023-08-03 20:00] VITALS: RESP 17; O2SAT 98
[2023-08-03] MEDS: insulin glargine (Lantus) pen - multi-dose SQ SCH (21:18)
[2023-08-03 22:00] VITALS: BP 132/77; PULSE 65; RESP 16; TEMP 98.1; O2SAT 99
[2023-08-04] VITALS (7 sets, daily range): BP systolic 130–150; BP diastolic 73–103; PULSE 64–87; RESP 14–19; TEMP 98–98.9; O2SAT 96–99
[2023-08-04] MEDS: ondansetron/PF 4mg/2ml inj IV PRN ×2 (03:18→09:36)
[2023-08-04] MEDS ORDERED: LORazepam 2 mg/ml vial IV ONE (06:55)
[2023-08-04 07:02] LABS: ALBUMIN 2.8 G/DL (3.4-5.0); ANION GAP 8 (8-16); BLOOD UREA NITROGEN 15 MG/DL (7-18); CALCIUM 8.2 MG/DL (8.5-10.1); CHLORIDE 103 MMOL/L (99-107); CREATININE 0.75 MG/DL (0.60-1.10); GLUCOSE 103 MG/DL (70-104); MAGNESIUM 1.7 MG/DL (1.5-2.4); POTASSIUM 3.8 MMOL/L (3.5-5.1); SODIUM 136 MMOL/L (135-145); TOTAL CARBON DIOXIDE 24.6 MMOL/L (24-32); eCRCL 154 ML/MIN; eGFR > 90 ML/MIN
[2023-08-04] MEDS: proCHLORperazine 10 MG/2 ml inj IV PRN (07:18)
[2023-08-04 07:20] LABS: BASOPHILS # (AUTO) 0.1 X10'3 (0-0.2); BASOPHILS % (AUTO) 0.6 % (0-1); EOSINOPHILS # (AUTO) 0.3 X10'3 (0-0.9); EOSINOPHILS % (AUTO) 2.9 % (0-6); HEMATOCRIT 37.2 % (42.0-52.0); HEMOGLOBIN 12.7 g/dl (14.0-17.9); LYMPHOCYTES # (AUTO) 3.7 X10'3 (1.1-4.8); LYMPHOCYTES % (AUTO) 40.3 % (21-51); MEAN CORPUSCULAR HEMOGLOBIN 31.1 PG (27.0-31.0); MEAN CORPUSCULAR HGB CONC 34.2 g/dL (33.0-36.5); MEAN PLATELET VOLUME 8.5 FL (7.4-10.4); MONOCYTES # (AUTO) 0.8 X10'3 (0-0.9); MONOCYTES % (AUTO) 8.3 % (2-12); NEUTROPHILS # (AUTO) 4.4 X10'3 (1.8-7.7); NEUTROPHILS % (AUTO) 47.9 % (42-75); PLATELET COUNT 278 X10'3 (140-440); RED BLOOD COUNT 4.09 X10'6 (4.70-6.10); RED CELL DISTRIBUTION WIDTH 12.4 % (11.5-14.5); WHITE BLOOD COUNT 9.2 X10'3 (4.5-11.0)
[2023-08-04] MEDS: metroNIDAZOLE-Flagyl 500mg/NS 100 ML IV SCH ×2 (07:28→19:04)
[2023-08-04] MEDS ORDERED: pantoprazole 40mg Tablet.DR PO SCH (07:30)
[2023-08-04] MEDS ORDERED: pantoprazole 40 MG vial IV SCH (08:00)
[2023-08-04] MEDS: K and/or MAG REPLACEMENT MC SCH ×2 (08:00→20:00)
[2023-08-04] MEDS: ciprofloxacin lact 400MG/200ML 200 ML IV SCH ×2 (09:27→20:56)
[2023-08-04] MEDS: normal saline 1000ml 1,000 ML IV SCH ×3 (09:27→23:49)
[2023-08-04] MEDS ORDERED: LORazepam 2 mg/ml vial IV PRN (10:30)
[2023-08-04] MEDS ORDERED: polyethylene glycol 3350 17gm powd pack PO SCH (10:45)
[2023-08-04] MEDS ORDERED: bisacodyl 10mg suppository rectal RC PRN (10:45)
[2023-08-04] MEDS: pantoprazole 40MG/NS 100ML BAG 100 ML IV SCH (12:22)
[2023-08-04] MEDS: insulin Lispro (HumaLOG) vial - multi-dose SQ SCH (13:14)
[2023-08-04] MEDS: insulin glargine (Lantus) pen - multi-dose SQ SCH (21:41)
[2023-08-05 02:00] VITALS: BP 131/90; PULSE 87; RESP 18; TEMP 98.1; O2SAT 97
[2023-08-05] MEDS: ondansetron/PF 4mg/2ml inj IV PRN (02:04)
[2023-08-05] MEDS: proCHLORperazine 10 MG/2 ml inj IV PRN (04:40)
[2023-08-05 06:00] VITALS: BP 158/100; PULSE 76; RESP 14; TEMP 98.2; O2SAT 97
[2023-08-05 07:12] LABS: BASOPHILS # (AUTO) 0.1 X10'3 (0-0.2); BASOPHILS % (AUTO) 0.8 % (0-1); EOSINOPHILS % (AUTO) 0.6 % (0-6); HEMATOCRIT 38.1 % (42.0-52.0); HEMOGLOBIN 13.1 g/dl (14.0-17.9); LYMPHOCYTES # (AUTO) 1.8 X10'3 (1.1-4.8); LYMPHOCYTES % (AUTO) 22.9 % (21-51); MEAN CORPUSCULAR HEMOGLOBIN 30.5 PG (27.0-31.0); MEAN CORPUSCULAR HGB CONC 34.4 g/dL (33.0-36.5); MEAN CORPUSCULAR VOLUME 88.6 FL (78-98); MEAN PLATELET VOLUME 8.3 FL (7.4-10.4); MONOCYTES # (AUTO) 0.6 X10'3 (0-0.9); MONOCYTES % (AUTO) 7.2 % (2-12); NEUTROPHILS # (AUTO) 5.5 X10'3 (1.8-7.7); NEUTROPHILS % (AUTO) 68.5 % (42-75); PLATELET COUNT 254 X10'3 (140-440); RED CELL DISTRIBUTION WIDTH 12.4 % (11.5-14.5)
[2023-08-05 07:46] LABS: ALBUMIN 2.6 G/DL (3.4-5.0); ANION GAP 9 (8-16); BLOOD UREA NITROGEN 12 MG/DL (7-18); BUN/CREATININE RATIO 17.1 (10.0-20.0); CHLORIDE 100 MMOL/L (99-107); GLUCOSE 108 MG/DL (70-104); MAGNESIUM 1.5 MG/DL (1.5-2.4); POTASSIUM 3.5 MMOL/L (3.5-5.1); SODIUM 133 MMOL/L (135-145); TOTAL CARBON DIOXIDE 24.1 MMOL/L (24-32); eCRCL 165 ML/MIN; eGFR > 90 ML/MIN
[2023-08-05] MEDS: K and/or MAG REPLACEMENT MC SCH (08:00)
[2023-08-05] MEDS: pantoprazole 40MG/NS 100ML BAG 100 ML IV SCH (09:08)
[2023-08-05] MEDS: metroNIDAZOLE-Flagyl 500mg/NS 100 ML IV SCH (09:10)
[2023-08-05] MEDS: ciprofloxacin lact 400MG/200ML 200 ML IV SCH (09:11)
[2023-08-05] MEDS ORDERED: OMEP40CA21 PO (11:57)
[2023-08-06] MEDS ORDERED: LORazepam 1 MG tablet PO PRN (10:30)
[2023-08-06] MEDS ORDERED: LORazepam 2 mg/ml vial IV PRN (10:30)
[2023-08-08] MEDS ORDERED: LORazepam 2 mg/ml vial IV PRN (10:30)
[2023-08-08] MEDS ORDERED: LORazepam 1 MG tablet PO PRN (10:30)
== END 2023-08-05 16:33 | disposition home or self-care (01) | DRG 425 ==
LOC: ER 14:31 → UNDOADMIN 19:02 → ED HOLD 19:02 → PCU 3S 08-03 07:27
PROVIDERS: ADMIT Internal Medicine; ATTEND Internal Medicine
PROC: BW211ZZ Computerized Tomography (CT Scan) of Abdomen and Pelvis using Low Osmolar Contrast (ICD-10-PCS; principal; 2023-08-03)
DX: E87.6 Hypokalemia (principal); D72.829 Elevated white blood cell count, unspecified; F15.13 Other stimulant abuse with withdrawal; E11.9 Type 2 diabetes mellitus without complications; R94.31 Abnormal electrocardiogram [ECG] [EKG]; Z88.2 Allergy status to sulfonamides; Z79.899 Other long term (current) drug therapy; Z88.8 Allergy status to other drugs, medicaments and biological substances; Z79.4 Long term (current) use of insulin
CPT/HCPCS: 36415; 74177; 80048; 80053; 80305; 81001; 82948; 83690; 83735; 85025; 87081; 99285; C9113; G0378; J0744; J0780; J1200; J1815; J2060; J2405; J3475; J3490; J7030; Q9967

== ENCOUNTER 2023-09-04 12:07 | Inpatient (IN) | payer MEDICAID ==
[~2023-09-04] VITALS: Ht 182.9 cm; Wt 81.8 kg
[~2023-09-04 12:07] MED LIST changes: -AMOX-580 PO; +LISI10TA27 PO; +OMEP40CA21 PO; -PROC-8 PO
[2023-09-04] MEDS ORDERED: ringers solution, lacted 1,000 ML IV ONE (12:35)
[2023-09-04] MEDS ORDERED: metoclopramide 5 mg/ml inj IV ONE (12:35)
[2023-09-04] MEDS ORDERED: diphenhydrAMINE 50 mg/ml inj IV ONE (12:35)
[2023-09-04 13:53] LABS: BILIRUBIN,URINE NEGATIVE (Neg); CLARITY,URINE CLEAR (Clear); COLOR,URINE YELLOW (Yellow); GLUCOSE, URINE >=1000 mg/dl (Neg); KETONES,URINE >=80 mg/dl (Neg); LEUKOCYTE ESTERASE ,URINE NEGATIVE (Neg); NITRITES, URINE NEGATIVE (Neg); OCCULT BLOOD,URINE TRACE-INTACT (Neg); PH,URINE 5.5 (4.8-8.0); PROTEIN,URINE 100 mg/dl (Neg); UROBILINOGEN,URINE 0.2 E.U/dL (0.2-1.0)
[2023-09-04 13:56] LABS: BASOPHILS # (AUTO) 0.1 X10'3 (0-0.2); BASOPHILS % (AUTO) 0.5 % (0-1); EOSINOPHILS % (AUTO) 0 % (0-6); HEMATOCRIT 44.8 % (42.0-52.0); HEMOGLOBIN 14.6 g/dl (14.0-17.9); LYMPHOCYTES # (AUTO) 1.4 X10'3 (1.1-4.8); LYMPHOCYTES % (AUTO) 6.3 % (21-51); MEAN CORPUSCULAR HEMOGLOBIN 30.1 PG (27.0-31.0); MEAN CORPUSCULAR HGB CONC 32.6 g/dL (33.0-36.5); MEAN CORPUSCULAR VOLUME 92.2 FL (78-98); MEAN PLATELET VOLUME 8.8 FL (7.4-10.4); MONOCYTES # (AUTO) 0.6 X10'3 (0-0.9); MONOCYTES % (AUTO) 2.7 % (2-12); NEUTROPHILS # (AUTO) 19.8 X10'3 (1.8-7.7); NEUTROPHILS % (AUTO) 90.5 % (42-75); PLATELET COUNT 282 X10'3 (140-440); RED BLOOD COUNT 4.86 X10'6 (4.70-6.10); RED CELL DISTRIBUTION WIDTH 12.2 % (11.5-14.5); WHITE BLOOD COUNT 21.9 X10'3 (4.5-11.0)
[2023-09-04 14:02] LABS: UA COLLECTION TYPE VOIDED
[2023-09-04 14:03] LABS: ALANINE AMINOTRANSFERASE 29 U/L (12-78); ALBUMIN 3.9 G/DL (3.4-5.0); ALBUMIN/GLOBULIN RATIO 0.9 (1.1-1.5); ALKALINE PHOSPHATASE 84 IU/L (46-116); ANION GAP 23 (8-16); ASPARTATE AMINO TRANSFERASE 16 U/L (10-37); BLOOD UREA NITROGEN 32 MG/DL (7-18); BUN/CREATININE RATIO 27.4 (10.0-20.0); CALCIUM 9.8 MG/DL (8.5-10.1); CHLORIDE 93 MMOL/L (99-107); CREATININE 1.17 MG/DL (0.60-1.10); LIPASE 25 U/L (16-77); POTASSIUM 5.2 MMOL/L (3.5-5.1); SODIUM 130 MMOL/L (135-145); TOTAL PROTEIN 8.2 G/DL (6.4-8.2); eCRCL 98 ML/MIN; eGFR 71 ML/MIN
[2023-09-04 14:04] LABS: BACTERIA,URINE NONE SEEN /HPF (Neg); MUCUS STRANDS NONE SEEN /LPF (Neg); RBC,URINE NONE SEEN /HPF (0-2); SQUAMOUS EPITHELIAL CELL,UR FEW /LPF (FEW); WBC,URINE 0-4 /HPF (0-4)
[2023-09-04 14:08] LABS: URINE AMPHETAMINE SCREEN POSITIVE (Neg); URINE BARBITUATE SCREEN NEGATIVE (Neg); URINE BENZODIAZEPINES SCREEN NEGATIVE (Neg); URINE CANNABINOID SCREEN POSITIVE (Neg); URINE COCAINE SCREEN NEGATIVE (Neg); URINE METHADONE SCREEN NEGATIVE (Neg); URINE OPIATE SCREEN NEGATIVE (Neg); URINE PHENCYCLIDINE SCREEN NEGATIVE (Neg)
[2023-09-04 14:14] LABS: GLUCOSE 517 MG/DL (70-104); TOTAL CARBON DIOXIDE 13.8 MMOL/L (24-32)
[2023-09-04] MEDS ORDERED: normal saline 1000ml 1,000 ML IV ONE (14:20)
[2023-09-04] MEDS ORDERED: sodium bicarbonate (8.4%) inj. 100 MEQ in dextrose 5% water 500ml 500 ML IV PRN ×2 (14:25→15:25)
[2023-09-04] MEDS ORDERED: potassium Cl 20 mEq SR tablet PO PRN ×4 (14:25→15:20)
[2023-09-04] MEDS ORDERED: Insulin Reg/NS 100units/100mL 100 ML IV SCH ×2 (14:25→15:25)
[2023-09-04] MEDS ORDERED: sodium phosphate inj. 15 MMOL in dextrose 5%-water 250 ML IV PRN ×2 (14:25→15:25)
[2023-09-04] MEDS ORDERED: Neutra Phos packet PO PRN ×2 (14:25→15:25)
[2023-09-04] MEDS ORDERED: sodium phosphate inj. 30 MMOL in dextrose 5%-water 250 ML IV PRN ×2 (14:25→15:25)
[2023-09-04] MEDS ORDERED: potassium Cl 40MEQ/1/2NS 520ml 520 ML IV PRN ×3 (14:25→15:20)
[2023-09-04] MEDS ORDERED: insulin regular, human U-100 3ml vial - multi-dose IV PRN ×2 (14:25→15:25)
[2023-09-04] MEDS ORDERED: sodium bicarbonate (8.4%) inj. 50 MEQ in dextrose 5% water 500ml 250 ML IV PRN ×2 (14:25→15:25)
[2023-09-04] MEDS ORDERED: potassium CL 20mEq in D5-1/2NS 1,000 ML IV PRN ×2 (14:25→15:25)
[2023-09-04] MEDS ORDERED: CEPH250T PO (14:38)
[2023-09-04] MEDS ORDERED: ondansetron/PF 4mg/2ml inj IV ONE ×2 (14:40→20:55)
[2023-09-04 14:59] LABS: ABG BASE EXCESS -16.4 mmol/L (-2.0-2.0); ABG PCO2 (T) 25.8 mmHg (35.0-48.0); ABG PH (T) 7.205 (7.340-7.440); ABG PO2 (T) 100.5 mmHg (75.0-100.0); ALLEN'S TEST POSITIVE; FCOHb 0.3 % (0.0-3.9); FMetHb 0.5 % (0.0-1.5); FO2Hb 96.2 % (94-97); MODE ROOM AIR; PATIENT TEMPERATURE 36.5; TOTAL HEMOGLOBIN 13.9 G/dl (14.0-17.9)
[2023-09-04 15:11] LABS: ALBUMIN 3.5 G/DL (3.4-5.0); ANION GAP 22 (8-16); BLOOD UREA NITROGEN 33 MG/DL (7-18); BUN/CREATININE RATIO 28.4 (10.0-20.0); CALCIUM 9.4 MG/DL (8.5-10.1); CHLORIDE 95 MMOL/L (99-107); CREATININE 1.16 MG/DL (0.60-1.10); PHOSPHORUS 4.9 MG/DL (2.3-4.5); POTASSIUM 5.8 MMOL/L (3.5-5.1); SODIUM 128 MMOL/L (135-145); eCRCL 98 ML/MIN; eGFR 72 ML/MIN
[2023-09-04] MEDS ORDERED: acetaminophen 325mg tablet PO PRN ×2 (15:20)
[2023-09-04] MEDS ORDERED: HYDROcodone/acetaminophen 5mg/325mg tablet PO PRN (15:20)
[2023-09-04] MEDS ORDERED: magnesium 4gm in 100ml NS 100 ML IV PRN (15:20)
[2023-09-04] MEDS ORDERED: magnesium 2GM in 50ml NS 50 ML IV PRN (15:20)
[2023-09-04] MEDS ORDERED: magnesium Cl slow-release 64mg tablet PO PRN (15:20)
[2023-09-04] MEDS ORDERED: morphine 2 MG/ML inj. syringe IV PRN ×2 (15:20)
[2023-09-04] MEDS ORDERED: HYDROcodone/acetaminophen 10/325mg tab PO PRN (15:20)
[2023-09-04] MEDS: normal saline 1000ml 1,000 ML IV SCH ×5 (15:21→22:25)
[2023-09-04 15:23] LABS: GLUCOSE 507 MG/DL (70-104); TOTAL CARBON DIOXIDE 10.9 MMOL/L (24-32)
[2023-09-04] MEDS ORDERED: normal saline 1000ml 1,000 ML IV SCH (15:25)
[2023-09-04] MEDS: Insulin Reg/NS 100units/100mL 100 ML IV SCH (16:12)
[2023-09-04] MEDS: HYDROmorphone 1 mg/ml syringe IV ONE ×2 (16:38→17:30)
[2023-09-04 18:37] LABS: ALBUMIN 3.3 G/DL (3.4-5.0); ANION GAP 18 (8-16); BLOOD UREA NITROGEN 28 MG/DL (7-18); BUN/CREATININE RATIO 26.4 (10.0-20.0); CALCIUM 8.7 MG/DL (8.5-10.1); CHLORIDE 104 MMOL/L (99-107); CREATININE 1.06 MG/DL (0.60-1.10); GLUCOSE 293 MG/DL (70-104); POTASSIUM 4.4 MMOL/L (3.5-5.1); SODIUM 138 MMOL/L (135-145); TOTAL CARBON DIOXIDE 15.9 MMOL/L (24-32); eCRCL 108 ML/MIN; eGFR 80 ML/MIN
[2023-09-04] MEDS: ondansetron/PF 4mg/2ml inj IV PRN ×2 (19:23→19:45)
[2023-09-04] MEDS: K and/or MAG REPLACEMENT MC SCH (20:00)
[2023-09-04] MEDS ORDERED: cefepime 1GM/NS ADD-VANTAGE 100 ML IV SCH (20:00)
[2023-09-04] MEDS ORDERED: K and/or MAG REPLACEMENT MC SCH (20:00)
[2023-09-04] MEDS ORDERED: LORazepam 2 mg/ml vial IV ONE (22:10)
[2023-09-04 22:41] LABS: ALBUMIN 3.2 G/DL (3.4-5.0); ANION GAP 12 (8-16); BLOOD UREA NITROGEN 25 MG/DL (7-18); BUN/CREATININE RATIO 26.6 (10.0-20.0); CALCIUM 8.8 MG/DL (8.5-10.1); CHLORIDE 105 MMOL/L (99-107); CREATININE 0.94 MG/DL (0.60-1.10); GLUCOSE 182 MG/DL (70-104); PHOSPHORUS 2.5 MG/DL (2.3-4.5); POTASSIUM 4.4 MMOL/L (3.5-5.1); SODIUM 137 MMOL/L (135-145); TOTAL CARBON DIOXIDE 19.9 MMOL/L (24-32); eCRCL 122 ML/MIN; eGFR > 90 ML/MIN
[2023-09-05] VITALS (7 sets, daily range): BP systolic 112–148; BP diastolic 51–88; PULSE 72–86; RESP 16–20; TEMP 97.5–98.9; O2SAT 93–98
[2023-09-05] MEDS ORDERED: proCHLORperazine 10 MG/2 ml inj IV ONE (00:20)
[2023-09-05 01:18] LABS: ALANINE AMINOTRANSFERASE 28 U/L (12-78); ALBUMIN 2.9 G/DL (3.4-5.0); ALBUMIN/GLOBULIN RATIO 0.9 (1.1-1.5); ALKALINE PHOSPHATASE 63 IU/L (46-116); ANION GAP 9 (8-16); ASPARTATE AMINO TRANSFERASE 12 U/L (10-37); BILIRUBIN,TOTAL 0.4 MG/DL (0.1-1.0); BLOOD UREA NITROGEN 23 MG/DL (7-18); BUN/CREATININE RATIO 23.5 (10.0-20.0); CALCIUM 8.6 MG/DL (8.5-10.1); CHLORIDE 105 MMOL/L (99-107); CREATININE 0.98 MG/DL (0.60-1.10); GLUCOSE 141 MG/DL (70-104); PHOSPHORUS 2.1 MG/DL (2.3-4.5); POTASSIUM 3.9 MMOL/L (3.5-5.1); SODIUM 136 MMOL/L (135-145); TOTAL CARBON DIOXIDE 22.3 MMOL/L (24-32); eCRCL 117 ML/MIN; eGFR 88 ML/MIN
[2023-09-05] MEDS: normal saline 1000ml 1,000 ML IV SCH ×3 (02:25→10:25)
[2023-09-05] MEDS: DEXTROSE 10 % AND 0.45 % NACL 1,000 ML IV SCH ×5 (03:40→23:40)
[2023-09-05 04:35] LABS: ALBUMIN 2.8 G/DL (3.4-5.0); ANION GAP 8 (8-16); BLOOD UREA NITROGEN 24 MG/DL (7-18); BUN/CREATININE RATIO 26.1 (10.0-20.0); CALCIUM 8.4 MG/DL (8.5-10.1); CHLORIDE 108 MMOL/L (99-107); CREATININE 0.92 MG/DL (0.60-1.10); GLUCOSE 97 MG/DL (70-104); POTASSIUM 3.7 MMOL/L (3.5-5.1); SODIUM 138 MMOL/L (135-145); eCRCL 124 ML/MIN; eGFR > 90 ML/MIN
[2023-09-05] MEDS: ondansetron/PF 4mg/2ml inj IV PRN ×2 (07:36→15:35)
[2023-09-05] MEDS ORDERED: DEXTROSE 15 GM of carb/4 tabs (each vial/BOTTLE has 4 tablets) PO PRN ×2 (08:00)
[2023-09-05] MEDS ORDERED: dextrose 50%-water 50ml dispensing syringe IV PRN ×2 (08:00)
[2023-09-05] MEDS ORDERED: MESSAGE TO PHARMACY PO ONE (08:00)
[2023-09-05] MEDS ORDERED: glucagon, human recombinant 1mg kit SUBCUT PRN (08:00)
[2023-09-05] MEDS: metoclopramide 5 mg/ml inj IV PRN ×2 (10:10→20:55)
[2023-09-05] MEDS: enoxaparin 40mg/0.4ml syringe SUBCUT SCH (10:11)
[2023-09-05] MEDS ORDERED: Insulin Reg/NS 100units/100mL 100 ML IV SCH ×2 (10:25→10:56)
[2023-09-05] MEDS: Insulin Reg/NS 100units/100mL 100 ML IV SCH (10:48)
[2023-09-05] MEDS ORDERED: chlorproMAZINE 25mg tablet PO ONE (11:00)
[2023-09-05 11:03] LABS: BASOPHILS # (AUTO) 0.2 X10'3 (0-0.2); EOSINOPHILS % (AUTO) 0.1 % (0-6); HEMATOCRIT 37.7 % (42.0-52.0); HEMOGLOBIN 12.5 g/dl (14.0-17.9); LYMPHOCYTES # (AUTO) 2.3 X10'3 (1.1-4.8); LYMPHOCYTES % (AUTO) 14.6 % (21-51); MEAN CORPUSCULAR HEMOGLOBIN 30.2 PG (27.0-31.0); MEAN CORPUSCULAR HGB CONC 33.3 g/dL (33.0-36.5); MEAN CORPUSCULAR VOLUME 90.8 FL (78-98); MEAN PLATELET VOLUME 8.7 FL (7.4-10.4); MONOCYTES # (AUTO) 1.2 X10'3 (0-0.9); MONOCYTES % (AUTO) 7.4 % (2-12); NEUTROPHILS # (AUTO) 12.4 X10'3 (1.8-7.7); NEUTROPHILS % (AUTO) 76.9 % (42-75); PLATELET COUNT 284 X10'3 (140-440); RED BLOOD COUNT 4.15 X10'6 (4.70-6.10); RED CELL DISTRIBUTION WIDTH 12.4 % (11.5-14.5); WHITE BLOOD COUNT 16.1 X10'3 (4.5-11.0)
[2023-09-05] MEDS: K and/or MAG REPLACEMENT MC SCH ×2 (11:25→20:00)
[2023-09-05 11:33] LABS: HEMOGLOBIN A1C 9.5 % (4.5-6.2)
[2023-09-05] MEDS: insulin Lispro (HumaLOG) vial - multi-dose SQ SCH ×2 (12:40→19:10)
[2023-09-05] MEDS ORDERED: insulin Lispro (HumaLOG) vial - multi-dose SQ SCH (16:45)
[2023-09-05 16:55] LABS: ALBUMIN 2.8 G/DL (3.4-5.0); ANION GAP 8 (8-16); BLOOD UREA NITROGEN 18 MG/DL (7-18); CALCIUM 8.5 MG/DL (8.5-10.1); CHLORIDE 102 MMOL/L (99-107); CREATININE 0.72 MG/DL (0.60-1.10); GLUCOSE 127 MG/DL (70-104); POTASSIUM 3.2 MMOL/L (3.5-5.1); SODIUM 132 MMOL/L (135-145); TOTAL CARBON DIOXIDE 21.6 MMOL/L (24-32); eCRCL 159 ML/MIN; eGFR > 90 ML/MIN
[2023-09-05] MEDS ORDERED: insulin glargine (Lantus) pen - multi-dose SQ SCH ×2 (21:00)
[2023-09-05 22:29] LABS: ALBUMIN 2.8 G/DL (3.4-5.0); ANION GAP 9 (8-16); BLOOD UREA NITROGEN 17 MG/DL (7-18); CALCIUM 8.4 MG/DL (8.5-10.1); CHLORIDE 99 MMOL/L (99-107); CREATININE 0.74 MG/DL (0.60-1.10); GLUCOSE 259 MG/DL (70-104); POTASSIUM 3.9 MMOL/L (3.5-5.1); SODIUM 131 MMOL/L (135-145); TOTAL CARBON DIOXIDE 22.6 MMOL/L (24-32); eCRCL 154 ML/MIN; eGFR > 90 ML/MIN
[2023-09-06] MEDS ORDERED: proCHLORperazine 10 MG/2 ml inj IV PRN (01:15)
[2023-09-06 02:00] VITALS: BP 131/71; PULSE 74; RESP 18; TEMP 98.6; O2SAT 97
[2023-09-06] MEDS: DEXTROSE 10 % AND 0.45 % NACL 1,000 ML IV SCH ×2 (03:46→09:40)
[2023-09-06 06:00] VITALS: BP 169/105; PULSE 89; RESP 15; TEMP 97.4; O2SAT 98
[2023-09-06 08:00] VITALS: RESP 15; O2SAT 98
[2023-09-06] MEDS: enoxaparin 40mg/0.4ml syringe SUBCUT SCH (08:00)
[2023-09-06] MEDS: K and/or MAG REPLACEMENT MC SCH (08:00)
[2023-09-06] MEDS: insulin Lispro (HumaLOG) vial - multi-dose SQ SCH ×2 (09:33→14:57)
[2023-09-06] MEDS: normal saline 1000ml 1,000 ML IV SCH ×2 (09:34)
[2023-09-06 09:47] LABS: BASOPHILS % (AUTO) 0.3 % (0-1); EOSINOPHILS % (AUTO) 0 % (0-6); HEMATOCRIT 38.2 % (42.0-52.0); LYMPHOCYTES # (AUTO) 1.6 X10'3 (1.1-4.8); LYMPHOCYTES % (AUTO) 14.1 % (21-51); MEAN CORPUSCULAR HEMOGLOBIN 30.2 PG (27.0-31.0); MEAN CORPUSCULAR HGB CONC 33.9 g/dL (33.0-36.5); MEAN PLATELET VOLUME 8.5 FL (7.4-10.4); MONOCYTES # (AUTO) 0.7 X10'3 (0-0.9); MONOCYTES % (AUTO) 6.1 % (2-12); NEUTROPHILS # (AUTO) 9.1 X10'3 (1.8-7.7); NEUTROPHILS % (AUTO) 79.5 % (42-75); PLATELET COUNT 249 X10'3 (140-440); RED CELL DISTRIBUTION WIDTH 11.9 % (11.5-14.5); WHITE BLOOD COUNT 11.5 X10'3 (4.5-11.0)
[2023-09-06 09:55] LABS: ALANINE AMINOTRANSFERASE 26 U/L (12-78); ALBUMIN 2.9 G/DL (3.4-5.0); ALKALINE PHOSPHATASE 65 IU/L (46-116); ANION GAP 8 (8-16); ASPARTATE AMINO TRANSFERASE 17 U/L (10-37); BILIRUBIN,TOTAL 1.2 MG/DL (0.1-1.0); BLOOD UREA NITROGEN 16 MG/DL (7-18); BUN/CREATININE RATIO 26.2 (10.0-20.0); CALCIUM 8.6 MG/DL (8.5-10.1); CHLORIDE 99 MMOL/L (99-107); CREATININE 0.61 MG/DL (0.60-1.10); GLUCOSE 232 MG/DL (70-104); POTASSIUM 3.4 MMOL/L (3.5-5.1); SODIUM 134 MMOL/L (135-145); TOTAL CARBON DIOXIDE 27.1 MMOL/L (24-32); TOTAL PROTEIN 5.9 G/DL (6.4-8.2); eCRCL 187 ML/MIN; eGFR > 90 ML/MIN
[2023-09-06] MEDS ORDERED: ONDA4TAB12 PO (10:55)
[2023-09-06 11:00] VITALS: BP 157/99; PULSE 81; RESP 18; TEMP 98.1; O2SAT 96
[2023-09-06] MEDS: metoclopramide 5 mg/ml inj IV PRN (13:10)
[2023-09-06 14:59] LABS: BASOPHILS % (AUTO) 0.5 % (0-1); EOSINOPHILS % (AUTO) 0.2 % (0-6); HEMATOCRIT 34.7 % (42.0-52.0); LYMPHOCYTES # (AUTO) 2.2 X10'3 (1.1-4.8); MEAN CORPUSCULAR HEMOGLOBIN 30.6 PG (27.0-31.0); MEAN CORPUSCULAR HGB CONC 34.7 g/dL (33.0-36.5); MEAN CORPUSCULAR VOLUME 88.4 FL (78-98); MEAN PLATELET VOLUME 8.4 FL (7.4-10.4); MONOCYTES # (AUTO) 0.8 X10'3 (0-0.9); NEUTROPHILS % (AUTO) 69.3 % (42-75); PLATELET COUNT 231 X10'3 (140-440); RED BLOOD COUNT 3.92 X10'6 (4.70-6.10); RED CELL DISTRIBUTION WIDTH 12.1 % (11.5-14.5); WHITE BLOOD COUNT 10.1 X10'3 (4.5-11.0)
[2023-09-06 15:00] VITALS: BP 132/90; PULSE 84; RESP 18; TEMP 97.9; O2SAT 98
[2023-09-06 15:10] LABS: ALANINE AMINOTRANSFERASE 24 U/L (12-78); ALBUMIN 2.6 G/DL (3.4-5.0); ALBUMIN/GLOBULIN RATIO 0.9 (1.1-1.5); ALKALINE PHOSPHATASE 61 IU/L (46-116); ANION GAP 10 (8-16); ASPARTATE AMINO TRANSFERASE 16 U/L (10-37); BILIRUBIN,TOTAL 1.2 MG/DL (0.1-1.0); BLOOD UREA NITROGEN 19 MG/DL (7-18); BUN/CREATININE RATIO 31.7 (10.0-20.0); CALCIUM 8.3 MG/DL (8.5-10.1); CHLORIDE 99 MMOL/L (99-107); GLUCOSE 205 MG/DL (70-104); POTASSIUM 3.5 MMOL/L (3.5-5.1); SODIUM 134 MMOL/L (135-145); TOTAL CARBON DIOXIDE 24.7 MMOL/L (24-32); TOTAL PROTEIN 5.5 G/DL (6.4-8.2); eCRCL 190 ML/MIN; eGFR > 90 ML/MIN
== END 2023-09-06 16:35 | disposition home or self-care (01) | DRG 420 ==
LOC: ER 12:07 → ED HOLD 15:25 → EDBEDREQ 09-05 05:40 → PCU 3S 09-05 07:17
PROVIDERS: ADMIT Internal Medicine; ATTEND Internal Medicine
DX: E10.10 Type 1 diabetes mellitus with ketoacidosis without coma (principal); N17.9 Acute kidney failure, unspecified; E87.1 Hypo-osmolality and hyponatremia; D72.829 Elevated white blood cell count, unspecified; E86.0 Dehydration; E87.5 Hyperkalemia; I10 Essential (primary) hypertension; T38.3X6A Underdosing of insulin and oral hypoglycemic [antidiabetic] drugs, initial encounter; Y92.89 Other specified places as the place of occurrence of the external cause
CPT/HCPCS: 36415; 36600; 80048; 80053; 80305; 81001; 82803; 82948; 83036; 83605; 83690; 84100; 84145; 85018; 85025; 85651; 87040; 87081; 97161; 99285; G0378; J0692; J0780; J1170; J1200; J1650; J1815; J2060; J2270; J2405; J2765; J3480; J3490; J7030; J7120; Q0161

== ENCOUNTER 2023-09-21 10:58 | Inpatient (IN) | payer MEDICAID ==
[~2023-09-21] VITALS: Ht 182.9 cm; Wt 85.4 kg
[~2023-09-21 10:58] MED LIST changes: -OMEP40CA21 PO; +ONDA4TAB12 PO
[2023-09-21] MEDS ORDERED: normal saline 1000ML IV soln IVB ONE ×3 (11:10→12:10)
[2023-09-21] MEDS ORDERED: diphenhydrAMINE 50 mg/ml inj IV ONE (11:15)
[2023-09-21] MEDS ORDERED: haloperidol lactate 5mg/ml inj IM ONE ×2 (11:15→12:30)
[2023-09-21] MEDS ORDERED: magnesium 2GM in 50ml NS 50 ML IV ONE (11:15)
[2023-09-21] MEDS ORDERED: LORazepam 2 mg/ml vial IV ONE ×2 (11:15→12:30)
[2023-09-21 11:26] LABS: BASOPHILS # (AUTO) 0.1 X10'3 (0-0.2); BASOPHILS % (AUTO) 0.5 % (0-1); EOSINOPHILS % (AUTO) 0.4 % (0-6); HEMATOCRIT 40.4 % (42.0-52.0); HEMOGLOBIN 13.7 g/dl (14.0-17.9); LYMPHOCYTES # (AUTO) 1.6 X10'3 (1.1-4.8); MEAN CORPUSCULAR HEMOGLOBIN 30.1 PG (27.0-31.0); MEAN CORPUSCULAR HGB CONC 33.8 g/dL (33.0-36.5); MEAN PLATELET VOLUME 8.1 FL (7.4-10.4); MONOCYTES # (AUTO) 0.4 X10'3 (0-0.9); NEUTROPHILS % (AUTO) 81.1 % (42-75); PLATELET COUNT 391 X10'3 (140-440); RED BLOOD COUNT 4.54 X10'6 (4.70-6.10); RED CELL DISTRIBUTION WIDTH 12.4 % (11.5-14.5); WHITE BLOOD COUNT 11.1 X10'3 (4.5-11.0)
[2023-09-21 12:02] LABS: ALBUMIN 3.5 G/DL (3.4-5.0); ANION GAP 18 (8-16); BLOOD UREA NITROGEN 23 MG/DL (7-18); BUN/CREATININE RATIO 20.4 (10.0-20.0); CALCIUM 9.4 MG/DL (8.5-10.1); CHLORIDE 96 MMOL/L (99-107); CREATININE 1.13 MG/DL (0.60-1.10); GLUCOSE 364 MG/DL (70-104); MAGNESIUM 1.6 MG/DL (1.5-2.4); POTASSIUM 3.6 MMOL/L (3.5-5.1); SODIUM 133 MMOL/L (135-145); TOTAL CARBON DIOXIDE 18.8 MMOL/L (24-32); eCRCL 101 ML/MIN; eGFR 74 ML/MIN
[2023-09-21 12:09] LABS: PHOSPHORUS 0.8 MG/DL (2.3-4.5)
[2023-09-21] MEDS ORDERED: insulin regular, human 10 units/0.1 ml syringe SQ ONE ×2 (12:10→13:15)
[2023-09-21] MEDS ORDERED: potassium Cl 40MEQ/1/2NS 520ml 520 ML IV PRN ×4 (12:15→15:20)
[2023-09-21] MEDS ORDERED: potassium Cl 20 mEq SR tablet PO PRN ×6 (12:15→15:20)
[2023-09-21] MEDS ORDERED: magnesium 4gm in 100ml NS 100 ML IV PRN ×2 (12:15→15:20)
[2023-09-21] MEDS ORDERED: magnesium Cl slow-release 64mg tablet PO PRN ×2 (12:15→15:20)
[2023-09-21] MEDS ORDERED: magnesium 2GM in 50ml NS 50 ML IV PRN ×2 (12:15→15:20)
[2023-09-21] MEDS ORDERED: sodium phosphate inj. 30 MMOL in dextrose 5%-water 250 ML IV PRN (13:55)
[2023-09-21] MEDS ORDERED: Neutra Phos packet PO PRN (13:55)
[2023-09-21] MEDS ORDERED: sodium phosphate inj. 15 MMOL in dextrose 5%-water 250 ML IV PRN (13:55)
[2023-09-21] MEDS ORDERED: Insulin Reg/NS 100units/100mL 100 ML IV SCH (14:00)
[2023-09-21] MEDS ORDERED: sodium bicarbonate (8.4%) inj. 100 MEQ in dextrose 5% water 500ml 500 ML IV PRN (14:00)
[2023-09-21] MEDS ORDERED: normal saline 1000ml 1,000 ML IV SCH (14:00)
[2023-09-21] MEDS ORDERED: sodium bicarbonate (8.4%) inj. 50 MEQ in dextrose 5% water 500ml 250 ML IV PRN (14:00)
[2023-09-21] MEDS ORDERED: sodium bicarbonate (8.4%) inj. 100 MEQ in dextrose 5%-water 1,000 ML IV PRN (14:15)
[2023-09-21] MEDS ORDERED: HYDROcodone/acetaminophen 5mg/325mg tablet PO PRN (15:20)
[2023-09-21] MEDS ORDERED: ondansetron 4mg rapidly disintigrating tab PO PRN (15:20)
[2023-09-21] MEDS ORDERED: magnesium hydroxide 30ml (MOM) UD suspension PO PRN (15:20)
[2023-09-21] MEDS ORDERED: bisacodyl 10mg suppository rectal RC PRN (15:20)
[2023-09-21] MEDS ORDERED: acetaminophen 650mg rectal suppository RC PRN (15:20)
[2023-09-21] MEDS ORDERED: mag hydrox/Alum hydrox/simeth 30ml oral suspension PO PRN (15:20)
[2023-09-21] MEDS ORDERED: morphine 2 MG/ML inj. syringe IV PRN (15:20)
[2023-09-21] MEDS ORDERED: acetaminophen 325mg tablet PO PRN ×2 (15:20)
[2023-09-21] MEDS ORDERED: diphenhydrAMINE 25mg capsule PO PRN (15:20)
[2023-09-21] MEDS: dextrose 5%-normal saline 1,000 ML IV SCH ×2 (15:55→22:08)
[2023-09-21] MEDS ORDERED: potassium CL 20mEq in D5-1/2NS 1,000 ML IV PRN (16:05)
[2023-09-21] MEDS: potassium CL 20mEq in D5-1/2NS 1,000 ML IV PRN ×2 (16:13→20:43)
[2023-09-21 16:49] LABS: ALBUMIN 2.9 G/DL (3.4-5.0); ANION GAP 9 (8-16); BLOOD UREA NITROGEN 18 MG/DL (7-18); BUN/CREATININE RATIO 23.7 (10.0-20.0); CALCIUM 7.7 MG/DL (8.5-10.1); CHLORIDE 106 MMOL/L (99-107); CREATININE 0.76 MG/DL (0.60-1.10); GLUCOSE 170 MG/DL (70-104); PHOSPHORUS 3.2 MG/DL (2.3-4.5); POTASSIUM 3.5 MMOL/L (3.5-5.1); SODIUM 140 MMOL/L (135-145); TOTAL CARBON DIOXIDE 24.8 MMOL/L (24-32); eCRCL 150 ML/MIN; eGFR > 90 ML/MIN
[2023-09-21] MEDS: ondansetron/PF 4mg/2ml inj IV PRN (19:32)
[2023-09-21] MEDS ORDERED: K and/or MAG REPLACEMENT MC SCH ×2 (20:00)
[2023-09-21] MEDS: docusate sod 100mg capsule PO SCH (20:00)
[2023-09-21] MEDS: heparin, porcine 5000 units/ml vial SQ SCH (20:00)
[2023-09-21] MEDS: K and/or MAG REPLACEMENT MC SCH (20:15)
[2023-09-21] MEDS ORDERED: proCHLORperazine 10 MG/2 ml inj IV STA (20:16)
[2023-09-21 22:22] LABS: ALBUMIN 2.8 G/DL (3.4-5.0); ANION GAP 8 (8-16); BLOOD UREA NITROGEN 17 MG/DL (7-18); BUN/CREATININE RATIO 23.3 (10.0-20.0); CALCIUM 7.8 MG/DL (8.5-10.1); CHLORIDE 103 MMOL/L (99-107); CREATININE 0.73 MG/DL (0.60-1.10); GLUCOSE 233 MG/DL (70-104); PHOSPHORUS 2.7 MG/DL (2.3-4.5); POTASSIUM 3.6 MMOL/L (3.5-5.1); SODIUM 136 MMOL/L (135-145); TOTAL CARBON DIOXIDE 25.2 MMOL/L (24-32); eCRCL 157 ML/MIN; eGFR > 90 ML/MIN
[2023-09-22] MEDS: potassium CL 20mEq in D5-1/2NS 1,000 ML IV PRN (02:18)
[2023-09-22] MEDS: ondansetron/PF 4mg/2ml inj IV PRN ×2 (05:41→19:09)
[2023-09-22] MEDS: docusate sod 100mg capsule PO SCH (08:00)
[2023-09-22] MEDS: K and/or MAG REPLACEMENT MC SCH ×2 (08:00→20:00)
[2023-09-22 08:26] LABS: BASOPHILS % (AUTO) 0.3 % (0-1); EOSINOPHILS % (AUTO) 0.1 % (0-6); HEMATOCRIT 37.3 % (42.0-52.0); HEMOGLOBIN 12.5 g/dl (14.0-17.9); LYMPHOCYTES # (AUTO) 1.2 X10'3 (1.1-4.8); LYMPHOCYTES % (AUTO) 7.9 % (21-51); MEAN CORPUSCULAR HEMOGLOBIN 30.1 PG (27.0-31.0); MEAN CORPUSCULAR HGB CONC 33.4 g/dL (33.0-36.5); MEAN CORPUSCULAR VOLUME 90.2 FL (78-98); MEAN PLATELET VOLUME 8.1 FL (7.4-10.4); MONOCYTES # (AUTO) 0.9 X10'3 (0-0.9); MONOCYTES % (AUTO) 5.9 % (2-12); NEUTROPHILS # (AUTO) 13.2 X10'3 (1.8-7.7); NEUTROPHILS % (AUTO) 85.8 % (42-75); PLATELET COUNT 301 X10'3 (140-440); RED BLOOD COUNT 4.14 X10'6 (4.70-6.10); RED CELL DISTRIBUTION WIDTH 12.6 % (11.5-14.5); WHITE BLOOD COUNT 15.4 X10'3 (4.5-11.0)
[2023-09-22] MEDS: heparin, porcine 5000 units/ml vial SQ SCH ×2 (08:39→19:13)
[2023-09-22 08:48] LABS: ANION GAP 10 (8-16); BLOOD UREA NITROGEN 13 MG/DL (7-18); CHLORIDE 101 MMOL/L (99-107); CREATININE 0.65 MG/DL (0.60-1.10); GLUCOSE 245 MG/DL (70-104); POTASSIUM 3.5 MMOL/L (3.5-5.1); SODIUM 134 MMOL/L (135-145); TOTAL CARBON DIOXIDE 22.9 MMOL/L (24-32); eCRCL 176 ML/MIN; eGFR > 90 ML/MIN
[2023-09-22 08:49] LABS: ALANINE AMINOTRANSFERASE 34 U/L (12-78); ALBUMIN 2.7 G/DL (3.4-5.0); ALBUMIN/GLOBULIN RATIO 0.8 (1.1-1.5); ALKALINE PHOSPHATASE 61 IU/L (46-116); ASPARTATE AMINO TRANSFERASE 16 U/L (10-37); BILIRUBIN,TOTAL 0.6 MG/DL (0.1-1.0); CALCIUM 8.2 MG/DL (8.5-10.1); CHOL/HDL RATIO 2.9 (0.00-4.99); CHOLESTEROL 212 MG/DL (0-200); HDL CHOLESTEROL 74 MG/DL (35-60); LDL CHOLESTEROL 112 MG/DL (50-100); MAGNESIUM 1.6 MG/DL (1.5-2.4); TOTAL PROTEIN 5.9 G/DL (6.4-8.2); TRIGLYCERIDES 69 MG/DL (20-135)
[2023-09-22] MEDS ORDERED: insulin regular, human 10 units/0.1 ml syringe SQ ONE (10:50)
[2023-09-22] MEDS ORDERED: DEXTROSE 15 GM of carb/4 tabs (each vial/BOTTLE has 4 tablets) PO PRN ×2 (10:55)
[2023-09-22] MEDS ORDERED: MESSAGE TO PHARMACY PO ONE (10:55)
[2023-09-22] MEDS ORDERED: dextrose 50%-water 50ml dispensing syringe IV PRN ×2 (10:55)
[2023-09-22] MEDS ORDERED: glucagon, human recombinant 1mg kit SUBCUT PRN (10:55)
[2023-09-22] MEDS: normal saline 1000ml 1,000 ML IV SCH ×2 (11:41→20:55)
[2023-09-22] MEDS: HYDROcodone/acetaminophen 10/325mg tab PO PRN (15:32)
[2023-09-22] MEDS: insulin Lispro (HumaLOG) vial - multi-dose SQ SCH ×2 (16:26→20:31)
[2023-09-22 17:15] VITALS: BP 140/105; PULSE 106; RESP 14; TEMP 98.7; O2SAT 99
[2023-09-22 18:00] VITALS: BP 135/98; PULSE 101; RESP 20; TEMP 98.6; O2SAT 98
[2023-09-22 20:00] VITALS: RESP 20; O2SAT 98
[2023-09-22] MEDS ORDERED: proCHLORperazine 10 MG/2 ml inj IV ONE (21:00)
[2023-09-22] MEDS: morphine 2 MG/ML inj. syringe IV PRN (21:16)
[2023-09-22 22:00] VITALS: BP 119/74; PULSE 98; RESP 16; TEMP 97.6; O2SAT 96
[2023-09-22] MEDS: insulin glargine (Lantus) pen - multi-dose SQ SCH (22:18)
[2023-09-23] VITALS (8 sets, daily range): BP systolic 124–159; BP diastolic 84–100; PULSE 75–149; RESP 15–22; TEMP 97.6–98.2; O2SAT 96–100
[2023-09-23] MEDS: morphine 2 MG/ML inj. syringe IV PRN (02:16)
[2023-09-23] MEDS: ondansetron/PF 4mg/2ml inj IV PRN ×3 (02:16→17:55)
[2023-09-23 02:29] LABS: BILIRUBIN,URINE NEGATIVE (Neg); CLARITY,URINE CLEAR (Clear); COLOR,URINE YELLOW (Yellow); GLUCOSE, URINE >=1000 mg/dl (Neg); KETONES,URINE >=80 mg/dl (Neg); LEUKOCYTE ESTERASE ,URINE NEGATIVE (Neg); NITRITES, URINE NEGATIVE (Neg); OCCULT BLOOD,URINE TRACE-INTACT (Neg); PROTEIN,URINE 100 mg/dl (Neg); UROBILINOGEN,URINE 0.2 E.U/dL (0.2-1.0)
[2023-09-23 02:34] LABS: UA COLLECTION TYPE NON-SPECIFIED
[2023-09-23 02:39] LABS: WBC,URINE 0-4 /HPF (0-4)
[2023-09-23 02:40] LABS: BACTERIA,URINE FEW /HPF (Neg); FINE GRANULAR CAST 0-3 /LPF (NEGATIVE); SQUAMOUS EPITHELIAL CELL,UR FEW /LPF (FEW)
[2023-09-23 06:36] LABS: BASOPHILS % (AUTO) 0.3 % (0-1); EOSINOPHILS % (AUTO) 0 % (0-6); HEMATOCRIT 36.4 % (42.0-52.0); HEMOGLOBIN 12.3 g/dl (14.0-17.9); LYMPHOCYTES # (AUTO) 1.4 X10'3 (1.1-4.8); LYMPHOCYTES % (AUTO) 12.3 % (21-51); MEAN CORPUSCULAR HEMOGLOBIN 30.6 PG (27.0-31.0); MEAN CORPUSCULAR HGB CONC 33.9 g/dL (33.0-36.5); MEAN CORPUSCULAR VOLUME 90.3 FL (78-98); MEAN PLATELET VOLUME 8.1 FL (7.4-10.4); MONOCYTES # (AUTO) 0.6 X10'3 (0-0.9); MONOCYTES % (AUTO) 5.2 % (2-12); NEUTROPHILS # (AUTO) 9.6 X10'3 (1.8-7.7); NEUTROPHILS % (AUTO) 82.2 % (42-75); PLATELET COUNT 312 X10'3 (140-440); RED BLOOD COUNT 4.03 X10'6 (4.70-6.10); RED CELL DISTRIBUTION WIDTH 12.6 % (11.5-14.5); WHITE BLOOD COUNT 11.7 X10'3 (4.5-11.0)
[2023-09-23 06:54] LABS: ALANINE AMINOTRANSFERASE 29 U/L (12-78); ALBUMIN 2.7 G/DL (3.4-5.0); ALBUMIN/GLOBULIN RATIO 0.8 (1.1-1.5); ALKALINE PHOSPHATASE 68 IU/L (46-116); ANION GAP 14 (8-16); ASPARTATE AMINO TRANSFERASE 12 U/L (10-37); BILIRUBIN,TOTAL 0.8 MG/DL (0.1-1.0); BLOOD UREA NITROGEN 16 MG/DL (7-18); BUN/CREATININE RATIO 22.9 (10.0-20.0); CALCIUM 8.3 MG/DL (8.5-10.1); CHLORIDE 102 MMOL/L (99-107); GLUCOSE 283 MG/DL (70-104); MAGNESIUM 1.7 MG/DL (1.5-2.4); PHOSPHORUS 3.2 MG/DL (2.3-4.5); POTASSIUM 4.2 MMOL/L (3.5-5.1); SODIUM 138 MMOL/L (135-145); TOTAL CARBON DIOXIDE 21.7 MMOL/L (24-32); TOTAL PROTEIN 5.9 G/DL (6.4-8.2); eCRCL 163 ML/MIN; eGFR > 90 ML/MIN
[2023-09-23] MEDS: normal saline 1000ml 1,000 ML IV SCH ×2 (06:55→17:47)
[2023-09-23] MEDS: heparin, porcine 5000 units/ml vial SQ SCH ×2 (07:33→20:24)
[2023-09-23] MEDS: K and/or MAG REPLACEMENT MC SCH ×2 (08:00→20:00)
[2023-09-23] MEDS: insulin Lispro (HumaLOG) vial - multi-dose SQ SCH ×2 (09:12→13:28)
[2023-09-23] MEDS ORDERED: insulin regular, human 10 units/0.1 ml syringe SQ ONE (10:00)
[2023-09-23] MEDS: thiamine 100mg tablet PO SCH ×2 (13:05→20:22)
[2023-09-23] MEDS: folic acid 1mg tablet PO SCH (13:05)
[2023-09-23] MEDS: multivitamins, therapeutics tablet PO SCH (13:05)
[2023-09-23] MEDS: metoclopramide 5 mg/ml inj IV PRN ×2 (13:11→21:37)
[2023-09-23] MEDS: HYDROcodone/acetaminophen 10/325mg tab PO PRN (18:53)
[2023-09-23] MEDS: insulin glargine (Lantus) pen - multi-dose SQ SCH (21:43)
[2023-09-24] MEDS: HYDROcodone/acetaminophen 10/325mg tab PO PRN (00:44)
[2023-09-24 02:00] VITALS: BP 151/96; PULSE 75; RESP 14; TEMP 98.8; O2SAT 99
[2023-09-24] MEDS ORDERED: proCHLORperazine 10 MG/2 ml inj IM ONE (02:55)
[2023-09-24] MEDS: normal saline 1000ml 1,000 ML IV SCH (03:54)
[2023-09-24] MEDS ORDERED: proCHLORperazine 10 MG/2 ml inj IV ONE (04:20)
[2023-09-24 07:14] LABS: BASOPHILS % (AUTO) 0.5 % (0-1); EOSINOPHILS % (AUTO) 0.1 % (0-6); HEMATOCRIT 34.7 % (42.0-52.0); LYMPHOCYTES # (AUTO) 1.6 X10'3 (1.1-4.8); LYMPHOCYTES % (AUTO) 19.1 % (21-51); MEAN CORPUSCULAR HEMOGLOBIN 30.6 PG (27.0-31.0); MEAN CORPUSCULAR HGB CONC 34.5 g/dL (33.0-36.5); MEAN CORPUSCULAR VOLUME 88.8 FL (78-98); MEAN PLATELET VOLUME 7.7 FL (7.4-10.4); MONOCYTES # (AUTO) 0.5 X10'3 (0-0.9); NEUTROPHILS # (AUTO) 6.3 X10'3 (1.8-7.7); NEUTROPHILS % (AUTO) 74.3 % (42-75); PLATELET COUNT 280 X10'3 (140-440); RED BLOOD COUNT 3.91 X10'6 (4.70-6.10); RED CELL DISTRIBUTION WIDTH 12.6 % (11.5-14.5); WHITE BLOOD COUNT 8.5 X10'3 (4.5-11.0)
[2023-09-24] MEDS: multivitamins, therapeutics tablet PO SCH (07:42)
[2023-09-24] MEDS: thiamine 100mg tablet PO SCH (07:42)
[2023-09-24] MEDS: folic acid 1mg tablet PO SCH (07:42)
[2023-09-24] MEDS: heparin, porcine 5000 units/ml vial SQ SCH (07:45)
[2023-09-24] MEDS ORDERED: lisinopril 10 MG tablet PO SCH (08:00)
[2023-09-24 08:15] VITALS: BP 159/98; PULSE 92; RESP 16; TEMP 97.6; O2SAT 98
[2023-09-24 08:26] LABS: ALANINE AMINOTRANSFERASE 24 U/L (12-78); ALBUMIN 2.7 G/DL (3.4-5.0); ALBUMIN/GLOBULIN RATIO 0.9 (1.1-1.5); ALKALINE PHOSPHATASE 66 IU/L (46-116); ANION GAP 16 (8-16); ASPARTATE AMINO TRANSFERASE 14 U/L (10-37); BILIRUBIN,TOTAL 1.1 MG/DL (0.1-1.0); BLOOD UREA NITROGEN 14 MG/DL (7-18); BUN/CREATININE RATIO 24.6 (10.0-20.0); CALCIUM 7.9 MG/DL (8.5-10.1); CHLORIDE 94 MMOL/L (99-107); CREATININE 0.57 MG/DL (0.60-1.10); GLUCOSE 305 MG/DL (70-104); MAGNESIUM 1.5 MG/DL (1.5-2.4); PHOSPHORUS 2.2 MG/DL (2.3-4.5); POTASSIUM 3.8 MMOL/L (3.5-5.1); SODIUM 131 MMOL/L (135-145); TOTAL CARBON DIOXIDE 21.4 MMOL/L (24-32); TOTAL PROTEIN 5.6 G/DL (6.4-8.2); eCRCL 200 ML/MIN; eGFR > 90 ML/MIN
[2023-09-24] MEDS: K and/or MAG REPLACEMENT MC SCH (08:28)
[2023-09-24] MEDS: insulin Lispro (HumaLOG) vial - multi-dose SQ SCH (08:55)
[2023-09-24 09:47] VITALS: RESP 16; O2SAT 98
[2023-09-24] MEDS ORDERED: INSU100V40 SQ (10:29)
[2023-09-24] MEDS ORDERED: INSU100I31 SQ (10:29)
[2023-09-24 11:22] VITALS: BP 138/93; PULSE 86; RESP 17; TEMP 98.2; O2SAT 98
== END 2023-09-24 11:25 | disposition home or self-care (01) | DRG 420 ==
LOC: ER 10:58 → ED HOLD 15:31 → PCU 3S 09-22 17:40
PROVIDERS: ADMIT Family Medicine; ATTEND Family Medicine
DX: E10.10 Type 1 diabetes mellitus with ketoacidosis without coma (principal); G93.41 Metabolic encephalopathy; E83.39 Other disorders of phosphorus metabolism; E86.0 Dehydration; I10 Essential (primary) hypertension; E87.1 Hypo-osmolality and hyponatremia; E87.5 Hyperkalemia; F19.10 Other psychoactive substance abuse, uncomplicated; Z88.2 Allergy status to sulfonamides; Z79.899 Other long term (current) drug therapy; Z79.4 Long term (current) use of insulin
CPT/HCPCS: 36415; 71045; 80048; 80053; 80061; 81001; 82948; 83036; 83605; 83735; 84100; 84145; 85025; 87040; 87081; 93005; 99285; A4615; A6258; G0378; J0780; J1200; J1630; J1644; J1815; J2060; J2270; J2405; J2765; J3475; J3480; J3490; J7030; J7060

== ENCOUNTER 2023-10-12 10:34 | Emergency (ER) | payer MEDICAID ==
[~2023-10-12] VITALS: Ht 182.9 cm; Wt 75.8 kg
[2023-10-12 11:14] LABS: BASOPHILS # (AUTO) 0.1 X10'3 (0-0.2); BASOPHILS % (AUTO) 0.4 % (0-1); EOSINOPHILS % (AUTO) 0 % (0-6); HEMATOCRIT 39.1 % (42.0-52.0); HEMOGLOBIN 13.2 g/dl (14.0-17.9); LYMPHOCYTES # (AUTO) 1.7 X10'3 (1.1-4.8); LYMPHOCYTES % (AUTO) 11.9 % (21-51); MEAN CORPUSCULAR HEMOGLOBIN 30.2 PG (27.0-31.0); MEAN CORPUSCULAR HGB CONC 33.7 g/dL (33.0-36.5); MEAN CORPUSCULAR VOLUME 89.5 FL (78-98); MEAN PLATELET VOLUME 7.3 FL (7.4-10.4); MONOCYTES # (AUTO) 0.8 X10'3 (0-0.9); MONOCYTES % (AUTO) 5.2 % (2-12); NEUTROPHILS # (AUTO) 11.9 X10'3 (1.8-7.7); NEUTROPHILS % (AUTO) 82.5 % (42-75); PLATELET COUNT 503 X10'3 (140-440); RED BLOOD COUNT 4.37 X10'6 (4.70-6.10); RED CELL DISTRIBUTION WIDTH 13.3 % (11.5-14.5); WHITE BLOOD COUNT 14.4 X10'3 (4.5-11.0)
[2023-10-12 11:21] LABS: BILIRUBIN,URINE NEGATIVE (Neg); CLARITY,URINE SLIGHTLY CLOUDY (Clear); COLOR,URINE YELLOW (Yellow); GLUCOSE, URINE 500 mg/dl (Neg); KETONES,URINE 15 mg/dl (Neg); LEUKOCYTE ESTERASE ,URINE NEGATIVE (Neg); NITRITES, URINE NEGATIVE (Neg); OCCULT BLOOD,URINE TRACE-INTACT (Neg); PROTEIN,URINE >=300 mg/dl (Neg)
[2023-10-12 11:24] LABS: ALBUMIN 3.2 G/DL (3.4-5.0); ANION GAP 16 (8-16); BLOOD UREA NITROGEN 21 MG/DL (7-18); BUN/CREATININE RATIO 23.3 (10.0-20.0); CHLORIDE 98 MMOL/L (99-107); GLUCOSE 276 MG/DL (70-104); LIPASE 18 U/L (16-77); POTASSIUM 3.7 MMOL/L (3.5-5.1); SODIUM 133 MMOL/L (135-145); TOTAL CARBON DIOXIDE 19.4 MMOL/L (24-32); eCRCL 124 ML/MIN; eGFR > 90 ML/MIN
[2023-10-12 11:25] LABS: UA COLLECTION TYPE CLN CATCH MIDSTREAM
[2023-10-12 11:35] LABS: AMORPHOUS PHOSPHATES 2+
[2023-10-12 11:36] LABS: BACTERIA,URINE FEW /HPF (Neg)
[2023-10-12 11:39] LABS: SQUAMOUS EPITHELIAL CELL,UR FEW /LPF (FEW)
[2023-10-12 11:41] LABS: URINE AMPHETAMINE SCREEN NEGATIVE (Neg); URINE BARBITUATE SCREEN NEGATIVE (Neg); URINE BENZODIAZEPINES SCREEN NEGATIVE (Neg); URINE CANNABINOID SCREEN POSITIVE (Neg); URINE COCAINE SCREEN NEGATIVE (Neg); URINE METHADONE SCREEN NEGATIVE (Neg); URINE OPIATE SCREEN NEGATIVE (Neg); URINE PHENCYCLIDINE SCREEN NEGATIVE (Neg)
[2023-10-12 11:43] LABS: WBC,URINE 0-4 /HPF (0-4)
[2023-10-12 11:47] LABS: RBC,URINE 20-30 /HPF (0-2)
[2023-10-12 11:50] LABS: RENAL CELLS, URINE FEW /HPF
[2023-10-12] MEDS: morphine 4 MG/ML inj SYRINge IV ONE (16:55)
[2023-10-12] MEDS: ondansetron/PF 4mg/2ml inj IV ONE (17:14)
[2023-10-12] MEDS: normal saline 1000ML IV soln IVB ONE (17:14)
[2023-10-12] MEDS: metoclopramide 5 mg/ml inj IV ONE (17:15)
[2023-10-12] MEDS: LORazepam 2 mg/ml vial IV ONE (17:15)
[2023-10-12] MEDS: pantoprazole 40 MG vial IV ONE (17:15)
[2023-10-12] MEDS: normal saline 1000ml 1,000 ML IV SCH (17:25)
[2023-10-12 17:43] LABS: ACETONE NEGATIVE (NEGATIVE)
[2023-10-12 17:44] LABS: MAGNESIUM 1.7 MG/DL (1.5-2.4)
[2023-10-12 17:52] LABS: ETHANOL < 10 MG/DL (<10)
[2023-10-12 18:42] LABS: ABG BASE EXCESS 0.3 mmol/L (-2.0-2.0); ABG HCO3 24.1 mmol/L (22.0-26.0); ABG OXYGEN SATURATION 97.1 % (94-97); ABG PCO2 (T) 35.3 mmHg (35.0-48.0); ABG PH (T) 7.449 (7.340-7.440); ABG PO2 (T) 93.1 mmHg (75.0-100.0); ALLEN'S TEST POSITIVE; FCOHb 0.3 % (0.0-3.9); FHHb 2.9 % (0.0-5.0); FMetHb 0.3 % (0.0-1.5); FO2Hb 96.5 % (94-97); MODE ROOM AIR; PATIENT TEMPERATURE 36.5; TOTAL HEMOGLOBIN 11.8 G/dl (14.0-17.9)
[2023-10-12] MEDS ORDERED: METO5TAB98 PO (20:00)
[2023-10-12] MEDS ORDERED: PANT20TA18 PO (20:00)
[2023-10-12] MEDS ORDERED: PROM25SU9 RC (20:00)
[2023-10-12] MEDS: normal saline 1000ml 1,000 ML IV STA (20:18)
[2023-10-12 20:57] VITALS: BP 127/89; PULSE 84; RESP 20; TEMP 98.6; O2SAT 97
== END 2023-10-12 20:58 | disposition home or self-care (01) ==
LOC: ER 10:34
DX: G89.29 Other chronic pain (principal); R10.30 Lower abdominal pain, unspecified; E13.65 Other specified diabetes mellitus with hyperglycemia; K31.84 Gastroparesis
CPT/HCPCS: 36415; 36600; 71045; 80048; 80305; 80320; 81001; 82009; 82803; 82948; 83690; 83735; 84484; 85018; 85025; 93005; 96361; 96374; 96375; 99285; C9113; J2060; J2405; J2765; J7030

== ENCOUNTER 2023-10-29 13:09 | Inpatient (IN) | payer MEDICAID ==
[~2023-10-29] VITALS: Ht 188 cm; Wt 80.0 kg
[~2023-10-29 13:09] MED LIST changes: +METO5TAB98 PO; +PANT20TA18 PO; +PROM25SU9 RC
[2023-10-29] MEDS: normal saline 1000ML IV soln IVB ONE (13:47)
[2023-10-29] MEDS: morphine 2 MG/ML inj. syringe IV PRN (13:47)
[2023-10-29] MEDS: metoclopramide 5 mg/ml inj IV ONE (13:48)
[2023-10-29 13:54] LABS: BASOPHILS % (AUTO) 0.1 % (0-1); EOSINOPHILS % (AUTO) 0 % (0-6); HEMATOCRIT 41.8 % (42.0-52.0); HEMOGLOBIN 13.4 g/dl (14.0-17.9); LYMPHOCYTES # (AUTO) 1.3 X10'3 (1.1-4.8); LYMPHOCYTES % (AUTO) 8.4 % (21-51); MEAN CORPUSCULAR HEMOGLOBIN 30.4 PG (27.0-31.0); MEAN CORPUSCULAR VOLUME 94.8 FL (78-98); MONOCYTES # (AUTO) 1.1 X10'3 (0-0.9); MONOCYTES % (AUTO) 6.9 % (2-12); NEUTROPHILS # (AUTO) 12.9 X10'3 (1.8-7.7); NEUTROPHILS % (AUTO) 84.6 % (42-75); PLATELET COUNT 494 X10'3 (140-440); RED BLOOD COUNT 4.41 X10'6 (4.70-6.10); WHITE BLOOD COUNT 15.3 X10'3 (4.5-11.0)
[2023-10-29] MEDS: insulin regular, human U-100 3ml vial - multi-dose SQ ONE (13:55)
[2023-10-29 14:09] LABS: APTT 21 SECONDS (22-32); PROTHROMBIN TIME 10.3 SECONDS (9.0-12.0)
[2023-10-29] MEDS ORDERED: pantoprazole 40mg IV 80 MG in normal saline 100ml IV soln 100 ML IV ONE (14:10)
[2023-10-29 14:11] LABS: BILIRUBIN,URINE NEGATIVE (Neg); CLARITY,URINE CLEAR (Clear); COLOR,URINE YELLOW (Yellow); GLUCOSE, URINE >=1000 mg/dl (Neg); KETONES,URINE >=80 mg/dl (Neg); LEUKOCYTE ESTERASE ,URINE NEGATIVE (Neg); NITRITES, URINE NEGATIVE (Neg); OCCULT BLOOD,URINE TRACE-INTACT (Neg); PROTEIN,URINE 30 mg/dl (Neg); UROBILINOGEN,URINE 0.2 E.U/dL (0.2-1.0)
[2023-10-29 14:13] LABS: ALBUMIN 3.4 G/DL (3.4-5.0); ANION GAP 32 (8-16); BLOOD UREA NITROGEN 56 MG/DL (7-18); BUN/CREATININE RATIO 27.7 (10.0-20.0); CALCIUM 8.3 MG/DL (8.5-10.1); CHLORIDE 94 MMOL/L (99-107); CREATININE 2.02 MG/DL (0.60-1.10); ETHANOL < 10 MG/DL (<10); LIPASE 24 U/L (16-77); MAGNESIUM 2.7 MG/DL (1.5-2.4); POTASSIUM 5.2 MMOL/L (3.5-5.1); SODIUM 135 MMOL/L (135-145); eCRCL 58 ML/MIN; eGFR 38 ML/MIN
[2023-10-29 14:16] LABS: UA COLLECTION TYPE NON-SPECIFIED
[2023-10-29 14:18] LABS: GLUCOSE 651 MG/DL (70-104); TOTAL CARBON DIOXIDE 8.6 MMOL/L (24-32)
[2023-10-29 14:18] LABS: HYALINE CASTS 0-3 /LPF (NEGATIVE)
[2023-10-29 14:20] LABS: BACTERIA,URINE NONE SEEN /HPF (Neg); RBC,URINE NONE SEEN /HPF (0-2); SQUAMOUS EPITHELIAL CELL,UR NONE SEEN /LPF (FEW); WBC,URINE 0-4 /HPF (0-4)
[2023-10-29] MEDS ORDERED: sodium phosphate inj. 30 MMOL in dextrose 5%-water 250 ML IV PRN (14:30)
[2023-10-29] MEDS ORDERED: sodium bicarbonate (8.4%) inj. 50 MEQ in dextrose 5% water 500ml 250 ML IV PRN (14:30)
[2023-10-29] MEDS ORDERED: Neutra Phos packet PO PRN (14:30)
[2023-10-29] MEDS ORDERED: sodium bicarbonate (8.4%) inj. 100 MEQ in dextrose 5% water 500ml 500 ML IV PRN (14:30)
[2023-10-29] MEDS ORDERED: sodium phosphate inj. 15 MMOL in dextrose 5%-water 250 ML IV PRN (14:30)
[2023-10-29] MEDS ORDERED: potassium Cl 40MEQ/1/2NS 520ml 520 ML IV PRN ×3 (14:30→15:30)
[2023-10-29] MEDS ORDERED: potassium Cl 20 mEq SR tablet PO PRN ×4 (14:30→15:30)
[2023-10-29] MEDS ORDERED: insulin regular, human U-100 3ml vial - multi-dose IV PRN (14:30)
[2023-10-29] MEDS: Insulin Reg/NS 100units/100mL 100 ML IV PRN (14:52)
[2023-10-29 15:02] LABS: URINE AMPHETAMINE SCREEN NEGATIVE (Neg); URINE BARBITUATE SCREEN NEGATIVE (Neg); URINE BENZODIAZEPINES SCREEN NEGATIVE (Neg); URINE CANNABINOID SCREEN NEGATIVE (Neg); URINE COCAINE SCREEN NEGATIVE (Neg); URINE METHADONE SCREEN NEGATIVE (Neg); URINE OPIATE SCREEN NEGATIVE (Neg); URINE PHENCYCLIDINE SCREEN NEGATIVE (Neg)
[2023-10-29 15:03] LABS: GASTRIC OCCULT BLOOD POSITIVE (Neg)
[2023-10-29] MEDS: pantoprazole 40 MG vial IV ONE (15:23)
[2023-10-29] MEDS ORDERED: magnesium 2GM in 50ml NS 50 ML IV PRN (15:30)
[2023-10-29] MEDS ORDERED: magnesium 4gm in 100ml NS 100 ML IV PRN (15:30)
[2023-10-29] MEDS ORDERED: diphenhydrAMINE 25mg capsule PO PRN (15:30)
[2023-10-29] MEDS ORDERED: bisacodyl 10mg suppository rectal RC PRN (15:30)
[2023-10-29] MEDS ORDERED: morphine 2 MG/ML inj. syringe IV PRN (15:30)
[2023-10-29] MEDS ORDERED: magnesium hydroxide 30ml (MOM) UD suspension PO PRN (15:30)
[2023-10-29] MEDS ORDERED: magnesium Cl slow-release 64mg tablet PO PRN (15:30)
[2023-10-29] MEDS ORDERED: mag hydrox/Alum hydrox/simeth 30ml oral suspension PO PRN (15:30)
[2023-10-29] MEDS ORDERED: diphenhydrAMINE 50 mg/ml inj IV PRN (15:30)
[2023-10-29] MEDS ORDERED: ondansetron 4mg rapidly disintigrating tab PO PRN (15:30)
[2023-10-29] MEDS ORDERED: HYDROcodone/acetaminophen 5mg/325mg tablet PO PRN (15:30)
[2023-10-29] MEDS ORDERED: acetaminophen 325mg tablet PO PRN ×2 (15:30)
[2023-10-29] MEDS: normal saline 1000ml 1,000 ML IV SCH (15:36)
[2023-10-29 15:59] LABS: MAGNESIUM 2.4 MG/DL (1.5-2.4); POTASSIUM 4.7 MMOL/L (3.5-5.1)
[2023-10-29 16:04] LABS: ALANINE AMINOTRANSFERASE 22 U/L (12-78); ALBUMIN 2.7 G/DL (3.4-5.0); ALBUMIN/GLOBULIN RATIO 0.9 (1.1-1.5); ALKALINE PHOSPHATASE 77 IU/L (46-116); ASPARTATE AMINO TRANSFERASE 11 U/L (10-37); BILIRUBIN,DIRECT 0.1 MG/DL (0-0.3); BILIRUBIN,TOTAL 0.6 MG/DL (0.1-1.0); CREATINE KINASE 35 U/L (39-308); TOTAL PROTEIN 5.8 G/DL (6.4-8.2)
[2023-10-29] MEDS ORDERED: PANT40TA54 PO (16:09)
[2023-10-29] MEDS ORDERED: INSU100I39 SQ (16:09)
[2023-10-29] MEDS: haloperidol lactate 5mg/ml inj IM ONE (16:24)
[2023-10-29 16:28] LABS: ANION GAP 25 (8-16); BLOOD UREA NITROGEN 50 MG/DL (7-18); BUN/CREATININE RATIO 28.2 (10.0-20.0); CALCIUM 7.7 MG/DL (8.5-10.1); CHLORIDE 103 MMOL/L (99-107); CREATININE 1.77 MG/DL (0.60-1.10); POTASSIUM 4.7 MMOL/L (3.5-5.1); SODIUM 139 MMOL/L (135-145); eCRCL 67 ML/MIN; eGFR 44 ML/MIN
[2023-10-29 16:34] LABS: ABG BASE EXCESS -11.9 mmol/L (-2.0-2.0); ABG HCO3 12.5 mmol/L (22.0-26.0); ABG OXYGEN SATURATION 97.3 % (94-97); ABG PCO2 (T) 25.2 mmHg (35.0-48.0); ABG PH (T) 7.315 (7.340-7.440); ABG PO2 (T) 102.7 mmHg (75.0-100.0); ALLEN'S TEST POSITIVE; FCOHb 0.3 % (0.0-3.9); FHHb 2.7 % (0.0-5.0); FMetHb 0.1 % (0.0-1.5); FO2Hb 96.9 % (94-97); MODE ROOM AIR; TOTAL HEMOGLOBIN 12.1 G/dl (14.0-17.9)
[2023-10-29 16:34] LABS: GLUCOSE 470 MG/DL (70-104)
[2023-10-29 16:35] LABS: TOTAL CARBON DIOXIDE 11.4 MMOL/L (24-32)
[2023-10-29 18:34] LABS: ALBUMIN 2.6 G/DL (3.4-5.0); ANION GAP 14 (8-16); BLOOD UREA NITROGEN 43 MG/DL (7-18); BUN/CREATININE RATIO 28.5 (10.0-20.0); CALCIUM 7.7 MG/DL (8.5-10.1); CHLORIDE 111 MMOL/L (99-107); CREATININE 1.51 MG/DL (0.60-1.10); GLUCOSE 293 MG/DL (70-104); POTASSIUM 4.1 MMOL/L (3.5-5.1); SODIUM 144 MMOL/L (135-145); TOTAL CARBON DIOXIDE 19.2 MMOL/L (24-32); eCRCL 78 ML/MIN; eGFR 53 ML/MIN
[2023-10-29 19:30] VITALS: BP 155/107; PULSE 101; RESP 18; TEMP 97.8; O2SAT 98
[2023-10-29 20:00] VITALS: RESP 17; O2SAT 96
[2023-10-29] MEDS ORDERED: K and/or MAG REPLACEMENT MC SCH (20:00)
[2023-10-29] MEDS: K and/or MAG REPLACEMENT MC SCH (20:00)
[2023-10-29] MEDS: docusate sod 100mg capsule PO SCH (20:00)
[2023-10-29] MEDS: potassium CL 20mEq in D5-1/2NS 1,000 ML IV PRN (20:02)
[2023-10-29] MEDS ORDERED: temazepam 15mg capsule PO PRN (21:00)
[2023-10-29] MEDS: heparin, porcine 5000 units/ml vial SQ SCH (22:16)
[2023-10-29 22:19] VITALS: BP 140/81; PULSE 94; RESP 12; TEMP 97.9; O2SAT 96
[2023-10-29 22:21] LABS: ALANINE AMINOTRANSFERASE 21 U/L (12-78); ALBUMIN 2.6 G/DL (3.4-5.0); ALBUMIN/GLOBULIN RATIO 0.9 (1.1-1.5); ALKALINE PHOSPHATASE 64 IU/L (46-116); ANION GAP 10 (8-16); ASPARTATE AMINO TRANSFERASE 8 U/L (10-37); BILIRUBIN,TOTAL 0.5 MG/DL (0.1-1.0); BLOOD UREA NITROGEN 38 MG/DL (7-18); BUN/CREATININE RATIO 27.1 (10.0-20.0); CALCIUM 8.1 MG/DL (8.5-10.1); CHLORIDE 114 MMOL/L (99-107); GLUCOSE 114 MG/DL (70-104); POTASSIUM 3.9 MMOL/L (3.5-5.1); SODIUM 147 MMOL/L (135-145); TOTAL CARBON DIOXIDE 23.4 MMOL/L (24-32); TOTAL PROTEIN 5.4 G/DL (6.4-8.2); eCRCL 84 ML/MIN; eGFR 58 ML/MIN
[2023-10-30] VITALS (8 sets, daily range): BP systolic 132–170; BP diastolic 73–98; PULSE 66–92; RESP 13–19; TEMP 97.6–98.8; O2SAT 95–99
[2023-10-30] MEDS: ondansetron/PF 4mg/2ml inj IV PRN (03:37)
[2023-10-30 03:40] LABS: BASOPHILS % (AUTO) 0.2 % (0-1); EOSINOPHILS % (AUTO) 0.1 % (0-6); HEMATOCRIT 31.8 % (42.0-52.0); HEMOGLOBIN 10.8 g/dl (14.0-17.9); LYMPHOCYTES # (AUTO) 1.7 X10'3 (1.1-4.8); LYMPHOCYTES % (AUTO) 15.8 % (21-51); MEAN CORPUSCULAR HEMOGLOBIN 30.9 PG (27.0-31.0); MEAN CORPUSCULAR HGB CONC 33.8 g/dL (33.0-36.5); MEAN CORPUSCULAR VOLUME 91.3 FL (78-98); MEAN PLATELET VOLUME 7.2 FL (7.4-10.4); MONOCYTES # (AUTO) 1.1 X10'3 (0-0.9); MONOCYTES % (AUTO) 9.7 % (2-12); NEUTROPHILS % (AUTO) 74.2 % (42-75); PLATELET COUNT 355 X10'3 (140-440); RED BLOOD COUNT 3.49 X10'6 (4.70-6.10); RED CELL DISTRIBUTION WIDTH 13.1 % (11.5-14.5); WHITE BLOOD COUNT 10.8 X10'3 (4.5-11.0)
[2023-10-30 03:55] LABS: ALANINE AMINOTRANSFERASE 16 U/L (12-78); ALBUMIN 2.4 G/DL (3.4-5.0); ALBUMIN/GLOBULIN RATIO 0.9 (1.1-1.5); ALKALINE PHOSPHATASE 58 IU/L (46-116); ANION GAP 13 (8-16); ASPARTATE AMINO TRANSFERASE 13 U/L (10-37); BILIRUBIN,TOTAL 0.7 MG/DL (0.1-1.0); BLOOD UREA NITROGEN 33 MG/DL (7-18); BUN/CREATININE RATIO 28.9 (10.0-20.0); CHLORIDE 112 MMOL/L (99-107); CHOL/HDL RATIO 2.3 (0.00-4.99); CHOLESTEROL 205 MG/DL (0-200); CREATININE 1.14 MG/DL (0.60-1.10); GLUCOSE 218 MG/DL (70-104); HDL CHOLESTEROL 88 MG/DL (35-60); LDL CHOLESTEROL 96 MG/DL (50-100); MAGNESIUM 2.3 MG/DL (1.5-2.4); PHOSPHORUS 2.4 MG/DL (2.3-4.5); POTASSIUM 4.3 MMOL/L (3.5-5.1); SODIUM 144 MMOL/L (135-145); TOTAL CARBON DIOXIDE 19.2 MMOL/L (24-32); TRIGLYCERIDES 48 MG/DL (20-135); eCRCL 103 ML/MIN; eGFR 74 ML/MIN
[2023-10-30] MEDS: pantoprazole 40MG/NS 100ML BAG 100 ML IV SCH (07:46)
[2023-10-30 08:02] LABS: ALANINE AMINOTRANSFERASE 16 U/L (12-78); ALBUMIN 2.4 G/DL (3.4-5.0); ALBUMIN/GLOBULIN RATIO 0.9 (1.1-1.5); ALKALINE PHOSPHATASE 67 IU/L (46-116); ANION GAP 11 (8-16); ASPARTATE AMINO TRANSFERASE 18 U/L (10-37); BILIRUBIN,TOTAL 0.9 MG/DL (0.1-1.0); BLOOD UREA NITROGEN 29 MG/DL (7-18); BUN/CREATININE RATIO 25.7 (10.0-20.0); CALCIUM 7.9 MG/DL (8.5-10.1); CHLORIDE 109 MMOL/L (99-107); CREATININE 1.13 MG/DL (0.60-1.10); GLUCOSE 259 MG/DL (70-104); POTASSIUM 4.2 MMOL/L (3.5-5.1); SODIUM 141 MMOL/L (135-145); TOTAL CARBON DIOXIDE 20.6 MMOL/L (24-32); TOTAL PROTEIN 5.1 G/DL (6.4-8.2); eCRCL 104 ML/MIN; eGFR 74 ML/MIN
[2023-10-30] MEDS: insulin Lispro (HumaLOG) vial - multi-dose SQ SCH ×2 (09:18→21:52)
[2023-10-30] MEDS ORDERED: DEXTROSE 15 GM of carb/4 tabs (each vial/BOTTLE has 4 tablets) PO PRN ×2 (09:25)
[2023-10-30] MEDS ORDERED: dextrose 50%-water 50ml dispensing syringe IV PRN ×2 (09:25)
[2023-10-30] MEDS ORDERED: glucagon, human recombinant 1mg kit SUBCUT PRN (09:25)
[2023-10-30] MEDS: MESSAGE TO PHARMACY PO ONE (09:48)
[2023-10-30] MEDS: metoclopramide 5 mg/ml inj IV PRN (10:26)
[2023-10-30] MEDS: normal saline 1000ml 1,000 ML IV SCH (10:30)
[2023-10-30] MEDS: insulin glargine (Lantus) pen - multi-dose SQ SCH (21:52)
[2023-10-31 02:00] VITALS: BP 125/81; PULSE 62; RESP 15; TEMP 97.7; O2SAT 99
[2023-10-31 06:42] LABS: BASOPHILS # (AUTO) 0.1 X10'3 (0-0.2); BASOPHILS % (AUTO) 0.8 % (0-1); EOSINOPHILS # (AUTO) 0.1 X10'3 (0-0.9); EOSINOPHILS % (AUTO) 1.1 % (0-6); HEMATOCRIT 31.7 % (42.0-52.0); LYMPHOCYTES # (AUTO) 2.8 X10'3 (1.1-4.8); LYMPHOCYTES % (AUTO) 35.2 % (21-51); MEAN CORPUSCULAR HEMOGLOBIN 31.2 PG (27.0-31.0); MEAN CORPUSCULAR HGB CONC 34.7 g/dL (33.0-36.5); MEAN CORPUSCULAR VOLUME 89.9 FL (78-98); MEAN PLATELET VOLUME 7.3 FL (7.4-10.4); MONOCYTES # (AUTO) 0.6 X10'3 (0-0.9); MONOCYTES % (AUTO) 7.9 % (2-12); NEUTROPHILS # (AUTO) 4.4 X10'3 (1.8-7.7); PLATELET COUNT 312 X10'3 (140-440); RED BLOOD COUNT 3.53 X10'6 (4.70-6.10); WHITE BLOOD COUNT 7.9 X10'3 (4.5-11.0)
[2023-10-31 06:58] LABS: ALANINE AMINOTRANSFERASE 19 U/L (12-78); ALBUMIN 2.1 G/DL (3.4-5.0); ALBUMIN/GLOBULIN RATIO 0.8 (1.1-1.5); ALKALINE PHOSPHATASE 60 IU/L (46-116); ANION GAP 6 (8-16); ASPARTATE AMINO TRANSFERASE 11 U/L (10-37); BILIRUBIN,TOTAL 1.2 MG/DL (0.1-1.0); BLOOD UREA NITROGEN 16 MG/DL (7-18); BUN/CREATININE RATIO 16.2 (10.0-20.0); CALCIUM 7.5 MG/DL (8.5-10.1); CHLORIDE 102 MMOL/L (99-107); CREATININE 0.99 MG/DL (0.60-1.10); GLUCOSE 206 MG/DL (70-104); MAGNESIUM 1.5 MG/DL (1.5-2.4); POTASSIUM 3.6 MMOL/L (3.5-5.1); SODIUM 134 MMOL/L (135-145); TOTAL CARBON DIOXIDE 25.7 MMOL/L (24-32); TOTAL PROTEIN 4.7 G/DL (6.4-8.2); eCRCL 119 ML/MIN; eGFR 87 ML/MIN
[2023-10-31 07:27] VITALS: BP 165/100; PULSE 82; RESP 16; TEMP 99; O2SAT 96
[2023-10-31] MEDS: lisinopril 20mg tablet PO SCH (11:08)
[2023-10-31 12:20] VITALS: BP 149/95; PULSE 75; RESP 15; TEMP 99.9; O2SAT 99
[2023-10-31] MEDS ORDERED: ONDA8TAB13 PO (12:25)
[2023-10-31] MEDS ORDERED: PROM25TA14 PO (12:26)
[2023-11-01] MEDS ORDERED: pantoprazole 40mg Tablet.DR PO SCH (07:30)
== END 2023-10-31 14:00 | disposition home or self-care (01) | DRG 420 ==
LOC: ER 13:11 → ED HOLD 15:31 → EDBEDREQ 18:20 → PCU 3S 19:00
PROVIDERS: ADMIT Family Medicine; ATTEND Family Medicine
DX: E10.10 Type 1 diabetes mellitus with ketoacidosis without coma (principal); N17.9 Acute kidney failure, unspecified; K92.2 Gastrointestinal hemorrhage, unspecified; E78.5 Hyperlipidemia, unspecified; E86.0 Dehydration; E87.5 Hyperkalemia; I10 Essential (primary) hypertension; Z79.899 Other long term (current) drug therapy; Z88.2 Allergy status to sulfonamides; Z56.0 Unemployment, unspecified
CPT/HCPCS: 36415; 36600; 71045; 80048; 80053; 80061; 80076; 80305; 80320; 81001; 82271; 82550; 82803; 82948; 83036; 83605; 83690; 83735; 84100; 84132; 84484; 85018; 85025; 85610; 85730; 86885; 86900; 86901; 87040; 87081; 93005; 99291; C9113; G0378; J1630; J1644; J1815; J2270; J2405; J2765; J3480; J7030

== ENCOUNTER 2023-11-02 15:33 | Inpatient (IN) | payer MEDICAID ==
[~2023-11-02] VITALS: Ht 182.9 cm; Wt 81.8 kg
[~2023-11-02 15:33] MED LIST changes: -INSU100I31 SQ; +INSU100I39 SQ; -INSU100V40 SQ; -METO5TAB98 PO; -ONDA4TAB12 PO; +ONDA8TAB13 PO; -PANT20TA18 PO; +PANT40TA54 PO; -PROM25SU9 RC; +PROM25TA14 PO
[2023-11-02 16:28] LABS: BILIRUBIN,URINE NEGATIVE (Neg); CLARITY,URINE CLEAR (Clear); COLOR,URINE YELLOW (Yellow); GLUCOSE, URINE 500 mg/dl (Neg); KETONES,URINE >=80 mg/dl (Neg); LEUKOCYTE ESTERASE ,URINE NEGATIVE (Neg); NITRITES, URINE NEGATIVE (Neg); OCCULT BLOOD,URINE TRACE-INTACT (Neg); PH,URINE 5.5 (4.8-8.0); PROTEIN,URINE 30 mg/dl (Neg); UROBILINOGEN,URINE 0.2 E.U/dL (0.2-1.0)
[2023-11-02 16:34] LABS: HYALINE CASTS 0-3 /LPF (NEGATIVE); SQUAMOUS EPITHELIAL CELL,UR FEW /LPF (FEW); UA COLLECTION TYPE CLN CATCH MIDSTREAM
[2023-11-02 16:35] LABS: BACTERIA,URINE NONE SEEN /HPF (Neg); BASOPHILS % (AUTO) 0.3 % (0-1); EOSINOPHILS % (AUTO) 0.1 % (0-6); HEMOGLOBIN 13.3 g/dl (14.0-17.9); LYMPHOCYTES # (AUTO) 1.5 X10'3 (1.1-4.8); MEAN CORPUSCULAR HEMOGLOBIN 29.9 PG (27.0-31.0); MEAN CORPUSCULAR HGB CONC 33.2 g/dL (33.0-36.5); MEAN PLATELET VOLUME 7.4 FL (7.4-10.4); MONOCYTES # (AUTO) 0.9 X10'3 (0-0.9); MONOCYTES % (AUTO) 5.2 % (2-12); NEUTROPHILS # (AUTO) 14.4 X10'3 (1.8-7.7); NEUTROPHILS % (AUTO) 85.4 % (42-75); PLATELET COUNT 455 X10'3 (140-440); RBC,URINE 0-2 /HPF (0-2); RED BLOOD COUNT 4.44 X10'6 (4.70-6.10); RED CELL DISTRIBUTION WIDTH 13.2 % (11.5-14.5); WBC,URINE 0-4 /HPF (0-4); WHITE BLOOD COUNT 16.9 X10'3 (4.5-11.0)
[2023-11-02 16:45] LABS: ALANINE AMINOTRANSFERASE 23 U/L (12-78); ALBUMIN/GLOBULIN RATIO 0.9 (1.1-1.5); ALKALINE PHOSPHATASE 90 IU/L (46-116); ANION GAP 31 (8-16); ASPARTATE AMINO TRANSFERASE 13 U/L (10-37); BILIRUBIN,TOTAL 0.5 MG/DL (0.1-1.0); BLOOD UREA NITROGEN 22 MG/DL (7-18); BUN/CREATININE RATIO 15.4 (10.0-20.0); CHLORIDE 97 MMOL/L (99-107); CREATININE 1.43 MG/DL (0.60-1.10); GLUCOSE 324 MG/DL (70-104); LIPASE 32 U/L (16-77); POTASSIUM 4.6 MMOL/L (3.5-5.1); SODIUM 134 MMOL/L (135-145); TOTAL PROTEIN 6.2 G/DL (6.4-8.2); eCRCL 80 ML/MIN; eGFR 57 ML/MIN
[2023-11-02 16:57] LABS: TOTAL CARBON DIOXIDE 6.4 MMOL/L (24-32)
[2023-11-02] MEDS: metoclopramide 5 mg/ml inj IV ONE (17:06)
[2023-11-02] MEDS: CefTRIAXone 2gm/D5W 50ml BAG 50 ML IV ONE (17:06)
[2023-11-02] MEDS: morphine 4 MG/ML inj SYRINge IV ONE (17:06)
[2023-11-02] MEDS: normal saline 1000ML IV soln IV ONE (17:07)
[2023-11-02] MEDS ORDERED: dextrose 50%-water 50ml dispensing syringe IV PRN ×2 (17:15→20:35)
[2023-11-02 17:24] LABS: ABG BASE EXCESS -17.1 mmol/L (-2.0-2.0); ABG HCO3 6.3 mmol/L (22.0-26.0); ABG OXYGEN SATURATION 98.1 % (94-97); ABG PCO2 (T) 13.1 mmHg (35.0-48.0); ABG PH (T) 7.301 (7.340-7.440); ABG PO2 (T) 112.3 mmHg (75.0-100.0); ALLEN'S TEST POSITIVE; FCOHb 0.3 % (0.0-3.9); FHHb 1.9 % (0.0-5.0); FLOW 0 L/min; FMetHb 0.2 % (0.0-1.5); FO2Hb 97.6 % (94-97); MODE ROOM AIR; PATIENT TEMPERATURE 37.1; TOTAL HEMOGLOBIN 13.8 G/dl (14.0-17.9)
[2023-11-02 17:53] LABS: ETHANOL < 10 MG/DL (<10)
[2023-11-02] MEDS: Insulin Reg/NS 100units/100mL 100 ML IV SCH (18:33)
[2023-11-02] MEDS: ondansetron/PF 4mg/2ml inj IV ONE (19:09)
[2023-11-02 19:20] LABS: URINE AMPHETAMINE SCREEN NEGATIVE (Neg); URINE BARBITUATE SCREEN NEGATIVE (Neg); URINE BENZODIAZEPINES SCREEN NEGATIVE (Neg); URINE CANNABINOID SCREEN NEGATIVE (Neg); URINE COCAINE SCREEN NEGATIVE (Neg); URINE METHADONE SCREEN NEGATIVE (Neg); URINE OPIATE SCREEN NEGATIVE (Neg); URINE PHENCYCLIDINE SCREEN NEGATIVE (Neg)
[2023-11-02] MEDS: MESSAGE TO PHARMACY PO ONE (20:35)
[2023-11-02] MEDS ORDERED: acetaminophen 325mg tablet PO PRN (20:35)
[2023-11-02] MEDS ORDERED: insulin regular, human U-100 3ml vial - multi-dose IV PRN (20:35)
[2023-11-02] MEDS ORDERED: glucagon, human recombinant 1mg kit SUBCUT PRN (20:35)
[2023-11-02] MEDS ORDERED: magnesium 4gm in 100ml NS 100 ML IV PRN (20:35)
[2023-11-02] MEDS ORDERED: magnesium Cl slow-release 64mg tablet PO PRN (20:35)
[2023-11-02] MEDS ORDERED: insulin Lispro (HumaLOG) vial - multi-dose SQ SCH (20:35)
[2023-11-02] MEDS ORDERED: Insulin Reg/NS 100units/100mL 100 ML IV SCH (20:35)
[2023-11-02] MEDS ORDERED: magnesium hydroxide 30ml (MOM) UD suspension PO PRN (20:35)
[2023-11-02] MEDS ORDERED: potassium Cl 20 mEq SR tablet PO PRN ×2 (20:35)
[2023-11-02] MEDS ORDERED: mag hydrox/Alum hydrox/simeth 30ml oral suspension PO PRN (20:35)
[2023-11-02] MEDS ORDERED: DEXTROSE 15 GM of carb/4 tabs (each vial/BOTTLE has 4 tablets) PO PRN ×2 (20:35)
[2023-11-02] MEDS: dextrose 5%-water 1,000 ML IV SCH (20:45)
[2023-11-02] MEDS: normal saline 1000ml 1,000 ML IV SCH (20:45)
[2023-11-02] MEDS: insulin glargine (Lantus) pen - multi-dose SQ SCH (21:00)
[2023-11-02] MEDS: LidoCAINE 2% Topical Jelly 11mL syringe TOP ONE (21:00)
[2023-11-02] MEDS: ondansetron/PF 4mg/2ml inj IV PRN (22:25)
[2023-11-02 23:10] VITALS: BP 134/97; PULSE 105; TEMP 98.5; O2SAT 100
[2023-11-02 23:22] LABS: ALANINE AMINOTRANSFERASE 16 U/L (12-78); ALBUMIN 2.2 G/DL (3.4-5.0); ALBUMIN/GLOBULIN RATIO 0.8 (1.1-1.5); ALKALINE PHOSPHATASE 76 IU/L (46-116); ANION GAP 13 (8-16); ASPARTATE AMINO TRANSFERASE 10 U/L (10-37); BILIRUBIN,TOTAL 0.4 MG/DL (0.1-1.0); BLOOD UREA NITROGEN 17 MG/DL (7-18); BUN/CREATININE RATIO 15.7 (10.0-20.0); CALCIUM 6.7 MG/DL (8.5-10.1); CHLORIDE 108 MMOL/L (99-107); CREATININE 1.08 MG/DL (0.60-1.10); GLUCOSE 148 MG/DL (70-104); POTASSIUM 3.6 MMOL/L (3.5-5.1); SODIUM 137 MMOL/L (135-145); TOTAL CARBON DIOXIDE 16.4 MMOL/L (24-32); TOTAL PROTEIN 4.8 G/DL (6.4-8.2); eCRCL 106 ML/MIN; eGFR 78 ML/MIN
[2023-11-02] MEDS ORDERED: Potassium Cl inj 20 MEQ in dextrose 5%-water 990 ML IV SCH (23:35)
[2023-11-03] VITALS (7 sets, daily range): BP systolic 126–163; BP diastolic 72–97; PULSE 75–98; RESP 15–20; TEMP 97.5–98.8; O2SAT 96–99
[2023-11-03] MEDS: POTASSIUM Cl 20eq-D5W 1000mL 1,000 ML IV SCH (01:08)
[2023-11-03] MEDS: metoclopramide 5 mg/ml inj IV PRN (01:13)
[2023-11-03] MEDS: dextrose 50%-water 50ml dispensing syringe IV PRN (02:26)
[2023-11-03 03:32] LABS: BASOPHILS % (AUTO) 0.3 % (0-1); EOSINOPHILS # (AUTO) 0.1 X10'3 (0-0.9); EOSINOPHILS % (AUTO) 0.9 % (0-6); HEMOGLOBIN 10.7 g/dl (14.0-17.9); LYMPHOCYTES % (AUTO) 19.5 % (21-51); MEAN CORPUSCULAR HEMOGLOBIN 30.5 PG (27.0-31.0); MEAN CORPUSCULAR HGB CONC 34.6 g/dL (33.0-36.5); MEAN CORPUSCULAR VOLUME 88.2 FL (78-98); MEAN PLATELET VOLUME 7.1 FL (7.4-10.4); MONOCYTES # (AUTO) 0.9 X10'3 (0-0.9); MONOCYTES % (AUTO) 9.1 % (2-12); NEUTROPHILS # (AUTO) 7.3 X10'3 (1.8-7.7); NEUTROPHILS % (AUTO) 70.2 % (42-75); PLATELET COUNT 339 X10'3 (140-440); RED BLOOD COUNT 3.52 X10'6 (4.70-6.10); RED CELL DISTRIBUTION WIDTH 13.4 % (11.5-14.5); WHITE BLOOD COUNT 10.4 X10'3 (4.5-11.0)
[2023-11-03 04:08] LABS: ALANINE AMINOTRANSFERASE 18 U/L (12-78); ALBUMIN 2.3 G/DL (3.4-5.0); ALKALINE PHOSPHATASE 64 IU/L (46-116); ANION GAP 12 (8-16); ASPARTATE AMINO TRANSFERASE 9 U/L (10-37); BILIRUBIN,TOTAL 0.4 MG/DL (0.1-1.0); BLOOD UREA NITROGEN 14 MG/DL (7-18); BUN/CREATININE RATIO 14.6 (10.0-20.0); CALCIUM 7.4 MG/DL (8.5-10.1); CHLORIDE 106 MMOL/L (99-107); CREATININE 0.96 MG/DL (0.60-1.10); GLUCOSE 147 MG/DL (70-104); PHOSPHORUS 1.3 MG/DL (2.3-4.5); POTASSIUM 3.1 MMOL/L (3.5-5.1); SODIUM 137 MMOL/L (135-145); TOTAL CARBON DIOXIDE 18.6 MMOL/L (24-32); TOTAL PROTEIN 4.7 G/DL (6.4-8.2); eCRCL 119 ML/MIN; eGFR 90 ML/MIN
[2023-11-03] MEDS: docusate sod 100mg capsule PO SCH (08:00)
[2023-11-03] MEDS: insulin glargine (Lantus) pen - multi-dose SQ SCH (08:00)
[2023-11-03] MEDS: pantoprazole 40 MG vial IV SCH (08:53)
[2023-11-03] MEDS: heparin, porcine 5000 units/ml vial SQ SCH (08:54)
[2023-11-03] MEDS: morphine 2 MG/ML inj. syringe IV PRN (09:29)
[2023-11-03] MEDS: potassium Cl 40MEQ/1/2NS 520ml 520 ML IV PRN (10:43)
[2023-11-03 12:44] LABS: ALANINE AMINOTRANSFERASE 17 U/L (12-78); ALBUMIN 2.3 G/DL (3.4-5.0); ALBUMIN/GLOBULIN RATIO 0.9 (1.1-1.5); ALKALINE PHOSPHATASE 70 IU/L (46-116); ANION GAP 14 (8-16); ASPARTATE AMINO TRANSFERASE 6 U/L (10-37); BILIRUBIN,TOTAL 0.6 MG/DL (0.1-1.0); BLOOD UREA NITROGEN 12 MG/DL (7-18); BUN/CREATININE RATIO 12.8 (10.0-20.0); CALCIUM 7.6 MG/DL (8.5-10.1); CHLORIDE 103 MMOL/L (99-107); CREATININE 0.94 MG/DL (0.60-1.10); GLUCOSE 150 MG/DL (70-104); POTASSIUM 3.3 MMOL/L (3.5-5.1); SODIUM 134 MMOL/L (135-145); TOTAL CARBON DIOXIDE 17.3 MMOL/L (24-32); TOTAL PROTEIN 4.8 G/DL (6.4-8.2); eCRCL 122 ML/MIN; eGFR > 90 ML/MIN
[2023-11-03] MEDS: CefTRIAXone/D5W-Rocephin 1gm 50 ML IV SCH (17:06)
[2023-11-03] MEDS: lisinopril 10 MG tablet PO SCH (17:54)
[2023-11-03] MEDS: lactose-reduced food (Ensure Enlive) - 237ml bottle PO SCH (18:00)
[2023-11-03 18:07] LABS: ALBUMIN 2.3 G/DL (3.4-5.0); ANION GAP 17 (8-16); BLOOD UREA NITROGEN 10 MG/DL (7-18); BUN/CREATININE RATIO 12.2 (10.0-20.0); CALCIUM 7.6 MG/DL (8.5-10.1); CHLORIDE 100 MMOL/L (99-107); CREATININE 0.82 MG/DL (0.60-1.10); GLUCOSE 212 MG/DL (70-104); MAGNESIUM 1.5 MG/DL (1.5-2.4); PHOSPHORUS 1.3 MG/DL (2.3-4.5); POTASSIUM 3.5 MMOL/L (3.5-5.1); SODIUM 131 MMOL/L (135-145); eCRCL 139 ML/MIN; eGFR > 90 ML/MIN
[2023-11-03 18:10] LABS: TOTAL CARBON DIOXIDE 13.9 MMOL/L (24-32)
[2023-11-03] MEDS ORDERED: Neutra Phos packet PO PRN (20:15)
[2023-11-03] MEDS ORDERED: sodium phosphate inj. 15 MMOL in dextrose 5%-water 250 ML IV PRN (20:15)
[2023-11-03] MEDS: proCHLORperazine 10 MG/2 ml inj IV PRN (21:48)
[2023-11-03 22:03] LABS: ALBUMIN 2.3 G/DL (3.4-5.0); ANION GAP 15 (8-16); BLOOD UREA NITROGEN 9 MG/DL (7-18); BUN/CREATININE RATIO 10.7 (10.0-20.0); CALCIUM 7.6 MG/DL (8.5-10.1); CHLORIDE 99 MMOL/L (99-107); CREATININE 0.84 MG/DL (0.60-1.10); GLUCOSE 213 MG/DL (70-104); POTASSIUM 3.3 MMOL/L (3.5-5.1); SODIUM 132 MMOL/L (135-145); TOTAL CARBON DIOXIDE 18.2 MMOL/L (24-32); eCRCL 136 ML/MIN; eGFR > 90 ML/MIN
[2023-11-03] MEDS: sodium phosphate inj. 30 MMOL in dextrose 5%-water 250 ML IV PRN (23:26)
[2023-11-04] VITALS (9 sets, daily range): BP systolic 97–149; BP diastolic 78–93; PULSE 60–81; RESP 12–20; TEMP 97.4–97.7; O2SAT 96–99
[2023-11-04 07:06] LABS: BASOPHILS % (AUTO) 0.2 % (0-1); EOSINOPHILS # (AUTO) 0.1 X10'3 (0-0.9); EOSINOPHILS % (AUTO) 1.4 % (0-6); HEMATOCRIT 31.1 % (42.0-52.0); HEMOGLOBIN 10.7 g/dl (14.0-17.9); LYMPHOCYTES # (AUTO) 1.9 X10'3 (1.1-4.8); LYMPHOCYTES % (AUTO) 25.3 % (21-51); MEAN CORPUSCULAR HEMOGLOBIN 30.5 PG (27.0-31.0); MEAN CORPUSCULAR HGB CONC 34.5 g/dL (33.0-36.5); MEAN CORPUSCULAR VOLUME 88.5 FL (78-98); MEAN PLATELET VOLUME 7.1 FL (7.4-10.4); MONOCYTES # (AUTO) 0.6 X10'3 (0-0.9); NEUTROPHILS # (AUTO) 4.8 X10'3 (1.8-7.7); NEUTROPHILS % (AUTO) 65.1 % (42-75); PLATELET COUNT 317 X10'3 (140-440); RED BLOOD COUNT 3.52 X10'6 (4.70-6.10); RED CELL DISTRIBUTION WIDTH 13.1 % (11.5-14.5); WHITE BLOOD COUNT 7.4 X10'3 (4.5-11.0)
[2023-11-04 07:23] LABS: ALANINE AMINOTRANSFERASE 18 U/L (12-78); ALBUMIN/GLOBULIN RATIO 0.8 (1.1-1.5); ALKALINE PHOSPHATASE 70 IU/L (46-116); ANION GAP 10 (8-16); ASPARTATE AMINO TRANSFERASE 7 U/L (10-37); BILIRUBIN,TOTAL 0.5 MG/DL (0.1-1.0); BLOOD UREA NITROGEN 7 MG/DL (7-18); BUN/CREATININE RATIO 9.2 (10.0-20.0); CALCIUM 7.5 MG/DL (8.5-10.1); CHLORIDE 102 MMOL/L (99-107); CREATININE 0.76 MG/DL (0.60-1.10); GLUCOSE 273 MG/DL (70-104); POTASSIUM 3.4 MMOL/L (3.5-5.1); SODIUM 134 MMOL/L (135-145); TOTAL CARBON DIOXIDE 22.2 MMOL/L (24-32); TOTAL PROTEIN 4.5 G/DL (6.4-8.2); eCRCL 150 ML/MIN; eGFR > 90 ML/MIN
[2023-11-04] MEDS ORDERED: sodium phosphate inj. 30 MMOL in dextrose 5%-water 250 ML IV PRN (08:15)
[2023-11-04] MEDS: normal saline 1000ml 1,000 ML IV SCH ×2 (08:15)
[2023-11-04] MEDS ORDERED: potassium Cl 40MEQ/1/2NS 520ml 520 ML IV PRN (08:15)
[2023-11-04] MEDS ORDERED: sodium bicarbonate (8.4%) inj. 100 MEQ in dextrose 5% water 500ml 500 ML IV PRN (08:15)
[2023-11-04] MEDS ORDERED: sodium bicarbonate (8.4%) inj. 50 MEQ in dextrose 5% water 500ml 250 ML IV PRN (08:15)
[2023-11-04] MEDS ORDERED: insulin regular, human U-100 3ml vial - multi-dose IV PRN (08:15)
[2023-11-04] MEDS ORDERED: Neutra Phos packet PO PRN (08:15)
[2023-11-04] MEDS ORDERED: potassium Cl 20 mEq SR tablet PO PRN ×2 (08:15)
[2023-11-04] MEDS: Insulin Reg/NS 100units/100mL 100 ML IV SCH (08:44)
[2023-11-04 10:46] LABS: ALBUMIN 2.1 G/DL (3.4-5.0); ANION GAP 11 (8-16); BLOOD UREA NITROGEN 6 MG/DL (7-18); BUN/CREATININE RATIO 8.1 (10.0-20.0); CALCIUM 7.7 MG/DL (8.5-10.1); CHLORIDE 100 MMOL/L (99-107); CREATININE 0.74 MG/DL (0.60-1.10); GLUCOSE 277 MG/DL (70-104); PHOSPHORUS 1.9 MG/DL (2.3-4.5); POTASSIUM 3.3 MMOL/L (3.5-5.1); SODIUM 133 MMOL/L (135-145); TOTAL CARBON DIOXIDE 21.9 MMOL/L (24-32); eCRCL 154 ML/MIN; eGFR > 90 ML/MIN
[2023-11-04] MEDS: potassium CL 20mEq in D5-1/2NS 1,000 ML IV PRN (11:29)
[2023-11-04 14:19] LABS: ALBUMIN 2.2 G/DL (3.4-5.0); ANION GAP 12 (8-16); BLOOD UREA NITROGEN 6 MG/DL (7-18); CALCIUM 7.7 MG/DL (8.5-10.1); CHLORIDE 99 MMOL/L (99-107); CREATININE 0.75 MG/DL (0.60-1.10); GLUCOSE 243 MG/DL (70-104); PHOSPHORUS 1.6 MG/DL (2.3-4.5); POTASSIUM 3.3 MMOL/L (3.5-5.1); SODIUM 134 MMOL/L (135-145); eCRCL 152 ML/MIN; eGFR > 90 ML/MIN
[2023-11-04] MEDS: sodium phosphate inj. 15 MMOL in dextrose 5%-water 250 ML IV PRN (15:21)
[2023-11-04] MEDS: K and/or MAG REPLACEMENT MC SCH (20:00)
[2023-11-04 20:09] LABS: ANION GAP 7 (8-16); BLOOD UREA NITROGEN 5 MG/DL (7-18); BUN/CREATININE RATIO 6.6 (10.0-20.0); CALCIUM 7.2 MG/DL (8.5-10.1); CHLORIDE 95 MMOL/L (99-107); CREATININE 0.76 MG/DL (0.60-1.10); GLUCOSE 303 MG/DL (70-104); POTASSIUM 3.6 MMOL/L (3.5-5.1); SODIUM 128 MMOL/L (135-145); TOTAL CARBON DIOXIDE 25.7 MMOL/L (24-32); eCRCL 150 ML/MIN; eGFR > 90 ML/MIN
[2023-11-04] MEDS: insulin glargine (Lantus) pen - multi-dose SQ ONE (21:03)
[2023-11-05 02:00] VITALS: BP 145/100; PULSE 64; RESP 13; TEMP 97.3; O2SAT 97
[2023-11-05 06:04] LABS: ALANINE AMINOTRANSFERASE 17 U/L (12-78); ALBUMIN 2.2 G/DL (3.4-5.0); ALBUMIN/GLOBULIN RATIO 0.8 (1.1-1.5); ALKALINE PHOSPHATASE 86 IU/L (46-116); ANION GAP 7 (8-16); ASPARTATE AMINO TRANSFERASE 11 U/L (10-37); BILIRUBIN,TOTAL 0.6 MG/DL (0.1-1.0); BLOOD UREA NITROGEN 4 MG/DL (7-18); BUN/CREATININE RATIO 6.6 (10.0-20.0); CALCIUM 7.9 MG/DL (8.5-10.1); CHLORIDE 100 MMOL/L (99-107); CREATININE 0.61 MG/DL (0.60-1.10); GLUCOSE 98 MG/DL (70-104); PHOSPHORUS 2.6 MG/DL (2.3-4.5); SODIUM 136 MMOL/L (135-145); TOTAL CARBON DIOXIDE 29.2 MMOL/L (24-32); TOTAL PROTEIN 4.8 G/DL (6.4-8.2); eCRCL 187 ML/MIN; eGFR > 90 ML/MIN
[2023-11-05 06:08] LABS: BASOPHILS % (AUTO) 0.3 % (0-1); EOSINOPHILS # (AUTO) 0.2 X10'3 (0-0.9); EOSINOPHILS % (AUTO) 2.6 % (0-6); HEMATOCRIT 33.5 % (42.0-52.0); HEMOGLOBIN 11.7 g/dl (14.0-17.9); LYMPHOCYTES # (AUTO) 2.2 X10'3 (1.1-4.8); LYMPHOCYTES % (AUTO) 36.1 % (21-51); MEAN CORPUSCULAR HEMOGLOBIN 30.4 PG (27.0-31.0); MEAN CORPUSCULAR HGB CONC 34.9 g/dL (33.0-36.5); MEAN PLATELET VOLUME 7.5 FL (7.4-10.4); MONOCYTES # (AUTO) 0.6 X10'3 (0-0.9); MONOCYTES % (AUTO) 9.1 % (2-12); NEUTROPHILS # (AUTO) 3.2 X10'3 (1.8-7.7); NEUTROPHILS % (AUTO) 51.9 % (42-75); PLATELET COUNT 318 X10'3 (140-440); RED BLOOD COUNT 3.85 X10'6 (4.70-6.10); RED CELL DISTRIBUTION WIDTH 13.1 % (11.5-14.5); WHITE BLOOD COUNT 6.1 X10'3 (4.5-11.0)
[2023-11-05 06:09] VITALS: BP 153/114; PULSE 84
[2023-11-05 06:13] LABS: POTASSIUM 2.7 MMOL/L (3.5-5.1)
[2023-11-05] MEDS: potassium Cl 40MEQ/1/2NS 520ml 520 ML IV PRN (07:19)
[2023-11-05 08:00] VITALS: RESP 17; O2SAT 98
[2023-11-05] MEDS ORDERED: glucagon, human recombinant 1mg kit SUBCUT PRN (08:55)
[2023-11-05] MEDS ORDERED: dextrose 50%-water 50ml dispensing syringe IV PRN ×2 (08:55)
[2023-11-05] MEDS ORDERED: DEXTROSE 15 GM of carb/4 tabs (each vial/BOTTLE has 4 tablets) PO PRN ×2 (08:55)
[2023-11-05] MEDS: MESSAGE TO PHARMACY PO ONE (09:33)
[2023-11-05] MEDS: insulin Lispro (HumaLOG) vial - multi-dose SQ SCH (10:01)
[2023-11-05] MEDS ORDERED: magnesium Cl slow-release 64mg tablet PO PRN (10:05)
[2023-11-05] MEDS ORDERED: magnesium 2GM in 50ml NS 50 ML IV PRN (10:05)
[2023-11-05] MEDS ORDERED: potassium Cl 20 mEq SR tablet PO PRN ×2 (10:05)
[2023-11-05] MEDS ORDERED: magnesium 4gm in 100ml NS 100 ML IV PRN (10:05)
[2023-11-05] MEDS ORDERED: potassium Cl 40MEQ/1/2NS 520ml 520 ML IV PRN (10:05)
[2023-11-05] MEDS ORDERED: METO-292 PO (11:56)
[2023-11-05] MEDS ORDERED: K and/or MAG REPLACEMENT MC SCH (20:00)
[2023-11-05] MEDS ORDERED: ondansetron/PF 4mg/2ml inj IV SCH (20:00)
[2023-11-05] MEDS ORDERED: insulin glargine (Lantus) pen - multi-dose SQ SCH (21:00)
== END 2023-11-05 15:29 | disposition home or self-care (01) | DRG 420 ==
LOC: ER 15:33 → UNDOADMIN 20:42 → ED HOLD 20:42 → PCU 3S 23:10 → ED HOLD 23:10 → PCU 3S 11-03 00:56
PROVIDERS: ADMIT Student in an Organized Health Care Education/Training Program; ATTEND Internal Medicine
DX: E10.10 Type 1 diabetes mellitus with ketoacidosis without coma (principal); N17.9 Acute kidney failure, unspecified; E10.43 Type 1 diabetes mellitus with diabetic autonomic (poly)neuropathy; F12.90 Cannabis use, unspecified, uncomplicated; E87.6 Hypokalemia; E87.1 Hypo-osmolality and hyponatremia; N40.0 Benign prostatic hyperplasia without lower urinary tract symptoms; N32.89 Other specified disorders of bladder; E86.0 Dehydration; K31.84 Gastroparesis; I10 Essential (primary) hypertension; Z88.2 Allergy status to sulfonamides; Z56.0 Unemployment, unspecified
CPT/HCPCS: 36415; 36600; 71045; 74176; 80048; 80053; 80305; 80320; 81001; 82803; 82948; 83605; 83690; 83735; 84100; 84132; 84145; 85018; 85025; 87040; 87081; 87502; 87503; 93005; 96365; 96366; 96368; 96375; 99285; A6258; C9113; G0378; J0696; J0780; J1644; J1815; J2270; J2405; J2765; J3480; J3490; J7030; J7060; J7070

== ENCOUNTER 2025-04-20 18:15 | Emergency (ER) | payer MEDICAID ==
[~2025-04-20] VITALS: Ht 182.9 cm; Wt 79.5 kg
[~2025-04-20 18:15] MED LIST changes: +METO-292 PO; +ONDA-245 PO; -ONDA8TAB13 PO; -PROM25TA14 PO
--- NOTE | 2025-04-20 18:31 | Physician Documentation ---
History of Present Illness ~ Chief Complaint: Hyperglycemia Stated Complaint: HYPERGLCEMIA Time Seen by MD: 18:26 Primary Medical Doctor: [facility] HPI This is a 34-year-old gentleman with a known history of type 1 diabetes, three days without his insulin, presents for evaluation of severe abdominal pain, nausea or vomiting including some episodes of coffee-ground emesis that began today. Similar to prior DKA. No particular palliating or aggravating factors. Did not attempt to treat it. Checked his blood sugar today at 2:00 p.m. and it read "high. Denies any other symptoms such as chest pain, fever, difficulty breathing, dysuria hematuria. Denies any concerns for tobacco, alcohol or illicit substances use Medication Reconciliation Allergies: Coded Allergies: Sulfa (Sulfonamide Antibiotics) (Verified Allergy, Unknown, 04/20/25) ondansetron (Verified Allergy, Unknown, 04/20/25) Scheduled Insulin Lispro (Admelog Solostar), 5-30 UNITS SQ QID, (Reported) Lisinopril (Lisinopril), 1 TAB PO DAILY, (Reported) Metoclopramide HCl (Reglan), 1 TAB PO Q8H Ondansetron 8mg ODT (Ondansetron Odt), 1 TAB PO Q6H Pantoprazole Sodium (Pantoprazole Sodium), 1 TAB PO DAILY, (Reported) Past Medical History Past Medical History: Hypertension, Diabetes Past Surgical History: no surgical history Alcohol Use: Other Drug Use: marijuana Lives with: Family Lives In: Home Occupation: unemployed Review of Systems ROS 10 point review of systems was performed and unless noted above in HPI is negative for acute process/complaint. Physical Exam Vital Signs: Temperature: 97.1, Source: Oral, Heart Rate: 90, Respiratory Rate: 16, BP: 125/90, Pulse Oximetry: 100, Weight: 79.500 Oxygen Flow Rate: 0 Physical Exam GENERAL: Awake, alert, oriented, GCS 15, no apparent distress, non-toxic appearing, answers questions, follows commands appropriately. Examined in bed 3. HEENT: Atraumatic, normocephalic, pupils equal, extraocular muscles intact, sclerae anicteric, mucus membranes moist, oropharynx is clear, no stridor. NECK: supple, full active range of motion, trachea midline, no thyromegaly, no lymphadenopathy, no JVD. CARDIOVASCULAR: regular rate/rhythm, no murmurs/gallops/rubs, Pulses are 2+ in all extremities and symmetric. Capillary refill less than 2 seconds. PULMONARY: Nonlabored, good air movement ,no respiratory distress, speaking in full sentences, clear to auscultation bilaterally, no wheezing, no ronchi, no rales, no accessory muscle use. GASTROINTESTINAL: Soft, diffuse tenderness to palpation without guarding or rebound reproducing chief complaint, non-distended, normal active bowel sounds, no organomegaly, no pulsatile masses, no CVA tenderness. NEUROLOGIC: Lucid with normal mental status. Normal facial symmetry. Moves all extremities symmetrically and with purpose. No truncal ataxia. Speech is fluid without evidence of dysarthria or aphasia, no focal deficits appreciated. MUSCULOSKELETAL: There is full range of motion of all extremities. There is no joint pain or joint swelling or joint erythema. There is no muscle pain or tenderness or swelling. EXTREMITIES: warm, well-perfused, no cyanosis, no clubbing, no edema, no acute deformities. Skin: warm, dry, no rashes or lesions, no jaundice, no petechiae orpurpura. No ecchymosis. PSYCHIATRIC: Normal affect, normal insight, normal concentration. Focused exam: [] Progress Results/Orders Results/Orders Orders - JESSIE MARTINEZ DO Urinalysis, Cult If Indicated (04/20/25 18:27) Chest,Single View (04/20/25 18:27) Saline Lock (04/20/25 18:27) Ct Abdomen Pelvis (04/20/25 18:27) Drug Screen, Urine (04/20/25 18:27) Completed Orders - JESSIE MARTINEZ DO Electrocardiogram (04/20/25 18:27) Cbc/Diff (04/20/25 18:27) CK (04/20/25 18:27) Lipase (04/20/25 18:27) PHOS (04/20/25 18:27) Chest,Single View (04/20/25 18:27) MG (04/20/25 18:27) Normal Saline 1000ml (0.9% Sodium Chlori (04/20/25 18:30) Ct Abdomen Pelvis (04/20/25 18:27) Hs Troponin I W Calculations (04/20/25 18:27) CMP (04/20/25 18:27) Ethanol (04/20/25 18:27) Prochlorperazine Inj (Compazine Inj) (04/20/25 18:30) Ketorolac Trometh 30mg/Ml Vial (Toradol (04/20/25 18:30) Normal Saline 1000ml (0.9% Sodium Chlori (04/20/25 18:30) Iohexol 300mg/Ml 100ml Inj. (Omnipaque-3 (04/20/25 18:34) PHOS (04/20/25 20:15) Medications Received in ER Medications (Trade) Dose Ordered Sig/Terrence Route PRN Reason Start Time Stop Time Status Last Admin Dose Admin (0.9% sodium chloride (NS) 1000ml IV soln) 1,000 ml ONCE ONCE IVB 04/20/25 18:30 04/20/25 18:31 DC 04/20/25 18:37 1,000 ML (Compazine inj) 10 mg ONCE ONCE IV 04/20/25 18:30 04/20/25 18:33 DC 04/20/25 18:38 10 MG (Toradol inj. 30mg/ml) 30 mg ONCE ONCE IV 04/20/25 18:30 04/20/25 18:31 DC 04/20/25 18:38 30 MG Sodium Chloride 1,000 ml @ 1,000 mls/hr ONCE ONCE IV 04/20/25 18:30 04/20/25 19:29 DC 04/20/25 18:37 1,000 MLS/HR Vital Signs 04/20/25 04/20/25 04/20/25 04/20/25 18:17 18:30 18:38 19:09 Temp 97.1 Pulse 90 78 Resp 16 20 20 16 B/P (MAP) 125/90 141/98 (112) Pulse Ox 100 96 O2 Flow Rate 0 0 04/20/25 19:38 Resp 16 Laboratory Tests Test 04/20/25 18:22 04/20/25 19:08 04/20/25 20:52 White Blood Count 10.1 Red Blood Count 4.26 L Hemoglobin 13.2 L Hematocrit 37.4 L Mean Corpuscular Volume 87.9 Mean Corpuscular Hemoglobin 31.0 Mean Corpuscular Hemoglobin Concent 35.3 Red Cell Distribution Width 11.9 Platelet Count 320 Mean Platelet Volume 8.0 Neutrophils (%) (Auto) 70.1 Lymphocytes (%) (Auto) 21.0 Monocytes (%) (Auto) 6.9 Eosinophils (%) (Auto) 1.2 Basophils (%) (Auto) 0.8 Neutrophils # (Auto) 7.1 Lymphocytes # (Auto) 2.1 Monocytes # (Auto) 0.7 Eosinophils # (Auto) 0.1 Basophils # (Auto) 0.1 CBC Comment Sodium Level 136 Potassium Level 3.4 L Chloride Level 101 Carbon Dioxide Level 19.3 L Anion Gap 16 Blood Urea Nitrogen 25 H Creatinine 1.77 H Estimated GFR/1.73 m2 44 BUN/Creatinine Ratio 14.1 Glucose Level 287 H Calcium Level 8.9 Phosphorus Level 0.4 *L 2.5 Magnesium Level 1.7 Total Bilirubin 0.8 Aspartate Amino Transf (AST/SGOT) 21 Alanine Aminotransferase (ALT/SGPT) 35 Alkaline Phosphatase 81 Total Creatine Kinase 84 Troponin I High Sensitivity 5 Total Protein 6.5 Albumin 3.4 Globulin 3.1 Albumin/Globulin Ratio 1.1 Lipase 29 Chemistry Comments Ethyl Alcohol Level < 10 Glucometer 228 H EKG/XRAY/CT/US/VASC/MRI EKG : Additional Comment EKG was obtained and interpreted by myself shows sinus rhythm of 73, normal MT interval, narrow QRS, no QT prolongation, normal axis, no STEMI. Medical Decision Making Findings Facility Status: ED Holds, [facility] process The plan was discussed with the patient, who demonstrates clear understanding of the plan and is in agreement with the plan unless otherwise noted in the chart. All questions have been answered, all concerns were addressed unless otherwise documented. I was available throughout their ED stay for frequent reassessment and questions. Differential Diagnoses (considered and possible or likely): [Differential diagnosis considered includes acute appendicitis, acute cholecystitis, pancreatitis, gastritis, PUD, diverticulitis, mesenteric ischemia, abdominal aortic aneurysm, bowel obstruction, enteritis, colitis, fecal impaction, volvulus, IBS, inflammatory bowel disease, specific food intolerance, peritonitis, perforated viscous, malignancy, UTI, abscess, and abdominal pain NOS. History, physical exam, and workup exclude many of the more serious causes listed above. ] ??Differential Diagnoses (considered and unlikely, not requiring evaluation currently): [Aortic/great vessels dissection was considered but it is unlikely based on absence of ripping, tearing, migratory chest pain, absence of syncope or focal neurologic deficits, physical examination indicating equal and symmetric pulses.] MDM Data Please see [facility] for the following: Independent Historians and external Records Review. Historian: [Patient] Independent Historians: ?[EMS, record review] Medication Management: [Reviewed medication list] Social History and determinants: [Reviewed] Please see the body of the note for the following: Any independent interpretations of ECG, imaging studies. All vitals signs/haemodynamics, ordered tests were independently reviewed and interpreted by myself. Nursing triage complaint and vitals reviewed, additional nursing notes were reviewed as available and I agree unless otherwise noted or documented in cont radiction in the chart Vital Signs: Independently reviewed Labs: Independently interpreted Imaging: Independently interpreted Old Medical Records: Independently reviewed, see [facility] for relevant summary and information Pulse Oximetry: [99%] interpreted as [normal on room air] by me [Naval Marine Engineer: [Regular Rate, Regular rhythm, no ectopy, NSR] reviewed and interpreted by me] Additionally notably showing: [Hemodynamics reviewed. The patient isn't febrile, not tachycardic, no evidence of hypotension respiratory distress. CBC normal metabolic panel notable for elevated glucose of 287. No gap. Normal bicarb of 19. Elevated creatinine concerning for BERYL. Lipase is normal. The patient did have markedly decreased phosphorus, however I strongly suspect seque stration from hyperventilation. Repeat phosphorus without any intervention was normal. Ethanol is negative. Advanced imaging of the abdomen was obtained showing thickening of the esophagus.] Tests considered but not ordered include: [Ultrasound has been considerably there is clinically no evidence of acute cholecystitis trees acid for ice chips] Social Determinants of Health Impact: Patient was evaluated in [facility] [place] to healthcare due to below par ratio of patient to medical providers. [] Comorbid Conditions Impacting Present Evaluation and Care/Treatment: [Diabetes mellitus, medication noncompliance] Management Discussions with other Healthcare Providers: [None] Treatment and Disposition Medication Management (Given or considered): [Fluid bolus, pain management, antiemetics]. See EMR for details Consideration for Hospitalization/Escalation/Deescalation of Care: Admission for observation has been considered, [however the patient is able to tolerate p.o., their symptoms are controlled, they are able to rely on oral medications, and their chief complaint/diagnosis can be managed on outpatient basis.] ?ED Course:?[Markedly improved.] ?Shared decision making:?[Patient is hemodynamically stable for discharge home with follow with their primary care provider. [ ] Specific and cautious return precautions provided and discussed with full understanding. Any incidental findings were also discussed and follow up recommendations given. [] All questions answered. Patient/family were able to verbalize back return precautions. Patient/family agree to plan. Copies of imaging and laboratory studies were provided.] Code status:?FULL Please see the full Electronic Medical Record for full details of nursing documentation, medications list, other records of complete past medical history and conditions, vital signs, laboratory studies, and any radiologic study interpretations by radiologists. Portions of this note were completed using [employer] dictation software and as a result there may exist minor errors in spelling. I have reviewed elements of past family and social history and agree as included in note. Departure Disposition: HOME / SELF CARE / HOMELESS Impression: Primary Impression: Hyperglycemia without ketosis Additional Impressions: Poorly controlled diabetes mellitus Abdominal pain Nausea and vomiting Condition: Improved Discharge Instructions: Hyperglycemia, [id number] Referrals: NO PRIMARY CARE PROVIDER (PCP) Prescriptions Metoclopramide HCl (Reglan) 10 Mg Tablet 1 TAB PO Q8H for 30 Days, #90 TAB 0 Refills before food and bedtime Prov: JESSIE MARTINEZ DO 04/20/25 Ondansetron 8mg ODT (Ondansetron Odt) 8 Mg Tab.rapdis 1 TAB PO Q6H for nausea/vomiting for 3 Days, #12 TAB 0 Refills Prov: JESSIE MARTINEZ DO 04/20/25 Education Educated: Patient Educated regarding: diagnosis, treatment, prognosis, need for follow up Signature Scribe Signature: No scribe Attestation: This note accurately reflects clinical decisions, work performed by myself, DO JUAN Guzman NICHOLAS M DO Apr 20, 2025 18:31
[2025-04-20] MEDS ORDERED: iohexol 300mg/ml 100ml inj. ONE (18:34)
[2025-04-20] MEDS: normal saline 1000ml 1,000 ML IV ONE (18:37)
[2025-04-20] MEDS: normal saline 1000ML IV soln IVB ONE (18:37)
[2025-04-20] MEDS: ketorolac trometh 30MG/ML vial 30 MG/ML VIAL IV ONE (18:38)
[2025-04-20 18:43] LABS: MEAN PLATELET VOLUME 8.0 FL (7.4-10.4); RED CELL DISTRIBUTION WIDTH 11.9 % (11.5-14.5)
--- NOTE | 2025-04-20 18:56 | ELECTROCARDIOGRAPH REPORT ---
[facility] Test Date: 2025-04-20 Test Time: 18:54:21 Pat Name: ALHAJI HUDSON Department: [facility]- Patient ID: [facility]-[id number] Room: Gender: M Slag Expander: : 1990 Requested By: JESSIE MARTINEZ Order Number: [id number] Reading MD: Measurements Intervals [place] Rate: 73 P: 93 WV: 153 QRS: 58 QRSD: 103 T: 70 QT: 416 QTc: 459 Interpretive Statements Sinus rhythm Left ventricular hypertrophy Please click the below link to view image of tracing.
[2025-04-20 19:09] LABS: CREATININE 1.77 MG/DL (0.60-1.10); TOTAL CARBON DIOXIDE 19.3 MMOL/L (24-32); eCRCL 64 ML/MIN; eGFR 44 ML/MIN
[2025-04-20 19:15] LABS: ETHANOL < 10 MG/DL (<10)
--- NOTE | 2025-04-20 19:29 | RADIOLOGY REPORT ---
CHEST RADIOGRAPH Indication: pain Technique: Single frontal view of the chest was obtained COMPARISON: DI CHEST,SINGLE VIEW on DOS: 11/02/23, FINDINGS: Lines and Tubes: None Lungs: Clear Pleura: No pleural effusion or pneumothorax. Cardiomediastinal contours: Unremarkable IMPRESSION: No abnormality demonstrated.
[2025-04-20 19:47] LABS: PHOSPHORUS 0.4 MG/DL (2.3-4.5)
--- NOTE | 2025-04-20 20:41 | RADIOLOGY REPORT ---
COMPUTERIZED TOMOGRAPHY ABDOMEN/PELVIS WITH INTRAVENOUS CONTRAST CLINICAL HISTORY: diffuse pain, n/v COMPARISON: CT CT ABDOMEN PELVIS on DOS: 11/02/23, CT CT ABDOMEN PELVIS on DOS: 08/02/23, CT CT ABDOME N PELVIS on DOS: 07/06/23, CT ABDOMEN PELVIS on DOS: 10/24/18 TECHNIQUE: After the administration of intravenous contrast, axial CT images of the chest, abdomen an d pelvis were obtained. 2-D coronal and sagittal reformatted images were provided. Radiation optimiza tion: All CT scans at this facility use at least one of these dose optimization techniques: Automated exposure control mA and/or kV adjustment per patient size (includes targeted exams where dose is mat ched to clinical indication) or iterative reconstruction. CONTRAST ADMINISTERED: 100 mL omnipaque 300, intravenously. RADIATION DOSE: CTDI: 12 mGy DLP: 640 mGy-cm FINDINGS: ABDOMEN/PELVIS: The visualized lung bases are grossly clear. There is no pleural effusion. There is no pericardial e ffusion. There is diffuse thickening of the visualized distal esophagus. The spleen is not enlarged. The liver is normal in size and contour. The portal vein is patent. No c alcified gallstone is identified. There is no pericholecystic edema. The pancreas is unremarkable. T he adrenal glands are normal. The kidneys are similar in size and enhance symmetrically. There is no hydronephrosis of either kidney. The urinary bladder is moderately distended but appears otherwise un remarkable. The prostate and seminal vesicles are within normal limits. There is a large stool ball d istending the rectum. The colonic stool burden is overall moderate. The appendix is normal. No free fluid is identified in the abdomen or pelvis. There is no abdominal aortic aneurysm. No pathologic ly mphadenopathy is identified by size criteria. There is no distention of the small bowel to suggest ob struction. No acute osseous abnormality is identified. IMPRESSION: Diffuse thickening of the visualized distal esophagus likely secondary to vomiting. Correlate clinica lly with history. No evidence of acute cholecystitis. No evidence of bowel obstruction. Normal appendix.
[2025-04-20 21:21] VITALS: BP 155/107
[2025-04-20] MEDS ORDERED: METO-292 PO (21:24)
[2025-04-20] MEDS ORDERED: ONDA-245 PO (21:24)
[2025-04-20 21:45] VITALS: PULSE 80; RESP 16; TEMP 97.5; O2SAT 98
== END 2025-04-20 21:50 | disposition home or self-care (01) ==
LOC: ER 18:15
DX: E10.65 Type 1 diabetes mellitus with hyperglycemia (principal); R11.2 Nausea with vomiting, unspecified; F12.90 Cannabis use, unspecified, uncomplicated; I10 Essential (primary) hypertension; Z79.4 Long term (current) use of insulin; Z88.2 Allergy status to sulfonamides; Z88.8 Allergy status to other drugs, medicaments and biological substances; Z79.899 Other long term (current) drug therapy; Z56.0 Unemployment, unspecified
CPT/HCPCS: 36415; 71045; 74177; 80053; 80320; 82550; 82948; 83690; 83735; 84100; 84484; 85025; 93005; 96361; 96374; 96375; 99285; J0780; J1885; J7030; Q9967